=== PATIENT | male | born 1970 | race Caucasian/White ===

== ENCOUNTER 2018-02-24 09:58 | Emergency (ER) | payer OTHER, SELFPAY ==
--- NOTE | 2018-02-24 10:44 | EKG ---
Test Date: 2018-02-24 Test Time: 10:22:34 Outside Medical Sales Representative: ROB MEASUREMENT RESULTS: Intervals: Rate: 72 ME: 156 QRSD: 90 QT: 410 QTc: 448 [place]: P: 16 ME: 156 QRS: 6 T: 26 INTERPRETIVE STATEMENTS: Normal sinus rhythm Minimal voltage criteria for LVH, may be normal variant Borderline ECG Compared to ECG 11/03/2016 20:03:18 Left ventricular hypertrophy now present Electronically Signed On 02-24-18 10:43:30 CDT by Erwin Saucedo
[2018-02-24 10:50] LABS: Absolute Lymphocytes (CBC) 1.9 K/uL (0.7-4.9); Absolute Monocytes 0.5 K/uL (0.1-1.3); Absolute Neutrophil 5.4 K/uL (1.8-8.0); Basophils % 0.8 % (0-1.3); Eosinophils % 1.7 % (0-4.4); Hematocrit 43.9 % (39.6-49.0); Lymphocytes % 23.2 % (15.3-44.8); MCH 30.4 pg (27.0-35.0); MCV 91.5 fL (80-100); MPV 8.5 fL (7.6-11.3); Monocytes % 6.8 % (3.3-12.3)
[2018-02-24 10:58] LABS: Protime INR 1.01
[2018-02-24 11:11] LABS: ALT/SGPT 52 U/L (12-78); AST/SGOT 34 U/L (15-37); Albumin 3.6 g/dL (3.4-5.0); Alkaline Phosphatase 120 U/L (45-117); BUN Blood Urea Nitrogen 16 mg/dL (7-18); Bicarbonate 31 mmol/L (21-32); Bilirubin Direct 0.1 mg/dL (0-0.2); Bilirubin Total 0.3 mg/dL (0.2-1.0); CKMB Creatine Kinase MB < 1.0 ng/mL (0.3-3.6); Creatine Phosphokinase 94 U/L (39-308); Glucose Level 115 mg/dL (74-106); Magnesium 2.1 mg/dL (1.8-2.4); NT PRO-BNP 100 pg/mL (<125); Potassium 4.1 mmol/L (3.5-5.1); Protein, Total 7.8 g/dL (6.4-8.2); Sodium Level 141 mmol/L (136-145)
--- NOTE | 2018-02-24 11:31 | RAD REPORT ---
EXAM DESCRIPTION: RAD - Chest Single View - 02/24/2018 11:26 am CLINICAL HISTORY: SOB Chest pain. COMPARISON: Chest Single View dated 11/03/2016 FINDINGS: Portable technique limits examination quality. Mild interstitial pulmonary edema seen. The heart is moderately enlarged. No displaced fractures. IMPRESSION: Mild CHF/ volume overload pattern.
[2018-02-24] MEDS ORDERED: FUROSEMIDE 40 MG/4 ML VIAL ONE (12:30)
--- NOTE | 2018-02-24 12:47 | ER ---
Nurse's Notes [facility] Name: Ihsan Montoya Age: 47 yrs Sex: Male : 1970 Arrival Date: 02/24/2018 Time: 10:01 Bed 2 Private MD: None, None Diagnosis: Anxiety disorder, unspecified;Shortness of breath;Congestive Heart Failure - chronic Presentation: 02/24 10:06 Presenting complaint: Patient states: Shortness of breath for a couple of weeks, sg reports worsens with activity, dizziness with standing. reports swelling in legs. Transition of care: patient was not received from another setting of care. Onset of symptoms was February 24, 2018. Risk Assessment: Do you want to hurt yourself or someone else? Patient reports no desire to harm self or others. Initial Sepsis Screen: Does the patient meet any 2 criteria? No. Patient's initial sepsis screen is negative. Does the patient have a suspected source of infection? No. Patient's initial sepsis screen is negative. Care prior to arrival: None. 10:06 Method Of Arrival: Ambulatory sg 10:06 Acuity: STEFAN 3 sg Historical: - Allergies: 10:08 Narcan; sg - Home Meds: 10:08 Methadone Oral [Active]; sg - PMHx: 10:08 drug abuse; EDEMA; Obesity; sg - PSHx: 10:08 None; sg - Immunization history:: Adult Immunizations not up to date. - Social history:: Smoking status: Patient uses tobacco products, smokes one-half pack cigarettes per day. - Ebola Screening: : Patient negative for fever greater than or equal to 101.5 degrees Fahrenheit, and additional compatible Ebola Virus Disease symptoms Patient denies exposure to infectious person Patient denies travel to an Ebola-affected area in the 21 days before illness onset No symptoms or risks identified at this time. Screenin:15 Abuse screen: Denies threats or abuse. Denies injuries from another. Nutritional sv screening: No deficits noted. Tuberculosis screening: No symptoms or risk factors identified. Fall Risk None identified. Assessment: 10:15 General: Appears in no apparent distress. uncomfortable, obese, Behavior is calm, sv cooperative, appropriate for age. Pain: Denies pain. Neuro: Level of Consciousness is awake, alert, obeys commands, Oriented to person, place, time, situation, Moves all extremities. Full function Gait is steady, Speech is normal. Neuro: Reports dizziness. Cardiovascular: Heart tones S1 S2 present Patient's skin is warm and dry. Rhythm is sinus rhythm. Respiratory: Reports shortness of breath on exertion Airway is patent Respiratory effort is even, unlabored, Respiratory pattern is symmetrical, tachypnea Breath sounds are diminished bilaterally. Derm: Skin is normal. Musculoskeletal: Range of motion: intact in all extremities, Swelling present in right leg and left leg Reports swelling has improved since being on lasix. 11:47 Reassessment: Patient appears in no apparent distress at this time. No changes from sv previously documented assessment. Patient and/or family updated on plan of care and expected duration. Pain level reassessed. Patient is alert, oriented x 3, equal unlabored respirations, skin warm/dry/pink. 12:31 Reassessment: Patient appears in no apparent distress at this time. Patient and/or sv family updated on plan of care and expected duration. Pain level reassessed. Patient is alert, oriented x 3, equal unlabored respirations, skin warm/dry/pink. Vital Signs: 10:09 BP 124 / 87; Pulse 83; Resp 21 S; Temp 97.8(O); Pulse Ox 89% on R/A; Pain 6/10; dh3 10:41 BP 121 / 65; Pulse 78; Resp 22; Pulse Ox 97% on 2 lpm NC; sv 11:47 BP 142 / 86; Pulse 72; Resp 21; Pulse Ox 96% on 2 lpm NC; sv 12:31 BP 128 / 76; Pulse 94; Resp 22; Pulse Ox 96% on 2 lpm NC; sv ED Course: 10:01 Patient arrived in ED. sb2 10:02 None, None is Private Physician. sb2 10:06 Arm band placed on. sg 10:08 Triage completed. sg 10:15 Patient has correct armband on for positive identification. Placed in gown. Bed in low sv position. shipbuilding draftsperson on. Pulse ox on. NIBP on. Door closed. Head of bed elevated. 10:15 Initial lab(s) drawn, by me, sent to lab. Inserted saline lock: 20 gauge in left sv forearm, using aseptic technique. Blood collected. Flushed left forearm with 5 ml normal saline. 10:31 Ida Casillas RN is Primary Nurse. sv 10:37 Prem Ng MD is Attending Physician. kdr 10:41 ED physician to see patient. sv 10:46 EKG done, by time study technician. reviewed by Prem Ng MD. at1 10:47 Basic Metabolic Panel Sent. sv 10:47 CBC with Diff Sent. sv 10:47 Ckmb Sent. sv 11:21 X-ray completed. Portable x-ray completed in exam room. Patient tolerated procedure jb2 well. 11:23 XRAY Chest (1 view) In Process Unspecified. EDMS 12:57 No provider procedures requiring assistance completed. IV discontinued, intact, sv bleeding controlled, No redness/swelling at site. Pressure dressing applied. Administered Medications: 12:30 Drug: Lasix 40 mg Route: IVP; Site: left forearm; sv 12:57 Follow up: Response: No adverse reaction sv Point of Care Testing: Blood Glucose: 10:32 Blood Glucose: 86 mg/dL; sv Ranges: Output: 12:57 Urine: 300ml (Voided); Total: 300ml. sv Outcome: 12:46 Discharge ordered by MD. kdr 12:58 Discharged to home ambulatory. sv 12:58 Condition: stable 12:58 Condition: improved 12:58 Discharge instructions given to patient, Instructed on discharge instructions, follow up and referral plans. medication usage, Demonstrated understanding of instructions, follow-up care, medications, Prescriptions given X 1. 12:58 Patient left the ED. sv Signatures: Dispatcher [employer] EDMS Ida Casillas RN RN sv Gay, Steven, RN RN Prem Ng MD MD kdr Buechter, Jesse jb2 Alia barahona, optical laboratory mechanic EKG Tat1 Laura Andrade dh3 Holly Wright sb2 Corrections: (The following items were deleted from the chart) 10:11 10:09 Pulse 83bpm; Resp 21bpm; Spontaneous; Pulse Ox 89% RA; Pain 6/10; sg sg 10:26 10:09 BP 124 / 87; Pulse 83bpm; Resp 21bpm; Spontaneous; Pulse Ox 89% RA; Pain 6/10; sg dh3
--- NOTE | 2018-02-24 12:47 | EDPHYS ---
Physician Documentation [facility] Name: Ihsan Montoya Age: 47 yrs Sex: Male : 1970 Arrival Date: 02/24/2018 Time: 10:01 Bed 2 Private MD: None, None ED Physician Prem Ng HPI: 02/24 18:26 This 47 yrs old Male presents to ER via Ambulatory with complaints of kdr Shortness Of Breath, Dizziness. 18:26 The patient has shortness of breath at rest, with light activity. Onset: The kdr symptoms/episode began/occurred gradually, 3 day(s) ago. Duration: The symptoms are intermittent, with no pattern. The patient's shortness of breath is aggravated by light activity, Anxiety. Severity of symptoms: At their worst the symptoms were mild in the emergency department the symptoms are unchanged. The patient has experienced similar episodes in the past, several times. The patient has not recently seen a physician. Historical: - Allergies: 10:08 Narcan; sg - Home Meds: 10:08 Methadone Oral [Active]; sg - PMHx: 10:08 drug abuse; EDEMA; Obesity; sg - PSHx: 10:08 None; sg - Immunization history:: Adult Immunizations not up to date. - Social history:: Smoking status: Patient uses tobacco products, smokes one-half pack cigarettes per day. - Ebola Screening: : Patient negative for fever greater than or equal to 101.5 degrees Fahrenheit, and additional compatible Ebola Virus Disease symptoms Patient denies exposure to infectious person Patient denies travel to an Ebola-affected area in the 21 days before illness onset No symptoms or risks identified at this time. ROS: 18:26 Constitutional: Negative for fever, chills, and weight loss, Eyes: Negative for injury, kdr pain, redness, and discharge, ENT: Negative for injury, pain, and discharge, Neck: Negative for injury, pain, and swelling, Respiratory: Negative for shortness of breath, cough, wheezing, and pleuritic chest pain, Abdomen/GI: Negative for abdominal pain, nausea, vomiting, diarrhea, and constipation, Back: Negative for injury and pain, : Negative for injury, bleeding, discharge, and swelling, MS/Extremity: Negative for injury and deformity, Skin: Negative for injury, rash, and discoloration, Neuro: Negative for headache, weakness, numbness, tingling, and seizure activity. Allergy/Immunology: Negative for hives, rash, and allergies, Endocrine: Negative for neck swelling, polydipsia, polyuria, polyphagia, and marked weight changes, Hematologic/Lymphatic: Negative for swollen nodes, abnormal bleeding, and unusual bruising. 18:26 Cardiovascular: Positive for palpitations, Negative for chest pain, edema, orthopnea, paroxysmal nocturnal dyspnea, acute changes. 18:26 Skin: Positive for diaphoresis, When his anxiety kicks in. Exam: 18:26 Constitutional: This is a well developed, well nourished obese patient who is awake, kdr alert, and in no acute distress. Head/Face: Normocephalic, atraumatic. Eyes: Pupils equal round and reactive to light, extra-ocular motions intact. Lids and lashes normal. Conjunctiva and sclera are non-icteric and not injected. Cornea within normal limits. Periorbital areas with no swelling, redness, or edema. Neck: Trachea midline, no thyromegaly or masses palpated, and no cervical lymphadenopathy. Supple, full range of motion without nuchal rigidity, or vertebral point tenderness. No Meningismus. Chest/axilla: Normal chest wall appearance and motion. Nontender with no deformity. No lesions are appreciated. Cardiovascular: Regular rate and rhythm with a normal S1 and S2. No gallops, murmurs, or rubs. Normal PMI, no JVD. No pulse deficits. Respiratory: Lungs have equal breath sounds bilaterally, clear to auscultation and percussion. No rales, rhonchi or wheezes noted. No increased work of breathing, no retractions or nasal flaring. Abdomen/GI: Soft, non-tender, with normal bowel sounds. No distension or tympany. No guarding or rebound. No evidence of tenderness throughout. Back: No spinal tenderness. No costovertebral tenderness. Full range of motion. Skin: Warm, dry with normal turgor. Normal color with no rashes, no lesions, and no evidence of cellulitis. MS/ Extremity: Pulses equal, no cyanosis. Neurovascular intact. Full, normal range of motion. Neuro: Awake and alert, GCS 15, oriented to person, place, time, and situation. Cranial nerves II-XII grossly intact. Motor strength 5/5 in all extremities. Sensory grossly intact. Cerebellar exam normal. Normal gait. Psych: Awake, alert, with orientation to person, place and time. Behavior, mood, and affect are within normal limits. 18:26 ECG was reviewed by the Attending Physician. kdr Vital Signs: 10:09 BP 124 / 87; Pulse 83; Resp 21 S; Temp 97.8(O); Pulse Ox 89% on R/A; Pain 6/10; dh3 10:41 BP 121 / 65; Pulse 78; Resp 22; Pulse Ox 97% on 2 lpm NC; sv 11:47 BP 142 / 86; Pulse 72; Resp 21; Pulse Ox 96% on 2 lpm NC; sv 12:31 BP 128 / 76; Pulse 94; Resp 22; Pulse Ox 96% on 2 lpm NC; sv MDM: 12:46 Patient medically screened. kdr 18:26 Data reviewed: vital signs, nurses notes. kdr 18:26 Special discussion: I discussed with the patient/guardian in detail that at this point kdr there is no indication for admission to the hospital. It is understood, however, that if the symptoms persist or worsen the patient needs to return immediately for re-evaluation. 02/24 10:33 Order name: Basic Metabolic Panel 02/24 10:33 Order name: CBC with Diff 02/24 10:33 Order name: Ckmb 02/24 10:33 Order name: CPK; Complete Time: 12:07 sv 02/24 10:33 Order name: LFT's; Complete Time: 12:07 sv 02/24 10:33 Order name: Magnesium; Complete Time: 12:07 02/24 10:33 Order name: NT PRO-BNP; Complete Time: 12:07 02/24 10:33 Order name: PT-INR; Complete Time: 12:07 sv 02/24 10:33 Order name: Ptt, Activated; Complete Time: 12:07 sv 02/24 10:33 Order name: Troponin (emerg Dept Use Only); Complete Time: 12:07 sv 02/24 10:33 Order name: Lactate; Complete Time: 12:07 sv 02/24 10:33 Order name: Blood Culture Adult (2) 02/24 10:33 Order name: Basic Metabolic Panel; Complete Time: 12:07 EDMS 02/24 10:33 Order name: CBC with Automated Diff; Complete Time: 12:07 EDMS 02/24 10:33 Order name: XRAY Chest (1 view); Complete Time: 12: sv 02/24 10:33 Order name: EKG; Complete Time: : sv 02/24 10:33 Order name: Cardiac monitoring; Complete Time: 10:33 sv 02/24 10:33 Order name: EKG - Nurse/Tech; Complete Time: 10:33 sv 02/24 10:33 Order name: IV Saline Lock; Complete Time: : sv 02/24 10:33 Order name: Labs collected and sent; Complete Time: : sv 02/24 10:33 Order name: O2 Per Protocol; Complete Time: : sv 02/24 10:33 Order name: O2 Sat Monitoring; Complete Time: : sv 02/24 10:33 Order name: CKMB Creatine Kinase MB; Complete Time: 12: EDMS EC:26 Rhythm is regular. QRS [place] is Normal. DE interval is normal. QRS interval is normal. kdr QT interval is normal. No Q waves. T waves are Normal. Clinical impression: NSR w/ Non-specific ST/T Changes. Administered Medications: 12:30 Drug: Lasix 40 mg Route: IVP; Site: left forearm; sv 12:57 Follow up: Response: No adverse reaction sv Point of Care Testing: Blood Glucose: 10:32 Blood Glucose: 86 mg/dL; sv Ranges: Critical Glucose Levels:Adult <50 mg/dl or >400 mg/dl <40 mg/dl or >180 mg/dl Disposition: 02/24/18 12:46 Discharged to Home. Impression: Anxiety disorder, unspecified, Shortness of breath, Congestive Heart Failure - chronic. - Condition is Stable. - Discharge Instructions: Shortness of Breath, [id number], Panic Attacks, [id number], Generalized Anxiety Disorder. - Prescriptions for Lasix 20 mg Oral Tablet - take 1 tablet by ORAL route every 12 hours; 60 tablet. - Medication Reconciliation Form, Thank You Letter form. - Follow up: Private Physician; When: 2 - 3 days; Reason: If symptoms return, Further diagnostic work-up, Recheck today's complaints, Continuance of care, Re-evaluation by your physician. - Problem is an acute exacerbation. - Symptoms have improved. Signatures: Dispatcher [employer] Ida Becerra RN RN Denis Diggs RN RN Prem Ng MD MD kdr Corrections: (The following items were deleted from the chart) 12:58 12:46 02/24/2018 12:46 Discharged to Home. Impression: Anxiety disorder, unspecified; sv Shortness of breath; Congestive Heart Failure - chronic. Condition is Stable. Forms are Medication Reconciliation Form, Thank You Letter, Antibiotic Education, Prescription Opioid Use. Follow up: Private Physician; When: 2 - 3 days; Reason: If symptoms return, Further diagnostic work-up, Recheck today's complaints, Continuance of care, Re-evaluation by your physician. Problem is an acute exacerbation. Symptoms have improved. kdr
[2018-02-24 13:03] VITALS: TEMP 97.8
[2018-02-24 13:05] VITALS: BP 142/86; O2SAT 96
== END 2018-02-24 12:58 | disposition home or self-care (01) ==
LOC: ER 09:58
DX: I50.9 Heart failure, unspecified (principal); F41.9 Anxiety disorder, unspecified; F17.210 Nicotine dependence, cigarettes, uncomplicated; Z88.5 Allergy status to narcotic agent
CPT/HCPCS: 36415; 71045; 80048; 80076; 82550; 82553; 82962; 83605; 83735; 83880; 84484; 85025; 85610; 85730; 87040; 93005; 96374; 99285

== ENCOUNTER 2018-05-26 06:47 | Inpatient (IN) | payer OTHER ==
[2018-05-26] MEDS ORDERED: ALBUTEROL 2.5 MG/3 ML NEB SOL ONE ×3 (07:07→19:53)
[2018-05-26] MEDS ORDERED: IPRATROPIUM BROM 0.5MG/2.5ML ONE ×3 (07:08→19:53)
[2018-05-26] MEDS ORDERED: predniSONE 20 MG TAB ONE (07:08)
[2018-05-26 07:20] LABS: Blood Gas Oxyhemoglobin 77.1 % (94-97); Blood O2 Saturation 80.1 % (92-98.5)
[2018-05-26 07:54] LABS: Absolute Lymphocytes (CBC) 1.7 K/uL (0.7-4.9); Absolute Monocytes 0.5 K/uL (0.1-1.3); Absolute Neutrophil 5.9 K/uL (1.8-8.0); Basophils % 0.9 % (0-1.3); Eosinophils % 1.5 % (0-4.4); Hematocrit 44.1 % (39.6-49.0); Lymphocytes % 20.1 % (15.3-44.8); MCH 30.7 pg (27.0-35.0); MCV 94.1 fL (80-100); MPV 8.6 fL (7.6-11.3); Monocytes % 6.3 % (3.3-12.3); RBC Red Blood Cell Count 4.68 M/uL (4.33-5.43)
[2018-05-26 07:55] LABS: Protime INR 1.02
--- NOTE | 2018-05-26 08:11 | RAD REPORT ---
EXAM DESCRIPTION: RAD - Chest Single View - 05/26/2018 7:53 am CLINICAL HISTORY: COPD Chest pain. COMPARISON: Chest Single View dated 02/24/2018; Chest Single View dated 11/03/2016 FINDINGS: Portable technique limits examination quality. Mild interstitial pulmonary edema is seen. The heart is mildly moderately enlarged in size. No displa john fractures. IMPRESSION: Mild CHF versus volume overload pattern.
[2018-05-26 08:15] LABS: ALT/SGPT 43 U/L (12-78); AST/SGOT 22 U/L (15-37); Albumin 3.7 g/dL (3.4-5.0); Alkaline Phosphatase 126 U/L (45-117); BUN Blood Urea Nitrogen 24 mg/dL (7-18); Bicarbonate 29 mmol/L (21-32); Bilirubin Direct < 0.1 mg/dL (0-0.2); Bilirubin Total 0.3 mg/dL (0.2-1.0); Glucose Level 161 mg/dL (74-106); Magnesium 2.4 mg/dL (1.8-2.4); NT PRO-BNP 29 pg/mL (<125); Potassium 4.6 mmol/L (3.5-5.1); Protein, Total 8.1 g/dL (6.4-8.2); Sodium Level 139 mmol/L (136-145); Troponin (Emerg Dept Use Only) < 0.02 ng/mL (0.0-0.045)
--- NOTE | 2018-05-26 10:07 | ER ---
Nurse's Notes [facility] Name: Ihsan Montoya Age: 48 yrs Sex: Male : 1970 Arrival Date: 05/26/2018 Time: 06:49 Bed 16 Private MD: Diagnosis: Shortness of breath;Respiratory Acidosis, sleep apnea, dependent edema Presentation: 05/26 07:00 Presenting complaint: EMS states: pt c/o SOB and family reported he was having aa1 difficulty speaking. Pt given A\\T\\A tx PUPPET MAKER by EMS. Upon arrival to ED pt 88% on RA which improved to 95% on 2L NC. Pt drowsy and falling asleep during triage questions. Reports his only home med is methadone and that he cannot receive Narcan because [facility] gave it to him the last time he was there and he "flat lined" twice. States, "I just have bad anxiety and trust issues because they snuck that Narcan into me without me knowing." Pt asked multiple times, "Are you sure you didn't give me anything in my IV.". Transition of care: patient was not received from another setting of care. Onset of symptoms was May 26, 2018. Risk Assessment: Do you want to hurt yourself or someone else? Patient reports no desire to harm self or others. Initial Sepsis Screen: Does the patient meet any 2 criteria? HR > 90 bpm. Does the patient have a suspected source of infection? No. Patient's initial sepsis screen is negative. Care prior to arrival: Medication(s) given: Albuterol Neb x 1, Atrovent Neb x 1, IV initiated. 20 GA, in the left antecubital area, Med neb given. Oxygen administered. via nasal cannula. 07:00 Method Of Arrival: EMS: [facility] aa1 07:00 Acuity: STEFAN 2 aa1 Historical: - Allergies: 07:15 Narcan; aa1 - Home Meds: 07:15 Methadone Oral [Active]; aa1 07:14 Methadone Oral [Active]; aa1 - PMHx: 06:51 Obesity; EDEMA; drug abuse; gs 07:13 Anxiety; Panic Attacks; aa1 - PSHx: 07:13 None; aa1 - Immunization history:: Flu vaccine is not up to date. - Social history:: The patient lives at home, Smoking status: Patient uses tobacco products, smokes one-half pack cigarettes per day. - Ebola Screening: : Patient denies exposure to infectious person Patient denies travel to an Ebola-affected area in the 21 days before illness onset. Screenin:55 Abuse screen: Denies threats or abuse. Denies injuries from another. Nutritional aa1 screening: No deficits noted. Tuberculosis screening: No symptoms or risk factors identified. Fall Risk IV access (20 points). Assessment: 07:05 General: Appears in no apparent distress. comfortable, Behavior is drowsy, listless. ch Pain: Denies pain. Neuro: Level of Consciousness is lethargic, Oriented to person, place, time, Medical Office Clerk are equal bilaterally Moves all extremities. Full function Gait is steady, Speech is slurred, Facial symmetry appears normal, Facial symmetry: tongue is midline, Pupils are PERRLA. 07:05 Cardiovascular: Heart tones muffled pt has a high bmi. Capillary refill < 3 seconds in ch bilateral fingers toes Clubbing of nail beds is present Patient's skin is warm and dry. Pulses are all present. Edema is 4+ to right wrist, right hand, left midcalf, left ankle, left foot, left wrist, left hand, right midcalf, right ankle and right foot pitting to left midcalf, left ankle, right midcalf and right ankle Rhythm is regular. Respiratory: Airway is patent Trachea midline Respiratory effort is even, labored, gasping, Respiratory pattern is pt has regular respirations with intermittent episodes of sleep apnea Breath sounds with crackles bilaterally. GI: Abdomen is round non-distended, obese, Bowel sounds present X 4 quads. Abd is soft and non tender X 4 quads. : No signs and/or symptoms were reported regarding the genitourinary system. Derm: Skin is pale. Musculoskeletal: No signs and/or symptoms reported regarding the musculoskeletal system. 07:59 Reassessment: Patient appears in no apparent distress at this time. pt tolerating bi ch pap well. pt states he feels anxious, pt given verbal reassurance. pt respiratory pattern still has some apnea in it, pt responds to verbal stimuli, positive gag reflex. 08:36 Reassessment: Patient appears in no apparent distress at this time. No changes from previously documented assessment. pt appears to be sleeping, no s/s of distress. 12:59 Reassessment: Patient appears in no apparent distress at this time. No changes from previously documented assessment. I call report to the floor, Nafisa states pt is going to ICU. 14:00 Reassessment: Patient appears in no apparent distress at this time. Patient and/or ch family updated on plan of care and expected duration. Pain level reassessed. pt assisted oob, stands to use urinal. pt tolerated well. pt educated on admission and wait for ICU bed. 15:41 Reassessment: Patient appears in no apparent distress at this time. see [facility] for charting. Vital Signs: 06:50 BP 116 / 83; Pulse 103; Resp 16; Temp 98.6; Pulse Ox 95% on 2 lpm NC; Weight 192.78 kg; aa1 Height 5 ft. 11 in. (180.34 cm); Pain 0/10; 07:59 BP 170 / 95; Pulse 90; Resp 16; Temp 98.3; Pulse Ox 96% on 50% BiPAP; Pain 0/10; ch 08:36 BP 117 / 50; Pulse 80; Resp 12; Pulse Ox 97% on BiPAP; ch 10:00 BP 134 / 86; Pulse 78; Resp 16; Pulse Ox 99% on BiPAP; ch 11:00 BP 147 / 89; Pulse 84; Resp 12; Pulse Ox 97% on BiPAP; ch 12:00 BP 126 / 68; Pulse 75; Resp 10; Temp 98.2; Pulse Ox 99% on BiPAP; Pain 0/10; ch 12:59 BP 161 / 97; Pulse 98; Resp 22; Temp 98.8; Pulse Ox 96% on BiPAP; Pain 0/10; ch 19:09 BP 113 / 61; Pulse 103; Resp 20; Pulse Ox 95% on BiPAP; mt 05/27 00:14 BP 112 / 64; Pulse 79; Resp 20; Pulse Ox 100% on BiPAP; mt 05/26 06:50 Body Mass Index 59.27 (192.78 kg, 180.34 cm) aa1 ED Course: 05/26 06:49 Patient arrived in ED. am2 06:49 Oral Ordonez MD is Attending Physician. 06:50 Arm band placed on left wrist. Patient placed in an exam room, on a stretcher. aa1 06:55 Velia Aguirre, GENNA is Primary Nurse. 06:55 Patient has correct armband on for positive identification. Bed in low position. Call aa1 light in reach. monitor worker on. Pulse ox on. NIBP on. 06:55 Maintain EMS IV. Dressing intact. Site clean \\T\\ dry. Gauge \\T\\ site: 20g LAC. Oxygen aa 1 administration via nasal cannula \\T\\ 2L/min. 07:10 Triage completed. aa1 07:15 No apparent distress. Resting quietly. ch 07:15 No provider procedures requiring assistance completed. Inserted saline lock: 20 gauge ch in left forearm, using aseptic technique. Blood collected. 07:29 Attending Physician role handed off by Oral Ordonez MD kdr 07:29 Prem Ng MD is Attending Physician. kdr 07:51 X-ray completed. Portable x-ray completed in exam room. Patient tolerated procedure ag1 well. 07:52 XRAY Chest (1 view) In Process Unspecified. EDMS 07:59 Door closed. Noise minimized. Warm blanket given. Pillow given. ch 10:05 Lacie Medel MD is Hospitalizing Provider. kdr 19:28 Report given to Tim. ch 20:16 Curt Cook, GENNA is Primary Nurse. jb4 05/27 03:30 Patient admitted, IV remains in place. aa1 Administered Medications: 05/26 07:00 Drug: Albuterol 2.5 mg Route: Inhalation; ch 08:35 Follow up: Response: No adverse reaction; Marked relief of symptoms ch 07:00 Drug: AtroVENT Aerosol 0.5 mg Route: Inhalation; ch 08:35 Follow up: Response: No adverse reaction; Marked relief of symptoms ch 07:00 Drug: predniSONE 40 mg Route: PO; ch 08:35 Follow up: Response: No adverse reaction; Marked relief of symptoms ch Outcome: 10:06 Decision to Hospitalize by Provider. kdr 19:00 Admitted to ER Hold. Please see [facility] for further documentation. jb4 05/27 03:30 Admitted to ICU accompanied by nurse, accompanied by tech, via stretcher, room 5, with aa1 oxygen, on monitor, with chart, Other Report given to Lisa in ICU by Rodri Condition: stable 03:50 Patient left the ED. aa1 Signatures: Dispatcher [employer] EDMS Velia Aguirre RN RN Kenisha Turcios RN RN aa1 Prem Ng MD MD [facility] Daria Davis ag1 Curt Cook, RN RN jb4 Alia Berkowitz am2 Shante Paige mt, Gregory, MD MD gs Corrections: (The following items were deleted from the chart) 05/26 07:15 06:51 Allergies: Narcan [Inactive]; aa1 07:15 06:51 Home Meds: Methadone Oral [Inactive]; aa1
--- NOTE | 2018-05-26 10:08 | EKG ---
Test Date: 2018-05-26 Test Time: 07:07:36 [employer]ying [employer]: CHRISTOPHER MEASUREMENT RESULTS: Intervals: Rate: 104 MT: 166 QRSD: 90 QT: 326 QTc: 428 [place]: P: 43 MT: 166 QRS: 18 T: 59 INTERPRETIVE STATEMENTS: Sinus tachycardia Otherwise normal ECG Compared to ECG 02/24/2018 10:22:34 Sinus rhythm no longer present Left ventricular hypertrophy no longer present Electronically Signed On 05-26-18 10:08:05 CAGE UNLOADER by Erwin Saucedo
--- NOTE | 2018-05-26 10:08 | EDPHYS ---
Physician Documentation [facility] Name: Ihsan Montoya Age: 48 yrs Sex: Male : 1970 Arrival Date: 05/26/2018 Time: 06:49 Bed 16 Private MD: ED Physician Prem Ng HPI: 05/26 06:50 This 48 yrs old Male presents to ER via Unassigned with complaints of gs Breathing Difficulty. 06:50 The patient has shortness of breath at rest. Onset: The symptoms/episode began/occurred gs acutely, this morning. Duration: The symptoms are continuous. The patient's shortness of breath is aggravated by exertion, is alleviated by nebulizer treatment, by ems. Associated signs and symptoms: Pertinent positives: productive cough, Pertinent negatives: chest pain, fever. Severity of symptoms: At their worst the symptoms were severe in the emergency department the symptoms have improved markedly. The patient has experienced similar episodes in the past, a few times. Historical: - Allergies: 07:15 Narcan; aa1 - Home Meds: 07:15 Methadone Oral [Active]; aa1 07:14 Methadone Oral [Active]; aa1 - PMHx: 06:51 Obesity; EDEMA; drug abuse; gs 07:13 Anxiety; Panic Attacks; aa1 - PSHx: 07:13 None; aa1 - Immunization history:: Flu vaccine is not up to date. - Social history:: The patient lives at home, Smoking status: Patient uses tobacco products, smokes one-half pack cigarettes per day. - Ebola Screening: : Patient denies exposure to infectious person Patient denies travel to an Ebola-affected area in the 21 days before illness onset. ROS: 06:51 All other systems are negative. gs 05/27 13:48 Constitutional: Negative for fever, chills, and weight loss, Cardiovascular: Negative kdr for chest pain, palpitations, and edema, Abdomen/GI: Negative for abdominal pain, nausea, vomiting, diarrhea, and constipation, Back: Negative for injury and pain, : Negative for injury, bleeding, discharge, and swelling, MS/Extremity: Negative for injury and deformity. Respiratory: Positive for shortness of breath. Exam: 05/26 06:51 Head/Face: Normocephalic, atraumatic. Eyes: Pupils equal round and reactive to light, gs extra-ocular motions intact. Lids and lashes normal. Conjunctiva and sclera are non-icteric and not injected. Cornea within normal limits. Periorbital areas with no swelling, redness, or edema. ENT: Nares patent. No nasal discharge, no septal abnormalities noted. Tympanic membranes are normal and external auditory canals are clear. Oropharynx with no redness, swelling, or masses, exudates, or evidence of obstruction, uvula midline. Mucous membranes moist. Neck: Trachea midline, no thyromegaly or masses palpated, and no cervical lymphadenopathy. Supple, full range of motion without nuchal rigidity, or vertebral point tenderness. No Meningismus. Chest/axilla: Normal chest wall appearance and motion. Nontender with no deformity. No lesions are appreciated. Abdomen/GI: Soft, non-tender, with normal bowel sounds. No distension or tympany. No guarding or rebound. No evidence of tenderness throughout. Back: No spinal tenderness. No costovertebral tenderness. Full range of motion. Skin: Warm, dry with normal turgor. Normal color with no rashes, no lesions, and no evidence of cellulitis. Neuro: Awake and alert, GCS 15, oriented to person, place, time, and situation. Cranial nerves II-XII grossly intact. Motor strength 5/5 in all extremities. Sensory grossly intact. Cerebellar exam normal. Normal gait. Constitutional: The patient appears alert, awake. Cardiovascular: Rate: tachycardic, Rhythm: regular, Pulses: no pulse deficits are appreciated, Edema: 3+ edema to level of left midcalf, left ankle, right midcalf and right ankle, venous stasis changes. Respiratory: severe repiratory distress is noted, Respirations: tachypnea, Breath sounds: decreased breath sounds, that are moderate, are located in both bases. Musculoskeletal/extremity: Perfusion: the patient is normally perfused throughout, warm, Edema. Vital Signs: 06:50 BP 116 / 83; Pulse 103; Resp 16; Temp 98.6; Pulse Ox 95% on 2 lpm NC; Weight 192.78 kg; aa1 Height 5 ft. 11 in. (180.34 cm); Pain 0/10; 07:59 BP 170 / 95; Pulse 90; Resp 16; Temp 98.3; Pulse Ox 96% on 50% BiPAP; Pain 0/10; ch 08:36 BP 117 / 50; Pulse 80; Resp 12; Pulse Ox 97% on BiPAP; ch 10:00 BP 134 / 86; Pulse 78; Resp 16; Pulse Ox 99% on BiPAP; ch 11:00 BP 147 / 89; Pulse 84; Resp 12; Pulse Ox 97% on BiPAP; ch 12:00 BP 126 / 68; Pulse 75; Resp 10; Temp 98.2; Pulse Ox 99% on BiPAP; Pain 0/10; ch 12:59 BP 161 / 97; Pulse 98; Resp 22; Temp 98.8; Pulse Ox 96% on BiPAP; Pain 0/10; ch 19:09 BP 113 / 61; Pulse 103; Resp 20; Pulse Ox 95% on BiPAP; mt 05/27 00:14 BP 112 / 64; Pulse 79; Resp 20; Pulse Ox 100% on BiPAP; hi 05/26 06:50 Body Mass Index 59.27 (192.78 kg, 180.34 cm) aa1 MDM: 05/26 06:49 Patient medically screened. 06:51 Differential diagnosis: Bronchitis CHF exacerbation, Chronic Obstructive Pulmonary gs Disease. Data reviewed: vital signs, nurses notes, EMS record. 05/26 06:55 Order name: Basic Metabolic Panel; Complete Time: 09:54 05/26 06:55 Order name: CBC with Diff; Complete Time: 09:54 05/26 06:55 Order name: LFT's; Complete Time: 09:54 05/26 06:55 Order name: Magnesium; Complete Time: 09:54 05/26 06:55 Order name: NT PRO-BNP; Complete Time: 09:54 05/26 06:55 Order name: PT-INR; Complete Time: 09:54 05/26 06:55 Order name: Troponin (emerg Dept Use Only); Complete Time: 09:54 05/26 06:55 Order name: Blood Culture* 05/26 06:55 Order name: Flu; Complete Time: 09:54 05/26 06:55 Order name: ABG; Complete Time: 07:31 05/26 15:23 Order name: Urine Dipstick--Ancillary (enter results) bd 05/26 15:50 Order name: Urine Dipstick-Ancillary; Complete Time: 21:11 EDMS 05/26 16:29 Order name: Thyroid Stimulating Hormone; Complete Time: 21:11 [facility] 05/26 16:43 Order name: ABG 05/26 06:55 Order name: XRAY Chest (1 view); Complete Time: 09:54 05/26 06:55 Order name: EKG; Complete Time: 07:18 05/26 06:55 Order name: Cardiac monitoring; Complete Time: 08:05 05/26 06:55 Order name: EKG - Nurse/Tech; Complete Time: 08:05 05/26 06:55 Order name: IV Saline Lock; Complete Time: 08:05 05/26 06:55 Order name: Labs collected and sent; Complete Time: 08:05 05/26 06:55 Order name: O2 Per Protocol; Complete Time: 08:05 05/26 06:55 Order name: O2 Sat Monitoring; Complete Time: 08:05 05/26 17:08 Order name: ABG Arterial Blood Gas; Complete Time: 21:11 [facility] 05/26 23:39 Order name: ABG Arterial Blood Gas; Complete Time: 00:40 [facility] 05/27 01:32 Order name: Gram Stain--Anaerobic Bottle [facility] 05/27 02:38 Order name: ABG Arterial Blood Gas EDMS Administered Medications: 07:00 Drug: Albuterol 2.5 mg Route: Inhalation; ch 08:35 Follow up: Response: No adverse reaction; Marked relief of symptoms ch 07:00 Drug: AtroVENT Aerosol 0.5 mg Route: Inhalation; ch 08:35 Follow up: Response: No adverse reaction; Marked relief of symptoms ch 07:00 Drug: predniSONE 40 mg Route: PO; ch 08:35 Follow up: Response: No adverse reaction; Marked relief of symptoms Disposition: 05/26/18 10:06 Hospitalization ordered by Lacie Medel for Inpatient Admission. Preliminary diagnosis are Shortness of breath, Respiratory Acidosis, sleep apnea, dependent edema. - Bed requested for Intensive Care Unit. - Status is Inpatient Admission. aa1 - Condition is Fair. - Problem is an acute exacerbation. - Symptoms have improved. UTI on Admission? No Signatures: Dispatcher [employer] EDMS Latha Mejia Christina, RN RN Denis Welch RN RN Kenisha Turcios RN RN aa1 Prem Ng MD MD kdr Martinez, Eric em1 Josefina Arroyo RN RN cg Christina Alva RN RN df Oral Ordonez MD MD gs Corrections: (The following items were deleted from the chart) 07:15 06:51 Allergies: Narcan [Inactive]; aa1 07:15 06:51 Home Meds: Methadone Oral [Inactive]; aa1 12:30 10:06 Hospitalization Ordered by Lacie Medel MD for Observation. Preliminary bd diagnosis is Shortness of breath; Respiratory Acidosis, sleep apnea, dependent edema. Bed requested for Telemetry/MedSurg (observation). Status is Observation. Condition is Fair. Problem is an acute exacerbation. Symptoms have improved. UTI on Admission? No. kdr 13:41 12:30 05/26/2018 10:06 Hospitalization Ordered by Lacie Medel MD for Observation. bd Preliminary diagnosis is Shortness of breath; Respiratory Acidosis, sleep apnea, dependent edema. Bed requested for Telemetry/MedSurg (observation). Status is Observation. Condition is Fair. Problem is an acute exacerbation. Symptoms have improved. UTI on Admission? No. bd 15:06 13:41 05/26/2018 10:06 Hospitalization Ordered by Lacie Medel MD for Inpatient sg Admission. Preliminary diagnosis is Shortness of breath; Respiratory Acidosis, sleep apnea, dependent edema. Bed requested for Intensive Care Unit. Status is Inpatient Admission. Condition is Fair. Problem is an acute exacerbation. Symptoms have improved. UTI on Admission? No. bd 15:07 15:06 05/26/2018 10:06 Hospitalization Ordered by Lacie Medel MD for Inpatient sg Admission. Preliminary diagnosis is Shortness of breath; Respiratory Acidosis, sleep apnea, dependent edema. Bed requested for [facility] ER HOLD. Status is Inpatient Admission. Condition is Fair. Problem is an acute exacerbation. Symptoms have improved. UTI on Admission? No. sg 18:31 15:07 05/26/2018 10:06 Hospitalization Ordered by Lacie Medel MD for Inpatient df Admission. Preliminary diagnosis is Shortness of breath; Respiratory Acidosis, sleep apnea, dependent edema. Bed requested for [facility] ER HOLD. Status is Inpatient Admission. Condition is Fair. Problem is an acute exacerbation. Symptoms have improved. UTI on Admission? No. sg 20:28 18:31 05/26/2018 10:06 Hospitalization Ordered by Lacie Medel MD for Inpatient cg Admission. Preliminary diagnosis is Shortness of breath; Respiratory Acidosis, sleep apnea, dependent edema. Bed requested for Intensive Care Unit. Status is Inpatient Admission. Condition is Fair. Problem is an acute exacerbation. Symptoms have improved. UTI on Admission? No. df 05/27 02:49 05/26 20:28 05/26/2018 10:06 Hospitalization Ordered by Lacie Medel MD for Inpatient em1 Admission. Preliminary diagnosis is Shortness of breath; Respiratory Acidosis, sleep apnea, dependent edema. Bed requested for Intensive Care Unit. Status is Inpatient Admission. Condition is Fair. Problem is an acute exacerbation. Symptoms have improved. UTI on Admission? No. cg 05/27 03:50 02:49 05/26/2018 10:06 Hospitalization Ordered by Lacie Medel MD for Inpatient aa1 Admission. Preliminary diagnosis is Shortness of breath; Respiratory Acidosis, sleep apnea, dependent edema. Bed requested for Intensive Care Unit. Status is Inpatient Admission. Condition is Fair. Problem is an acute exacerbation. Symptoms have improved. UTI on Admission? No. em1
[2018-05-26] MEDS ORDERED: ONDANSETRON 4 MG/2 ML VIAL ONE (14:47)
[2018-05-26] MEDS ORDERED: ACETAMINOPHEN 500 MG TAB ONE ×2 (14:47→18:05)
[2018-05-26] MEDS ORDERED: LEVALBUTEROL 1.25 MG/3 ML NEB ONE (15:16)
[2018-05-26] MEDS ORDERED: ONDANSETRON 4 MG/2 ML VIAL IV PRN (15:35)
[2018-05-26] MEDS: ACETAMINOPHEN 500 MG TAB PO PRN ×2 (15:39→18:02)
[2018-05-26 15:49] LABS: Urine Blood NEGATIVE (NEG); Urine Glucose NEGATIVE (NEG); Urine Protein 1+ (NEG); Urine Specific Gravity >1.030 (1.005-1.030); Urine pH 5.5 (5.0-7.0)
[2018-05-26] MEDS: ALBUTEROL 2.5 MG/3 ML NEB SOL NEB SCH ×2 (16:14→19:30)
[2018-05-26] MEDS: IPRATROPIUM BROM 0.5MG/2.5ML NEB SCH ×2 (16:14→19:30)
[2018-05-26] MEDS: ENOXAPARIN 40 MG/0.4 ML SQ SCH (17:00)
[2018-05-26 17:06] LABS: Arterial Blood Carboxyhemoglob 1.8 % (0-1.5); Blood Gas Oxyhemoglobin 92.4 % (94-97); Blood O2 Saturation 95.2 % (92-98.5)
--- NOTE | 2018-05-26 17:36 | P.HP ---
Certification for Inpatient Patient admitted to: Inpatient With expected LOS: >2 Midnights Patient will require the following post-hospital care: None Practitioner: I am a practitioner with admitting privileges, knowledge of patient current condition, hospital course, and medical plan of care. Services: Services provided to patient in accordance with Admission requirements found in Title 42 Section 412.3 of the Code of Federal Regulations Patient History Date of Service: 05/26/18 Reason for admission: SOB History of Present Illness: 48 y/o With H.o Obesity and KEITH presented to the ED with C/o SOB and tiredness that started for past couple of days. pt noted this AM his Oxygen was < 88% and thus decided to come to the ER. Pt states he has not been using his CPAP due to Not being able to afford it. Denied having cough or congestion. Has not been seen by PCP recently. Pt denied recent sick exposure, fever or chills. No other associated Symptoms. In the ER pt was found to be in Acute Respiratory failure with Elevated CO2 and thus was referred for admission. Allergies naloxone [From Narcan] Allergy (Unverified 11/04/16 00:12) Unknown No Known Drug Allergies Allergy (Unverified 10/17/14 19:33) Unknown No Known Allergy (Uncoded 03/15/17 16:01) Unknown - Past Medical/Surgical History Diabetic: No - Social History Smoking Status: Current every day smoker Alcohol use: No CD- Drugs: Yes Caffeine use: No Place of Residence: Home Review of Systems 10-point ROS is otherwise unremarkable Physical Examination - Vital Signs Temperature: 98.6 F Blood Pressure: 127/71 Pulse: 92 Respirations: 12 Pulse Ox (%): 99 - Physical Exam General: Alert, Acute distress, Obese, Other (Intermittent Lethargy) HEENT: Atraumatic, PERRLA, Mucous membr. moist/pink, EOMI, Sclerae nonicteric Neck: Supple, 2+ carotid pulse no bruit, No LAD, Without JVD or thyroid abnormality Respiratory: Normal air movement, Crackles/rales, Expiratory wheezes, Inspiratory wheezes Cardiovascular: Regular rate/rhythm, Normal S1 S2 Gastrointestinal: Normal bowel sounds, No tenderness Musculoskeletal: No tenderness Integumentary: No rashes Neurological: Normal gait, Normal speech, Normal strength at 5/5 x4 extr, Normal tone, Normal affect Lymphatics: No axilla or inguinal lymphadenopathy - Studies Laboratory Data (last 24 hrs) 05/26/18 07:30: PT 12.0, INR 1.02 05/26/18 07:30: WBC 8.3, Hgb 14.4, Hct 44.1, Plt Count 219 05/26/18 07:30: Sodium 139, Potassium 4.6, BUN 24 H, Creatinine 1.00, Glucose 161 H, Magnesium 2.4, Total Bilirubin 0.3, AST 22, ALT 43, Alkaline Phosphatase 126 H Microbiology Data (last 24 hrs): 05/26/18 07:34 Nasopharnyx Influenza Type A Antigen Screen - Final 05/26/18 07:34 Nasopharnyx Influenza Type B Antigen Screen - Final Assessment and Plan - Problems (Diagnosis) (1) Acute respiratory failure Current Visit: Yes Status: Acute Plan: Acute Hypoxic hypercapnic RF due to noncompliance with CPAP. -Pt with h.o KEITH but cannot affort CPAP machine thus has not been using it. -On BIPAP now. ABG with Hypercapnic RF. -Will admit to ICU in an event patient has worsening and needs to be intubated -Pulmonology consulted. Qualifiers: Respiratory failure complication: hypoxia and hypercapnia Qualified Code(s) : J96.01 - Acute respiratory failure with hypoxia; J96.02 - Acute respiratory failure with hypercapnia (2) KEITH (obstructive sleep apnea) Current Visit: Yes Status: Chronic Plan: H/o KEITH but does not use CPAP at home (3) Obesity Current Visit: Yes Status: Chronic Qualifiers: Obesity type: due to excess calories Obesity classification: adult class 3 (BMI >= 40) Serious obesity comorbidity presence: with serious comorbidity Body mass index: BMI 45.0-49.9 Qualified Code(s): E66.01 - Morbid (severe) obesity due to excess calories; Z68.42 - Body mass index (BMI) 45.0-49.9, adult (4) Anxiety Current Visit: Yes Status: Chronic Discharge Plan: Home Plan to discharge in: Greater than 2 days - Advance Directives Does patient have a Living Will: No Does patient have a Durable POA for Healthcare: No - Code Status/Comfort Care Code Status Assessed: Yes Critical Care: Yes
[2018-05-26] MEDS ORDERED: INFLUENZA VACCINE (for 3y+) 0.5 ML DOSE IMVAC ONE (18:00)
[2018-05-26] MEDS ORDERED: ENOXAPARIN 40 MG/0.4 ML SQ ONE (18:12)
[2018-05-26 23:37] LABS: Arterial Blood Carboxyhemoglob 1.4 % (0-1.5); Blood Gas Oxyhemoglobin 91.7 % (94-97); Blood O2 Saturation 94.1 % (92-98.5)
[2018-05-27 02:34] LABS: Arterial Blood Carboxyhemoglob 1.6 % (0-1.5); Blood Gas Oxyhemoglobin 97.2 % (94-97); Blood O2 Saturation 99.5 % (92-98.5)
[2018-05-27] MEDS: IPRATROPIUM BROM 0.5MG/2.5ML NEB SCH ×4 (03:10→19:33)
[2018-05-27] MEDS: ALBUTEROL 2.5 MG/3 ML NEB SOL NEB SCH ×4 (03:10→19:33)
[2018-05-27 04:17] VITALS: BMI 59.3
[2018-05-27 06:21] LABS: Absolute Monocytes 0.5 K/uL (0.1-1.3); Absolute Neutrophil 7.5 K/uL (1.8-8.0); Basophils % 0.2 % (0-1.3); Hematocrit 41.7 % (39.6-49.0); Lymphocytes % 10.7 % (15.3-44.8); MCH 30.8 pg (27.0-35.0); MCV 94.8 fL (80-100); MPV 8.6 fL (7.6-11.3); Monocytes % 5.3 % (3.3-12.3)
[2018-05-27 06:48] LABS: ALT/SGPT 36 U/L (12-78); AST/SGOT 17 U/L (15-37); Alkaline Phosphatase 108 U/L (45-117); BUN Blood Urea Nitrogen 21 mg/dL (7-18); Bicarbonate 34 mmol/L (21-32); Glucose Level 153 mg/dL (74-106); Sodium Level 140 mmol/L (136-145)
[2018-05-27 06:49] LABS: Albumin 3.4 g/dL (3.4-5.0); Bilirubin Total 0.3 mg/dL (0.2-1.0); HDL Cholesterol 35 mg/dL (40-60); LDL Cholesterol, Calculated 90 (<130); Magnesium 2.5 mg/dL (1.8-2.4); Phosphorus 3.5 mg/dL (2.5-4.9); Protein, Total 7.5 g/dL (6.4-8.2)
[2018-05-27 07:55] LABS: Arterial Blood Carboxyhemoglob 1.4 % (0-1.5); Blood Gas Oxyhemoglobin 82.7 % (94-97); Blood O2 Saturation 84.4 % (92-98.5)
[2018-05-27] MEDS: ENOXAPARIN 40 MG/0.4 ML SQ SCH (08:35)
[2018-05-27 11:58] LABS: Barbiturates NEGATIVE (NEGATIVE); Benzodiazepines NEGATIVE (NEGATIVE); Cocaine NEGATIVE (NEGATIVE); METHAMPHETAM NEGATIVE (NEGATIVE); Methadone POSITIVE (NEGATIVE); Opiates NEGATIVE (NEGATIVE); Phencyclidine NEGATIVE (NEGATIVE); THC Cannibis NEGATIVE (NEGATIVE)
--- NOTE | 2018-05-27 12:44 | P.CNS ---
Date of Consult: 05/27/18 Reason for Consult: Respiratory failure Chief Complaint: SOB History of Present Illness: Patient is 48 years of age admitted with hypoxic hypercapnic respiratory failure shortness of breath patient has a history off of presumed sleep apnea refuse CPAP refuse intubation currently he is alert responsive cooperative on a BiPAP is CO2 narcosis is worse when he does not have any other medical history Allergies naloxone [From Narcan] Allergy (Severe, Verified 05/27/18 08:55) Anaphylaxis - Past Medical/Surgical History Diabetic: No - Social History Smoking Status: Current every day smoker Alcohol use: No CD- Drugs: Yes Caffeine use: No Place of Residence: Home Review of Systems is unable to be obtained Physical Examination Temp Pulse Resp BP Pulse Ox 97.9 F 79 25 H 112/47 L 99 05/27/18 03:30 05/27/18 12:00 05/27/18 12:00 05/27/18 12:00 05/27/18 12:00 General: Alert, Cooperative Neck: Supple Respiratory: Clear to auscultation bilaterally, Diminished Cardiovascular: No edema, Normal S1 S2 Gastrointestinal: Normal bowel sounds, Soft and benign - Problems (1) Acute respiratory failure Current Visit: Yes Status: Acute Plan: Patient is 48 years of age admitted with hypoxic hypercapnic respiratory failure he has refused intubation does not use the CPAP at home labs reviewed unremarkable thyroid function tests is normal probably has obesity hyperventilation syndrome or severe sleep apnea patient also smokes may have underlying obstructive airways disease this is hypercapnia as worse I have adjusted the settings titrate sat to 90% repeat ABGs in call chest x-ray is underpenetrated 2D echo with Doppler Qualifiers: Respiratory failure complication: hypoxia and hypercapnia Qualified Code(s) : J96.01 - Acute respiratory failure with hypoxia; J96.02 - Acute respiratory failure with hypercapnia
--- NOTE | 2018-05-27 13:09 | P.PN ---
Subjective Date of Service: 05/27/18 Chief Complaint: SOB Patient seen and examined at bedside with RN. Chart reviewed. Case discussed with pulmonology. Currently patient has worsening of his hypercapnia. Unable to stay up. However refuses intubation. Is alert and oriented x3. No complaints to offer overnight. This morning complained of having some headaches. Review of Systems 10-point ROS is otherwise unremarkable Physical Examination - Vital Signs Temperature: 97.9 F Blood Pressure: 112/47 Pulse: 79 Respirations: 25 Pulse Ox (%): 99 - Physical Exam General: Alert, Oriented x2, Mild distress, Obese HEENT: Atraumatic, PERRLA, EOMI Neck: Supple, JVD not distended Respiratory: Diminished, Expiratory wheezes, Inspiratory wheezes Cardiovascular: Regular rate/rhythm, Normal S1 S2 Gastrointestinal: Normal bowel sounds, No tenderness Musculoskeletal: No tenderness Integumentary: No rashes Neurological: Normal speech, Normal tone, Normal affect Lymphatics: No axilla or inguinal lymphadenopathy - Studies Microbiology Data (last 24 hrs): 05/26/18 07:34 Nasopharnyx Influenza Type A Antigen Screen - Final 05/26/18 07:34 Nasopharnyx Influenza Type B Antigen Screen - Final Medications List Reviewed: Yes Assessment And Plan - Current Problems (Diagnosis) (1) Acute respiratory failure Current Visit: Yes Status: Acute Plan: Acute Hypoxic hypercapnic RF due to noncompliance with CPAP. -Pt with h.o KEITH but cannot afford CPAP machine thus has not been using it. -On BIPAP now. ABG with Hypercapnic RF. -continue on BiPAP at this time. Patient refuses intubate -Pulmonology consulted. Qualifiers: Respiratory failure complication: hypoxia and hypercapnia Qualified Code(s) : J96.01 - Acute respiratory failure with hypoxia; J96.02 - Acute respiratory failure with hypercapnia (2) KEITH (obstructive sleep apnea) Current Visit: Yes Status: Chronic Plan: H/o KEITH but does not use CPAP at home (3) Obesity Current Visit: Yes Status: Chronic Qualifiers: Obesity type: due to excess calories Obesity classification: adult class 3 (BMI >= 40) Serious obesity comorbidity presence: with serious comorbidity Body mass index: BMI 45.0-49.9 Qualified Code(s): E66.01 - Morbid (severe) obesity due to excess calories; Z68.42 - Body mass index (BMI) 45.0-49.9, adult (4) Anxiety Current Visit: Yes Status: Chronic Discharge Plan: Home Plan to discharge in: Greater than 2 days - Code Status/Comfort Care Code Status Assessed: Yes Critical Care: Yes
--- NOTE | 2018-05-27 13:42 | RAD REPORT ---
EXAM DESCRIPTION: RAD - Chest Single View - 05/27/2018 1:36 pm CLINICAL HISTORY: sob Chest pain. COMPARISON: Chest Single View dated 05/26/2018; Chest Single View dated 02/24/2018; Chest Single View dated 11/03/2016 FINDINGS: Portable technique limits examination quality. Lungs appear mildly underinflated with subsegmental atelectasis in both lung bases suspected. No foca l infiltrate detected. Heart is mildly enlarged in size. No displaced fractures.
[2018-05-27 14:03] LABS: Arterial Blood Carboxyhemoglob 1.5 % (0-1.5); Blood Gas Oxyhemoglobin 86.2 % (94-97); Blood O2 Saturation 88.1 % (92-98.5)
[2018-05-27] MEDS: ACETAMINOPHEN 500 MG TAB PO PRN (17:15)
--- NOTE | 2018-05-27 17:30 | ECHO ---
HEIGHT: 5 ft 11 in WEIGHT: 425 lb 0 oz DATE OF STUDY: 05/27/[address]: Emile Faust MD 2-DIMENSIONAL: YES M.MODE: YES DOPPLER: YES COLOR FLOW: YES TDS: PORTABLE: DEFINITY: BUBBLE STUDY: DIAGNOSIS: RESPIRATORY FAILURE CARDIAC HISTORY: CATHERIZATION: NO SURGERY: NO PROSTHETIC VALVE: NO PACEMAKER: NO MEASUREMENTS (cm) DIASTOLIC (NORMALS) SYSTOLIC (NORMALS) IVSd 1.4 (0.6-1.2) LA Diam 4.6 (1.9-4.0) LVEF 65% LVIDd 5.4 (3.5-5.7) LVIDs 3.4 (2.0-3.5) %FS 36% LVPWd 1.2 (0.6-1.2) Ao Diam 3.0 (2.0-3.7) 2 DIMENSIONAL ASSESSMENT: RIGHT ATRIUM: NORMAL LEFT ATRIUM: DILATED RIGHT VENTRICLE: NORMAL LEFT VENTRICLE: LEFT VENTRICULAR HYPERTROPHY TRICUSPID VALVE: NORMAL MITRAL VALVE: NORMAL PULMONIC VALVE: NORMAL AORTIC VALVE: NORMAL PERICARDIAL EFFUSION: NONE AORTIC ROOT: NORMAL LEFT VENTRICULAR WALL MOTION: NORMAL DOPPLER/COLOR FLOW: MILD TRICUSPID REGURGITATION. MILD PULMONARY HYPERTENSION. ESTIMATED RIGHT VENTRICULAR SYSTOLIC PRESSURE 39 mmHg. COMMENTS: NORMAL LEFT VENTRICULAR EJECTION FRACTION. LEFT VENTRICULAR HYPERTROPHY. DILATED LEFT ATRIUM. MILD TRICUSPID REGURGITATION. MILD PULMONARY HYPERTENSION. TECHNOLOGIST: MELLO KOO
[2018-05-28] MEDS: ACETAMINOPHEN 500 MG TAB PO PRN ×2 (01:56→15:32)
[2018-05-28] MEDS: ALBUTEROL 2.5 MG/3 ML NEB SOL NEB SCH ×2 (02:11→08:30)
[2018-05-28] MEDS: IPRATROPIUM BROM 0.5MG/2.5ML NEB SCH ×2 (02:11→08:30)
[2018-05-28 06:13] LABS: Absolute Lymphocytes (CBC) 1.9 K/uL (0.7-4.9); Absolute Monocytes 0.8 K/uL (0.1-1.3); Basophils % 0.7 % (0-1.3); Eosinophils % 0.4 % (0-4.4); Lymphocytes % 18.9 % (15.3-44.8); MCV 93.5 fL (80-100); MPV 8.7 fL (7.6-11.3); RBC Red Blood Cell Count 4.17 M/uL (4.33-5.43)
[2018-05-28 06:33] LABS: ALT/SGPT 31 U/L (12-78); AST/SGOT 17 U/L (15-37); Albumin 3.3 g/dL (3.4-5.0); Alkaline Phosphatase 92 U/L (45-117); BUN Blood Urea Nitrogen 19 mg/dL (7-18); Bicarbonate 36 mmol/L (21-32); Bilirubin Total 0.4 mg/dL (0.2-1.0); Glucose Level 92 mg/dL (74-106); Magnesium 2.1 mg/dL (1.8-2.4); Phosphorus 1.6 mg/dL (2.5-4.9); Potassium 4.4 mmol/L (3.5-5.1); Protein, Total 7.1 g/dL (6.4-8.2); Sodium Level 140 mmol/L (136-145)
[2018-05-28] MEDS ORDERED: SODIUM PHOSPHATE 20 MM in NA CHLORIDE 0.9% 250 ML IV ONE (07:30)
[2018-05-28] MEDS: ENOXAPARIN 40 MG/0.4 ML SQ SCH (08:40)
--- NOTE | 2018-05-28 11:21 | P.PN ---
Subjective Date of Service: 05/28/18 Chief Complaint: Hypercapnic respiratory failure Subjective: Improving (Patient is doing well condition stable he probably has underlying severe obstructive sleep apnea or obesity hyperventilation syndrome patient is agreeable to have a sleep study done. Tolerating BiPAP) Review of Systems is unable to be obtained Physical Examination - Vital Signs Temperature: 97.8 F Blood Pressure: 145/71 Pulse: 66 Respirations: 20 Pulse Ox (%): 98 - Physical Exam General: Alert, Cooperative Respiratory: Clear to auscultation bilaterally, Diminished Cardiovascular: Edema (Mild edema) - Studies Medications List Reviewed: Yes Assessment & Plan - Problems (Diagnosis) (1) Acute respiratory failure Onset Date: 05/27/18 Current Visit: Yes Status: Acute Plan: Patient is 48 years of age with the I suspect chronic hypoxic hypercapnic respiratory failure probably underlying due to obstructive sleep apnea or obesity hyperventilation syndrome patient will need an urgent outpatient sleep study and I have requested from the hospital for the patient to be scheduled he will benefit from a BiPAP right now plan is to titrate sat to 90% with nasal cannula oxygen to see if he qualifies for home oxygen the have to sleep in an upright position until he has a BiPAP machine Qualifiers: Respiratory failure complication: hypoxia and hypercapnia Qualified Code(s) : J96.01 - Acute respiratory failure with hypoxia; J96.02 - Acute respiratory failure with hypercapnia
[2018-05-28] MEDS ORDERED: ALBUTEROL 2.5 MG/3 ML NEB SOL NEB PRN (11:22)
[2018-05-28 13:54] LABS: Arterial Blood Carboxyhemoglob 1.9 % (0-1.5); Blood Gas Oxyhemoglobin 88.4 % (94-97); Blood O2 Saturation 90.7 % (92-98.5)
--- NOTE | 2018-05-28 14:47 | P.PN ---
Subjective Date of Service: 05/28/18 Chief Complaint: Hypercapnic respiratory failure Patient seen and examined at bedside with RN. Chart reviewed. Case discussed with pulmonology. Doing well overall. ABG with Improvement this AM. Pt educated on the use of Methadone. Transfer to the floor today Review of Systems 10-point ROS is otherwise unremarkable Physical Examination - Vital Signs Temperature: 97.8 F Blood Pressure: 148/78 Pulse: 76 Respirations: 14 Pulse Ox (%): 96 - Physical Exam General: Alert, In no apparent distress, Oriented x3, Obese HEENT: Atraumatic, PERRLA, EOMI Neck: Supple, JVD not distended Respiratory: Normal air movement, Expiratory wheezes, Inspiratory wheezes Cardiovascular: Regular rate/rhythm, Normal S1 S2 Gastrointestinal: Normal bowel sounds, No tenderness Musculoskeletal: No tenderness Integumentary: No rashes Neurological: Normal speech, Normal tone, Normal affect Lymphatics: No axilla or inguinal lymphadenopathy - Studies Medications List Reviewed: Yes Assessment And Plan - Current Problems (Diagnosis) (1) Acute respiratory failure Onset Date: 05/27/18 Current Visit: Yes Status: Acute Plan: Acute Hypoxic hypercapnic RF due to noncompliance with CPAP vs narcotic use -Pt with h.o KEITH but cannot afford CPAP machine thus has not been using it. -take Methadone at home. may need to readjust the dose at discharge -On NC now. ABG with Improvement today -Pulmonology consulted. Appreciate Reccs Qualifiers: Respiratory failure complication: hypoxia and hypercapnia Qualified Code(s) : J96.01 - Acute respiratory failure with hypoxia; J96.02 - Acute respiratory failure with hypercapnia (2) KEITH (obstructive sleep apnea) Onset Date: 05/27/18 Current Visit: Yes Status: Chronic Plan: H/o KEITH but does not use CPAP at home -Will setup for outpt sleep study at discharge (3) Obesity Onset Date: 05/27/18 Current Visit: Yes Status: Chronic Qualifiers: Obesity type: due to excess calories Obesity classification: adult class 3 (BMI >= 40) Serious obesity comorbidity presence: with serious comorbidity Body mass index: BMI 45.0-49.9 Qualified Code(s): E66.01 - Morbid (severe) obesity due to excess calories; Z68.42 - Body mass index (BMI) 45.0-49.9, adult (4) Anxiety Onset Date: 05/27/18 Current Visit: Yes Status: Chronic (5) Narcotic drug use Current Visit: Yes Status: Acute Plan: OPn methadone. On hold now due to risk for Respiratory depression - Plan Transfer to the floor observe for another 24 hrs for improvement. Setup Outpt sleep study. DC home once clinical improvement seen Discharge Plan: Home Plan to discharge in: 24 Hours - Code Status/Comfort Care Code Status Assessed: Yes Critical Care: No
[2018-05-29] MEDS: ACETAMINOPHEN 500 MG TAB PO PRN ×2 (04:31→12:20)
[2018-05-29 04:51] LABS: Absolute Lymphocytes (CBC) 2.1 K/uL (0.7-4.9); Absolute Monocytes 0.7 K/uL (0.1-1.3); Absolute Neutrophil 6.8 K/uL (1.8-8.0); Basophils % 0.6 % (0-1.3); Eosinophils % 0.5 % (0-4.4); Hematocrit 41.2 % (39.6-49.0); Lymphocytes % 21.6 % (15.3-44.8); MCH 30.9 pg (27.0-35.0); MCV 92.5 fL (80-100); MPV 8.5 fL (7.6-11.3); Monocytes % 7.5 % (3.3-12.3); RBC Red Blood Cell Count 4.46 M/uL (4.33-5.43)
[2018-05-29 05:20] LABS: ALT/SGPT 31 U/L (12-78); AST/SGOT 23 U/L (15-37); Albumin 3.1 g/dL (3.4-5.0); Alkaline Phosphatase 91 U/L (45-117); BUN Blood Urea Nitrogen 17 mg/dL (7-18); Bicarbonate 33 mmol/L (21-32); Bilirubin Total 0.5 mg/dL (0.2-1.0); Glucose Level 98 mg/dL (74-106); Phosphorus 1.6 mg/dL (2.5-4.9); Potassium 3.9 mmol/L (3.5-5.1); Protein, Total 6.9 g/dL (6.4-8.2); Sodium Level 141 mmol/L (136-145)
[2018-05-29] MEDS ORDERED: POTASSIUM PHOS IN 0.9 % NACL 15 MMOL/250 ML BAG IV ONE (05:51)
[2018-05-29] MEDS: ENOXAPARIN 40 MG/0.4 ML SQ SCH (09:19)
[2018-05-29 10:25] VITALS: O2SAT 98
[2018-05-29 10:44] VITALS: TEMP 98
--- NOTE | 2018-05-29 11:15 | P.DS ---
Admission Date: 05/26/18 Discharge Date: 05/29/18 Disposition: ROUTINE DISCHARGE Discharge Condition: GOOD Reason for Admission: Hypercapnic respiratory failure Consultations: Pulmonology - Problems (1) Acute respiratory failure Onset Date: 05/27/18 Current Visit: Yes Status: Acute Qualifiers: Respiratory failure complication: hypoxia and hypercapnia Qualified Code(s) : J96.01 - Acute respiratory failure with hypoxia; J96.02 - Acute respiratory failure with hypercapnia (2) KEITH (obstructive sleep apnea) Onset Date: 05/27/18 Current Visit: Yes Status: Chronic (3) Obesity Onset Date: 05/27/18 Current Visit: Yes Status: Chronic Qualifiers: Obesity type: due to excess calories Obesity classification: adult class 3 (BMI >= 40) Serious obesity comorbidity presence: with serious comorbidity Body mass index: BMI 45.0-49.9 Qualified Code(s): E66.01 - Morbid (severe) obesity due to excess calories; Z68.42 - Body mass index (BMI) 45.0-49.9, adult (4) Anxiety Onset Date: 05/27/18 Current Visit: Yes Status: Chronic (5) Narcotic drug use Current Visit: Yes Status: Acute Brief History of Present Illness: 48 y/o With H.o Obesity and KEITH presented to the ED with C/o SOB and tiredness that started for past couple of days. pt noted this AM his Oxygen was < 88% and thus decided to come to the ER. Pt states he has not been using his CPAP due to Not being able to afford it. Denied having cough or congestion. Has not been seen by PCP recently. Pt denied recent sick exposure, fever or chills. No other associated Symptoms. In the ER pt was found to be in Acute Respiratory failure with Elevated CO2 and thus was referred for admission. Hospital Course: Overall during the hospital stay patient remained stable Patient was initially admitted to the hospital for acute respiratory failure most likely secondary to hypercapnia secondary to noncompliance with CPAP versus narcotic abuse. Patient does take methadone 100 mg at all. When he presented to the ED he was minimally arousable and was immediately placed on BiPAP as he refused intubation initially. BiPAP was continued for next 24-48 hr. Initial there was no improvement in his status however once patient became alert and awake as he did improve on his BiPAP overnight. Patient then was weaned off to nasal cannula and eventually to room air. Patient was advised to get a sleep study done as outpatient to get a CPAP machine however he stated that he cannot afford a CPAP machine and would try to go to sleep study as soon as he can. Patient was also advised to stop taking the methadone and 120 mg dose. Patient was asked to follow up with his primary care provider who will be readjusting his methadone on David patient was asked to decrease the dose down to 100 mg as it might be causing him to have respiratory failure. Patient stated that he understands the risks and benefit and would like to continue on 120 and will talk to his primary care doctor regarding it. After having a conversation about diet exercise weight loss as well patient then was discharged home under stable condition was asked to follow up with pulmonology in about station will be addressing his CPAP evaluation and methadone reduction dosage with his primary care doctor and his director industrial. No further complications noted while here in the hospital. Patient then was discharged home under stable condition Vital Signs/Physical Exam: Temp Pulse Resp BP Pulse Ox 98 F 53 20 192/80 H 94 05/29/18 08:00 05/29/18 08:00 05/29/18 08:00 05/29/18 08:00 05/29/18 08:00 General: Alert, In no apparent distress, Obese HEENT: Atraumatic, PERRLA, EOMI Neck: Supple, JVD not distended Respiratory: Clear to auscultation bilaterally, Normal air movement Cardiovascular: Regular rate/rhythm, Normal S1 S2 Gastrointestinal: Normal bowel sounds, No tenderness Musculoskeletal: No tenderness Integumentary: No rashes Neurological: Normal speech, Normal tone, Normal affect Lymphatics: No axilla or inguinal lymphadenopathy Laboratory Data at Discharge: WBC 9.7 K/uL (4.3-10.9) 05/29/18 04:16 Hgb 13.8 g/dL (13.6-17.9) 05/29/18 04:16 Hct 41.2 % (39.6-49.0) 05/29/18 04:16 Plt Count 209 K/uL (152-406) 05/29/18 04:16 PT 12.0 SECONDS (9.5-12.5) 05/26/18 07:30 INR 1.02 05/26/18 07:30 Sodium 141 mmol/L (136-145) 05/29/18 04:16 Potassium 3.9 mmol/L (3.5-5.1) 05/29/18 04:16 BUN 17 mg/dL (7-18) 05/29/18 04:16 Creatinine 0.70 mg/dL (0.55-1.3) 05/29/18 04:16 Glucose 98 mg/dL (74-106) 05/29/18 04:16 Phosphorus 1.6 mg/dL (2.5-4.9) L 05/29/18 04:16 Magnesium 2.0 mg/dL (1.8-2.4) 05/29/18 04:16 Total Bilirubin 0.5 mg/dL (0.2-1.0) 05/29/18 04:16 AST 23 U/L (15-37) 05/29/18 04:16 ALT 31 U/L (12-78) 05/29/18 04:16 Alkaline Phosphatase 91 U/L (45-117) 05/29/18 04:16 Triglycerides 181 mg/dL (<150) H 05/27/18 05:50 Cholesterol 161 mg/dL (<200) 05/27/18 05:50 HDL Cholesterol 35 mg/dL (40-60) L 05/27/18 05:50 Cholesterol/HDL Ratio 4.60 05/27/18 05:50 Patient Discharge Instructions: Please f.u with PCP and Dr Lemon. You will need to have your methadone dose readjusted to lower dose as it is causing your respiratory failure. Diet: ADA Activity: Ad wlifredo Followup: Emile Faust MD [ACTIVE - CAN ADMIT] - 1 Week
[2018-05-29 11:16] VITALS: BP 166/86
== END 2018-05-29 12:32 | disposition home or self-care (01) | DRG 189 ==
LOC: ER 06:47 → OBSVTOIN 10:08 → ERHOLD 10:08 → 3RD-ICU 05-27 03:44 → 2ND 05-28 14:40
PROVIDERS: ADMIT Family Medicine; ATTEND Family Medicine
PROC: 5A09457 Assistance with Respiratory Ventilation, 24-96 Consecutive Hours, Continuous Positive Airway Pressure (ICD-10-PCS; principal; 2018-05-26)
DX: J96.01 Acute respiratory failure with hypoxia (principal); Z68.42 Body mass index [BMI] 45.0-49.9, adult; J96.02 Acute respiratory failure with hypercapnia; G47.33 Obstructive sleep apnea (adult) (pediatric); E66.01 Morbid (severe) obesity due to excess calories; F41.9 Anxiety disorder, unspecified; Z91.19 Patient's noncompliance with other medical treatment and regimen; F17.210 Nicotine dependence, cigarettes, uncomplicated; F11.90 Opioid use, unspecified, uncomplicated
CPT/HCPCS: 36415; 71045; 80048; 80053; 80061; 80076; 80307; 81003; 82805; 83735; 83880; 84100; 84443; 84484; 85025; 85610; 87040; 87205; 87804; 93005; 93306; 94640; 94660; 94760; 99285; J1650; J2405; J7512

== ENCOUNTER 2018-06-12 08:37 | Emergency (ER) | payer OTHER ==
[2018-06-12 09:30] LABS: Absolute Lymphocytes (CBC) 1.9 K/uL (0.7-4.9); Absolute Monocytes 0.4 K/uL (0.1-1.3); Absolute Neutrophil 6.1 K/uL (1.8-8.0); Basophils % 0.6 % (0-1.3); Hematocrit 40.8 % (39.6-49.0); Lymphocytes % 21.7 % (15.3-44.8); MCH 30.8 pg (27.0-35.0); MCV 91.8 fL (80-100); MPV 8.4 fL (7.6-11.3); Protime INR 1.05; RBC Red Blood Cell Count 4.45 M/uL (4.33-5.43)
[2018-06-12 09:48] LABS: ALT/SGPT 39 U/L (12-78); AST/SGOT 16 U/L (15-37); Albumin 3.4 g/dL (3.4-5.0); Alkaline Phosphatase 97 U/L (45-117); BUN Blood Urea Nitrogen 17 mg/dL (7-18); Bicarbonate 31 mmol/L (21-32); Bilirubin Direct < 0.1 mg/dL (0-0.2); Bilirubin Total 0.3 mg/dL (0.2-1.0); Glucose Level 128 mg/dL (74-106); Magnesium 2.2 mg/dL (1.8-2.4); NT PRO-BNP 77 pg/mL (<125); Potassium 4.1 mmol/L (3.5-5.1); Protein, Total 7.4 g/dL (6.4-8.2); Sodium Level 140 mmol/L (136-145); Troponin (Emerg Dept Use Only) < 0.02 ng/mL (0.0-0.045)
--- NOTE | 2018-06-12 10:45 | EDPHYS ---
Physician Documentation [facility] Name: Ihsan Montoya Age: 48 yrs Sex: Male : 1970 Arrival Date: 06/12/2018 Time: 08:41 Bed 14 Private MD: None, None ED Physician Hernando Echeverria HPI: 06/12 09:10 This 48 yrs old Male presents to ER via Ambulatory with complaints of Anxiety.cp 09:10 The patient has shortness of breath occurred after patient awoke from sleep. cp 09:10 Associated signs and symptoms: Pertinent negatives: chest pain, productive cough, cp diaphoresis, dizziness, fever, vomiting. Patient reports he felt anxious after awakening from sleep in car. Reports history of sleep apnea but awaiting sleep study and CPAP machine. Historical: - Allergies: 08:56 Narcan; "body fits"; hb - Home Meds: 08:56 Methadone 80 mg Oral once daily [Active]; hb - PMHx: 08:56 Anxiety; drug abuse; EDEMA; Obesity; Panic Attacks; hb - PSHx: 08:56 None; hb - Immunization history:: Adult Immunizations up to date. - Social history:: Smoking status: Patient uses tobacco products, smokes one-half pack cigarettes per day. - Ebola Screening: : No symptoms or risks identified at this time. ROS: 09:15 Constitutional: Negative for body aches, chills, fever, poor PO intake. cp 09:15 Eyes: Negative for injury, pain, redness, and discharge. cp 09:15 ENT: Negative for drainage from ear(s), ear pain, sore throat, difficulty swallowing, difficulty handling secretions. 09:15 Cardiovascular: Positive for edema, Negative for chest pain, palpitations. 09:15 Respiratory: Positive for shortness of breath, Negative for cough, wheezing. 09:15 Abdomen/GI: Negative for abdominal pain, nausea, vomiting, and diarrhea. 09:15 Back: Negative for pain at rest, pain with movement, radiated pain. 09:15 Neuro: Negative for altered mental status, headache, weakness. 09:15 Psych: Positive for anxiety. 09:15 All other systems are negative. Exam: 09:22 Constitutional: The patient appears in no acute distress, alert, awake, cp non-diaphoretic, non-toxic, well developed, well nourished, obese. 09:22 Head/Face: Normocephalic, atraumatic. Eyes: Pupils equal round and reactive to light, cp extra-ocular motions intact. Lids and lashes normal. Conjunctiva and sclera are non-icteric and not injected. Cornea within normal limits. Periorbital areas with no swelling, redness, or edema. ENT: Nares patent. No nasal discharge, no septal abnormalities noted. Tympanic membranes are normal and external auditory canals are clear. Oropharynx with no redness, swelling, or masses, exudates, or evidence of obstruction, uvula midline. Mucous membranes moist. Chest/axilla: Normal chest wall appearance and motion. Nontender with no deformity. No lesions are appreciated. 09:22 Cardiovascular: Rate: normal, Rhythm: regular, Edema: ankle edema, that is moderate, JVD: is not appreciated. 09:22 Respiratory: the patient does not display signs of respiratory distress, Respirations: normal, no use of accessory muscles, no retractions, no splinting, no tachypnea, labored breathing, is not present, Breath sounds: are clear throughout, no decreased breath sounds, no stridor, no wheezing. 09:22 Abdomen/GI: Inspection: obese Bowel sounds: active, all quadrants, Palpation: abdomen is soft and non-tender, in all quadrants, rebound tenderness, is not appreciated, voluntary guarding, is not appreciated, involuntary guarding, is not appreciated. 09:22 Back: pain, is absent, ROM is normal. 09:22 Skin: cellulitis, is not appreciated, no rash present. 09:22 Neuro: Orientation: to person, place \\T\\ time. Mentation: is normal, Cerebellar function: is grossly normal, Motor: is normal, Sensation: is normal. Vital Signs: 08:54 BP 155 / 93; Pulse 78; Resp 16; Temp 98; Pulse Ox 94% on R/A; Pain 0/10; hb 09:53 BP 157 / 98; Pulse 76; Resp 20; Pulse Ox 97% on R/A; rb1 10:50 BP 166 / 65; Pulse 81; Resp 19; Pulse Ox 96% on R/A; rb1 MDM: 08:50 Patient medically screened. cp 09:30 Differential diagnosis: Anxiety Reaction CHF exacerbation, Chronic Obstructive cp Pulmonary Disease Myocardial Infarction pneumonia, pulmonary edema, Pulmonary Embolism Unstable Angina. 10:30 Data reviewed: vital signs, nurses notes, lab test result(s), EKG, radiologic studies, cp plain films. 10:30 Test interpretation: by ED physician or midlevel provider: plain radiologic studies. cp 10:40 Response to treatment: the patient's symptoms have markedly improved after treatment, cp and as a result, I will discharge patient. 06/12 09:05 Order name: Basic Metabolic Panel cp 06/12 09:05 Order name: CBC with Diff cp 06/12 09:05 Order name: LFT's cp 06/12 09:05 Order name: Magnesium cp 06/12 09:05 Order name: NT PRO-BNP cp 06/12 09:05 Order name: PT-INR cp 06/12 09:05 Order name: Troponin (emerg Dept Use Only) cp 06/12 09:30 Order name: CBC with Automated Diff; Complete Time: 09:56 EDMS 06/12 09:31 Order name: Protime (+INR); Complete Time: 09:56 EDMS 06/12 09:48 Order name: Basic Metabolic Panel; Complete Time: 09:56 EDMS 06/12 09:57 Interpretation: Normal except: GLUC 128; GFR 80. cp 06/12 09:48 Order name: Liver (Hepatic) Function; Complete Time: 09:56 EDMS 06/12 10:29 Interpretation: Normal except: GLOB 4.0; A/G 0.9. cp 06/12 09:48 Order name: Troponin (Emerg Dept Use Only); Complete Time: 09:56 EDMS 06/12 09:48 Order name: NT PRO-BNP; Complete Time: 09:56 EDMS 06/12 10:29 Interpretation: Within normal limits: NT PRO-BNP 77. cp 06/12 09:48 Order name: Magnesium; Complete Time: 09:56 EDMS 06/12 09:05 Order name: XRAY Chest (1 view) cp 06/12 09:05 Order name: EKG; Complete Time: 09:06 06/12 09:05 Order name: Cardiac monitoring; Complete Time: 09:28 06/12 09:05 Order name: EKG - Nurse/Tech; Complete Time: 09:28 cp 06/12 09:05 Order name: IV Saline Lock; Complete Time: 09:28 06/12 09:05 Order name: Labs collected and sent; Complete Time: 09:29 cp 06/12 09:05 Order name: O2 Per Protocol; Complete Time: :29 cp 06/12 09:05 Order name: O2 Sat Monitoring; Complete Time: :29 cp 06/12 10:59 Order name: RAD ANDREEA Administered Medications: No medications were administered Disposition: 06/12/18 10:43 Discharged to Home. Impression: Edema, unspecified, Elevated blood-pressure reading, without diagnosis of hypertension. - Condition is Stable. - Discharge Instructions: Edema, How to Take Your Blood Pressure, [id number], DASH Eating Plan, Form - Blood Pressure Record Sheet, Peripheral Edema. - Medication Reconciliation Form, Thank You Letter, Antibiotic Education, Prescription Opioid Use form. - Follow up: Private Physician; When: 2 - 3 days; Reason: Recheck today's complaints. - Problem is new. - Symptoms are resolved. Addendum: 06/14/2018 06:58 Co-signature as Attending Physician, Hernando Echeverria MD I agree with the assessment and c pablo plan of care. Signatures: Dispatcher [facility] Hernando Echeverria MD MD cha Page, Corey PA PA cp Jayk Glover, RN RN [facility] Suzanne Ellsworth RN RN Corrections: (The following items were deleted from the chart) 06/12 11:17 10:43 06/12/2018 10:43 Discharged to Home. Impression: Edema, unspecified; Elevated rb1 blood-pressure reading, without diagnosis of hypertension. Condition is Stable. Forms are Medication Reconciliation Form, Thank You Letter, Antibiotic Education, Prescription Opioid Use. Follow up: Private Physician; When: 2 - 3 days; Reason: Recheck today's complaints. Problem is new. Symptoms are resolved. cp
--- NOTE | 2018-06-12 10:45 | ER ---
Nurse's Notes [facility] Name: Ihsan Montoya Age: 48 yrs Sex: Male : 1970 Arrival Date: 06/12/2018 Time: 08:41 Bed 14 Private MD: None, None Diagnosis: Edema, unspecified;Elevated blood-pressure reading, without diagnosis of hypertension Presentation: 06/12 08:54 Presenting complaint: Patient states: "I don't feel right, I think it might be anxiety, hb I can't really put my finger on what is wrong but something is not right." Denies pain/SOB/fever. Transition of care: patient was not received from another setting of care. Onset of symptoms was June 12, 2018. Risk Assessment: Do you want to hurt yourself or someone else? Patient reports no desire to harm self or others. Initial Sepsis Screen: Does the patient meet any 2 criteria? No. Patient's initial sepsis screen is negative. Does the patient have a suspected source of infection? No. Patient's initial sepsis screen is negative. Care prior to arrival: None. 08:54 Method Of Arrival: Ambulatory hb 08:54 Acuity: STEFAN 3 hb Historical: - Allergies: 08:56 Narcan; "body fits"; hb - Home Meds: 08:56 Methadone 80 mg Oral once daily [Active]; hb - PMHx: 08:56 Anxiety; drug abuse; EDEMA; Obesity; Panic Attacks; hb - PSHx: 08:56 None; hb - Immunization history:: Adult Immunizations up to date. - Social history:: Smoking status: Patient uses tobacco products, smokes one-half pack cigarettes per day. - Ebola Screening: : No symptoms or risks identified at this time. Screenin:56 Abuse screen: Denies threats or abuse. Denies injuries from another. Nutritional hb screening: No deficits noted. Tuberculosis screening: No symptoms or risk factors identified. Fall Risk None identified. Assessment: 08:53 General: Appears in no apparent distress. comfortable, obese, Behavior is calm, rb1 cooperative, pt. reports falling asleep in his truck and feeling anxious when he woke up today. Pt. stated, "I don't have any pain, I just don't feel right. I can't put my finger on it.". Pain: Denies pain. Neuro: Level of Consciousness is awake, alert, obeys commands, Oriented to person, place, time, situation, Canine Enforcement Officer are equal bilaterally Moves all extremities. Gait is steady, Speech is normal, Facial symmetry appears normal, Pupils are PERRLA. Cardiovascular: Capillary refill < 3 seconds is brisk in bilateral fingers. Respiratory: Airway is patent Respiratory effort is even, unlabored, Respiratory pattern is regular, symmetrical, Denies shortness of breath. GI: No signs and/or symptoms were reported involving the gastrointestinal system. : No signs and/or symptoms were reported regarding the genitourinary system. Derm: Skin is pink, warm \\T\\ dry. Musculoskeletal: Range of motion: intact in all extremities. 09:50 Reassessment: Patient appears in no apparent distress at this time. Patient and/or rb1 family updated on plan of care and expected duration. Pain level reassessed. Patient is alert, oriented x 3, equal unlabored respirations, skin warm/dry/pink. Patient denies pain at this time. 10:49 Reassessment: Patient appears in no apparent distress at this time. No changes from rb1 previously documented assessment. Pt. is playing games on his phone. Vital Signs: 08:54 BP 155 / 93; Pulse 78; Resp 16; Temp 98; Pulse Ox 94% on R/A; Pain 0/10; hb 09:53 BP 157 / 98; Pulse 76; Resp 20; Pulse Ox 97% on R/A; rb1 10:50 BP 166 / 65; Pulse 81; Resp 19; Pulse Ox 96% on R/A; rb1 ED Course: 08:41 Patient arrived in ED. sb2 08:42 None, None is Private Physician. sb2 08:49 Hernando Olvera PA is PHCP. cp 08:49 Hernando Echeverria MD is Attending Physician. cp 08:55 Triage completed. hb 08:56 Arm band placed on right wrist. hb 08:56 Patient has correct armband on for positive identification. Bed in low position. Call hb light in reach. Side rails up X 1. 09:07 Jaky Glover, GENNA is Primary Nurse. rb1 09:20 Inserted saline lock: 22 gauge in right antecubital area, using aseptic technique. rb1 Blood collected. 09:28 EKG done, by ED staff, reviewed by Hernando VARGAS. dh3 11:17 No provider procedures requiring assistance completed. IV discontinued, intact, rb1 bleeding controlled, No redness/swelling at site. Pressure dressing applied. Administered Medications: No medications were administered Outcome: 10:43 Discharge ordered by . cp 11:17 Patient left the ED. rb1 11:17 Discharged to home ambulatory. rb1 11:17 Condition: stable 11:17 Discharge instructions given to patient, Instructed on discharge instructions, follow up and referral plans. Demonstrated understanding of instructions, follow-up care, Prescriptions given X none Signatures: Hernando Olvera PA PA cp Barber, Rebecca, RN RN rb1 Suzanne Ellsworth RN RN Laura Andrade 3 Holly Wright 2
--- NOTE | 2018-06-12 10:58 | RAD REPORT ---
EXAM DESCRIPTION: RAD - Chest Single View - 06/12/2018 10:40 am CLINICAL HISTORY: lower extremity swelling Chest pain. COMPARISON: Chest Single View dated 05/27/2018; Chest Single View dated 05/26/2018; Chest Single Vie w dated 02/24/2018; Chest Single View dated 11/03/2016 FINDINGS: Portable technique limits examination quality. The lungs are grossly clear. The heart is moderately prominent size. No displaced fractures. IMPRESSION: No acute intrathoracic process suspected.
[2018-06-12 15:09] VITALS: TEMP 98
[2018-06-12 15:14] VITALS: BP 157/98; O2SAT 97
--- NOTE | 2018-06-13 06:19 | EKG ---
Test Date: 2018-06-12 Test Time: 09:24:39 Warehouse Shipping Supervisor: ELEAZAR MEASUREMENT RESULTS: Intervals: Rate: 77 WA: 170 QRSD: 98 QT: 392 QTc: 443 [place]: P: 33 WA: 170 QRS: 27 T: 35 INTERPRETIVE STATEMENTS: Normal sinus rhythm Normal ECG Compared to ECG 05/26/2018 07:07:36 Sinus tachycardia no longer present Electronically Signed On 06-13-18 06:17:12 DEMURRAGE CLERK by Erwin Saucedo
== END 2018-06-12 11:17 | disposition home or self-care (01) ==
LOC: ER 08:37
DX: R60.9 Edema, unspecified (principal); R03.0 Elevated blood-pressure reading, without diagnosis of hypertension; F17.210 Nicotine dependence, cigarettes, uncomplicated; Z79.891 Long term (current) use of opiate analgesic
CPT/HCPCS: 36415; 71045; 80048; 80076; 83735; 83880; 84484; 85025; 85610; 93005; 99284

== ENCOUNTER 2019-04-15 09:05 | Emergency (ER) | payer OTHER ==
--- NOTE | 2019-04-15 09:45 | ER ---
Nurse's Notes [facility] Name: Ihsan Montoya Age: 48 yrs Sex: Male : 1970 Arrival Date: 04/15/2019 Time: 09:06 Bed External Waiting Private MD: Diagnosis: Presentation: 04/15 09:14 Presenting complaint: Patient states: difficulty breathing and pain in chest that began aa5 30 minutes ago. Patient states, "I can't tell if this is an anxiety attack or not.". Transition of care: patient was not received from another setting of care. Onset of symptoms was April 15, 2019. Risk Assessment: Do you want to hurt yourself or someone else? Patient reports no desire to harm self or others. Initial Sepsis Screen: Does the patient meet any 2 criteria? No. Patient's initial sepsis screen is negative. Does the patient have a suspected source of infection? No. Patient's initial sepsis screen is negative. Note Patient reports that this has occurred in the past anxiety and difficulty breathing. Care prior to arrival: None. 09:14 Method Of Arrival: Ambulatory aa5 09:14 Acuity: STEFAN 3 aa5 Historical: - Allergies: 09:17 No Known Drug Allergies; aa5 - Home Meds: 09:17 Methadone 120 mg Oral once daily [Active]; aa5 - PMHx: 09:17 Anxiety; drug abuse; EDEMA; Obesity; Panic Attacks; aa5 - PSHx: 09:17 None; aa5 - Immunization history:: Adult Immunizations up to date. - Social history:: Smoking status: Patient uses tobacco products, smokes one-half pack cigarettes per day, chewing tobacco. - Ebola Screening: : Patient denies exposure to infectious person Patient denies travel to an Ebola-affected area in the 21 days before illness onset. Assessment: 09:19 Reassessment: Patient reports feeling better during triage process and states, "I aa5 already feel myself calming down. It was just my anxiety.". 09:21 Reassessment: After speaking with patient repeatedly of importance of staying for ss further evaluation, he insists that he goes home because he feels much better and "knows" it was his anxiety. Pt verbalizes understanding risks involved to leaving prior to evaluation. Vital Signs: 09:17 Pulse 66; Resp 18; Temp 97.4(TE); Pulse Ox 96% on R/A; Weight 204.12 kg; Height 5 ft. aa5 11 in. (180.34 cm); Pain 6/10; 09:20 BP 148 / 92; aa5 09:17 Body Mass Index 62.76 (204.12 kg, 180.34 cm) aa5 ED Course: 09:06 Patient arrived in ED. as 09:15 Triage completed. aa5 09:17 Arm band placed on right wrist. aa5 09:21 No provider procedures requiring assistance completed. Patient did not have IV access ss during this emergency room visit. Administered Medications: No medications were administered Outcome: :21 Eloped from waiting room, before seeing physician ss 09:44 Patient left the ED. ss Signatures: Franci Raman Audri, RN RN aa5 Eusebia Dennis RN RN ss
[2019-04-15 10:26] VITALS: TEMP 97.4; O2SAT 96
[2019-04-15 10:27] VITALS: BP 148/92
== END 2019-04-15 09:44 | disposition left against medical advice (07) ==
LOC: ER 09:05
DX: Z53.21 Procedure and treatment not carried out due to patient leaving prior to being seen by health care provider (principal)
CPT/HCPCS: 99281

== ENCOUNTER 2019-06-24 16:56 | Emergency (ER) | payer OTHER ==
--- OUTSIDE RECORDS SUMMARY | 2019-06-24 16:59 | XMS REPORT ---
:1970 [facility] Address [address] [place] [address] Dr. Vizcarra [address] [place] [id number] Care Team Providers Name Role Phone Unavailable Unavailable Unavailable Problems This patient has no known problems. Allergies, Adverse Reactions, Alerts This patient has no known allergies or adverse reactions. Medications This patient has no known medications.
--- NOTE | 2019-06-24 17:56 | RAD REPORT ---
EXAM DESCRIPTION: RAD - Chest Single View - 06/24/2019 5:36 pm CLINICAL HISTORY: Progressive shortness of breath COMPARISON: June 2018 TECHNIQUE: AP portable chest image was obtained 1733 hour . FINDINGS: Exam is limited by portable technique, shallow inspiration and very large body habitus. No peripheral consolidations seen. Central vasculature and lung markings are mildly prominent. Pattern is not substantially different from comparison. Heart size is upper normal, similar to comparison. No measurable pleural effusion and no pneumothorax. No acute bony abnormality seen. No acute aortic fin dings suspected. IMPRESSION: Limited portable study without a peripheral mass or consolidation. Minimal failure or volume overload could be masked in this setting.
[2019-06-24 18:07] LABS: Absolute Lymphocytes (CBC) 1.8 K/uL (0.7-4.9); Basophils % 0.9 % (0-1.3); Hematocrit 43.8 % (39.6-49.0); Lymphocytes % 18.8 % (15.3-44.8); MPV 8.3 fL (7.6-11.3); RBC Red Blood Cell Count 4.84 M/uL (4.33-5.43)
[2019-06-24 18:08] LABS: Protime INR 1.06
[2019-06-24 18:27] LABS: ALT/SGPT 35 U/L (12-78); AST/SGOT 24 U/L (15-37); Albumin 3.5 g/dL (3.4-5.0); Alkaline Phosphatase 107 U/L (45-117); BUN Blood Urea Nitrogen 15 mg/dL (7-18); Bicarbonate 27 mmol/L (21-32); Bilirubin Direct < 0.1 mg/dL (0-0.2); Bilirubin Total 0.3 mg/dL (0.2-1.0); Glucose Level 110 mg/dL (74-106); Magnesium 2.3 mg/dL (1.8-2.4); NT PRO-BNP 1715 pg/mL (<125); Protein, Total 8.3 g/dL (6.4-8.2); Sodium Level 140 mmol/L (136-145); Troponin (Emerg Dept Use Only) 0.19 ng/mL (0.0-0.045)
--- NOTE | 2019-06-24 19:46 | RAD REPORT ---
EXAM DESCRIPTION: CT - Chest For Pe Angio - 06/24/2019 7:25 pm CLINICAL HISTORY: SOB COMPARISON: Chest Single View dated 06/24/2019 TECHNIQUE: Dynamically enhanced 3 mm thick images of the chest were obtained during administration o f approximately 150mL Isovue 370 IV contrast. Coronal and oblique MIP reconstruction images were gene rated and reviewed. Exam utilizes a protocol to evaluate the pulmonary arterial tree. All CT scans are performed using dose optimization technique as appropriate and may include automated exposure control or mA/KV adjustment according to patient size. FINDINGS: A large saddle embolus is present extending across the main pulmonary arteries. Large embo carly fills the right upper lobe branch extending into segmental branches. The segmental branch pulmona ry embolism is present in the left upper lobe. Multiple segmental branch pulmonary emboli extend in t he posterior left lung base. Pulmonary embolic disease fills the right lower lobe and right middle lo be branches. These each extend into multiple segmental branches. Medial left base opacification is pr esent with patchy of opacification in the anterior mid left lung field. These are both areas of pulmo nary hemorrhage from embolic disease. The aorta as imaged shows no acute or suspicious finding. No pericardial thickening or effusion. No pleural effusion or pleural thickening. No mediastinal or hilar suspicious masses. No chest wall masses or abnormal axillary lymphadenopathy. IMPRESSION: Large saddle embolus is present. Large pulmonary emboli filled the right upper, right middle and right lower lobe main pulmonary arter ies with extension into the segmental branches. Left upper and left lower lobe pulmonary emboli are also present with areas of pulmonary hemorrhage i n the anterior mid left lung field in the medial left lung base.
[2019-06-24] MEDS ORDERED: HEPARIN/D5W 25,000 UNIT/500 ML BAG IV ONE (20:38)
[2019-06-24] MEDS ORDERED: HEPARIN 5000 UNIT/ML 1 ML VIAL ONE (20:38)
--- NOTE | 2019-06-24 20:44 | ER ---
Nurse's Notes [facility] Name: hIsan Montoya Age: 49 yrs Sex: Male : 1970 Arrival Date: 06/24/2019 Time: 17:02 Bed 7 Private MD: Diagnosis: Pulmonary embolism;Dyspnea Presentation: 06/24 17:03 Presenting complaint: EMS states: Pt c/ SOB, worsening throughout the day, hx of ph anxiety and sleep apnea, Spo2 89% RA on scene, improved to 99% 2L NC. Transition of care: patient was not received from another setting of care. Onset of symptoms was June 24, 2019. Risk Assessment: Do you want to hurt yourself or someone else? Patient reports no desire to harm self or others. Initial Sepsis Screen: Does the patient meet any 2 criteria? No. Patient's initial sepsis screen is negative. Does the patient have a suspected source of infection? No. Patient's initial sepsis screen is negative. Care prior to arrival: IV initiated. 20 GA, in the left antecubital area, Oxygen administered. via nasal cannula. 17:03 Method Of Arrival: EMS: [facility] ph 17:03 Acuity: STEFAN 3 ph Historical: - Allergies: 17:05 Narcan; "body fits"; ph - Home Meds: 17:05 Methadone 120 mg Oral once daily [Active]; ph - PMHx: 17:05 Anxiety; drug abuse; EDEMA; Obesity; Panic Attacks; ph - PSHx: 17:05 None; ph - Immunization history:: Adult Immunizations unknown. - Social history:: Smoking status: Patient uses tobacco products, smokes one-half pack cigarettes per day. - Ebola Screening: : No symptoms or risks identified at this time. Screenin:07 Abuse screen: Denies threats or abuse. Denies injuries from another. Nutritional ph screening: No deficits noted. Tuberculosis screening: No symptoms or risk factors identified. Fall Risk None identified. Assessment: 17:06 General: Appears in no apparent distress. uncomfortable, obese, Behavior is ph cooperative, appropriate for age, anxious, Denies fever, feeling ill. Pain: Denies pain. Neuro: Level of Consciousness is awake, alert, obeys commands, Oriented to person, place, time, situation. Cardiovascular: Reports lightheadedness, shortness of breath, Denies chest pain. Respiratory: Airway is patent Respiratory effort is even, labored, Respiratory pattern is tachypnea. GI: Abdomen is non-distended, obese, Patient currently denies abdominal pain, diarrhea, nausea, vomiting. Derm: Skin is intact, Skin is pink, warm \\T\\ dry. Musculoskeletal: Circulation, motion, and sensation intact. Range of motion: intact in all extremities. 18:00 Reassessment: Patient appears in no apparent distress at this time. Patient and/or ph family updated on plan of care and expected duration. Pain level reassessed. Patient is alert, oriented x 3, equal unlabored respirations, skin warm/dry/pink. 18:41 Reassessment: Patient appears in no apparent distress at this time. Patient and/or ph family updated on plan of care and expected duration. Pain level reassessed. Patient is alert, oriented x 3, equal unlabored respirations, skin warm/dry/pink. 19:30 General: Appears in no apparent distress. Behavior is anxious. Neuro: Level of lp1 Consciousness is awake, alert, obeys commands, Oriented to person, place, time, situation. Cardiovascular: Patient's skin is warm and dry. Rhythm is sinus rhythm. Respiratory: Reports shortness of breath at rest on exertion Respiratory effort is even, Breath sounds are diminished bilaterally. Onset: The symptoms/episode began/occurred gradually, the patient has moderate shortness of breath. GI: Abdomen is obese. : No signs and/or symptoms were reported regarding the genitourinary system. EENT: No signs and/or symptoms were reported regarding the EENT system. Derm: Skin is intact, Skin is dry, Skin is normal. Musculoskeletal: No deficits noted. 19:45 Reassessment: Patient aware of plan for transfer, Provider at bedside discussing plan 1 of care. 21:06 Reassessment: Report given to GENNA Moran at [facility] for patient transfer to [address] [address] Bed 7. 21:30 Reassessment: Patient's family at bedside. lp1 22:00 Reassessment: Patient aware of waiting for EMS for transfer, states feeling some lp1 anxiety. 22:20 Reassessment: [facility] at bedside for transfer. 1 Vital Signs: 17:04 BP 122 / 83; Pulse 92; Resp 24; Temp 97.8; Pulse Ox 90% on R/A; Weight 190.51 kg; ph Height 5 ft. 11 in. (180.34 cm); 18:00 BP 138 / 78; Pulse 91; Resp 22; Pulse Ox 96% on 2 lpm NC; ph 18:41 BP 144 / 66; Pulse 88; Resp 20; Pulse Ox 95% on 2 lpm NC; ph 20:06 BP 167 / 84; Pulse 95; Resp 22 S; Pulse Ox 95% on 2 lpm NC; jd3 20:45 Pulse 100; Resp 22; Pulse Ox 94% on 3 lpm NC; lp1 17:04 Body Mass Index 58.58 (190.51 kg, 180.34 cm) ph ED Course: 17:02 Patient arrived in ED. ph 17:04 Triage completed. ph 17:07 Arm band placed on Patient placed in an exam room, on a stretcher. ph 17:07 Patient has correct armband on for positive identification. Bed in low position. Call ph light in reach. Side rails up X 1. Pulse ox on. NIBP on. Door closed. Noise minimized. Warm blanket given. 17:12 Marvin Sotelo FNP-C is PHCP. la1 17:12 Hernando Echeverria MD is Attending Physician. la1 17:37 XRAY Chest (1 view) In Process Unspecified. EDMS 17:42 Carleen Prasad, RN is Primary Nurse. ph 18:11 Notified Nurse Practitioner and/or Physician Staffing Mgr of a critical lab result(s), D sg DImer [id number]. 19:27 CT Chest For PE Angio In Process Unspecified. EDMS 19:39 Warm blanket given. Verbal reassurance given. jd3 20:07 Verbal reassurance given. jd3 20:58 No provider procedures requiring assistance completed. lp1 22:36 Patient transferred, IV remains in place. lp1 Administered Medications: 20:45 Drug: Heparin (DVT/PE- Bolus per protocol) - HEParin 80 units/kg {Co-Signature: kaiden gao (Jose Martinez RN).} Route: IVP; Site: left antecubital; 22:38 Follow up: Response: No adverse reaction lp1 20:45 Drug: Heparin (DVT/PE Drip) 18 units/kg/hr - (HEParin 81978 units, D5W 500 ml) sima {Co-Signature: kaiden (Jose Martinez RN).} Route: IV; Rate: calculated rate; Site: left antecubital; 22:38 Follow up: IV Status: Infusion continued upon transfer lp1 Outcome: 20:43 ER care complete, transfer ordered by la1 20:58 critical lp1 20:58 Instructed on the need for transfer. 22:36 Transferred by ground EMS to [facility], Transfer form completed. lp1 X-rays sent w/ patient. 22:38 Patient left the ED. lp1 Signatures: Dispatcher [employer] EDMS Denis Welch, RN RN Brenda Schwartz RN RN lp1 Marvin Sotelo, SENIOR COURTROOM CLERK-C SENIOR COURTROOM CLERK-Cla1 Carleen Prasad RN Jose Domínguez ph D, RN RN jd3 Jose richey Corrections: (The following items were deleted from the chart) 20:58 19:30 Cardiovascular: Patient's skin is warm and dry. lp1 lp1 20:58 19:30 Respiratory: Reports shortness of breath at rest on exertion Respiratory effort lp1 is even, Breath sounds are diminished bilaterally. lp1
--- NOTE | 2019-06-24 20:44 | EDPHYS ---
Physician Documentation [facility] Name: Ihsan Montoya Age: 49 yrs Sex: Male : 1970 Arrival Date: 06/24/2019 Time: 17:02 Bed 7 Private MD: ED Physician Hernando Echeverria HPI: 06/24 17:14 This 49 yrs old Male presents to ER via EMS with complaints of Shortness Of la1 Breath. 17:14 The patient has shortness of breath with light activity, during emotionally upset, la1 while exercising, while talking, and the patient has a history of sleep apnea, obesity. Onset: The symptoms/episode began/occurred 2 month(s) ago. Duration: The symptoms are continuous, and are steadily getting worse. The patient's shortness of breath is aggravated by exertion, light activity, supine position. Associated signs and symptoms: Pertinent positives: near syncope, Pertinent negatives: chest pain, non-productive cough, diaphoresis, dizziness. Severity of symptoms: At their worst the symptoms were moderate in the emergency department the symptoms have improved. The patient has experienced similar episodes in the past. 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 Historical: - Allergies: 17:05 Narcan; "body fits"; ph - Home Meds: 17:05 Methadone 120 mg Oral once daily [Active]; ph - PMHx: 17:05 Anxiety; drug abuse; EDEMA; Obesity; Panic Attacks; ph - PSHx: 17:05 None; ph - Immunization history:: Adult Immunizations unknown. - Social history:: Smoking status: Patient uses tobacco products, smokes one-half pack cigarettes per day. - Ebola Screening: : No symptoms or risks identified at this time. ROS: 17:16 Constitutional: Negative for fever, chills, and weight loss, Eyes: Negative for injury, la1 pain, redness, and discharge, ENT: Negative for injury, pain, and discharge, Neck: Negative for injury, pain, and swelling, Cardiovascular: Negative for chest pain, palpitations + for chronic LE swelling Respiratory: + SOB Abdomen/GI: Negative for abdominal pain, nausea, vomiting, diarrhea, and constipation, : Negative for injury, bleeding, discharge, and swelling, MS/Extremity: Negative for injury and deformity, Neuro: Negative for headache, weakness, numbness, tingling, and seizure. Exam: 17:18 Constitutional: This is a well developed, well nourished patient who is awake, alert, la1 and in no acute distress. Head/Face: Normocephalic, atraumatic. Eyes: Pupils equal round and reactive to light, extra-ocular motions intact. Periorbital areas with no swelling, redness, or edema. ENT: . Mucous membranes moist. Neck: No Meningismus. Chest/axilla: Normal chest wall appearance and motion. Nontender with no deformity. No lesions are appreciated. Cardiovascular: Regular rate and rhythm with a normal S1 and S2. No gallops, murmurs, or rubs. Normal PMI, no JVD. No pulse deficits. + LE edema Respiratory: Lungs have equal breath sounds bilaterally, clear to auscultation and percussion. No rales, rhonchi or wheezes noted. mild increase in work of breathing and respiratory rate Abdomen/GI: Soft, non-tender, with normal bowel sounds. Obese Neuro: Awake and alert, GCS 15, oriented to person, place, time, and situation. Normal gait. Vital Signs: 17:04 BP 122 / 83; Pulse 92; Resp 24; Temp 97.8; Pulse Ox 90% on R/A; Weight 190.51 kg; ph Height 5 ft. 11 in. (180.34 cm); 18:00 BP 138 / 78; Pulse 91; Resp 22; Pulse Ox 96% on 2 lpm NC; ph 18:41 BP 144 / 66; Pulse 88; Resp 20; Pulse Ox 95% on 2 lpm NC; ph 20:06 BP 167 / 84; Pulse 95; Resp 22 S; Pulse Ox 95% on 2 lpm NC; jd3 20:45 Pulse 100; Resp 22; Pulse Ox 94% on 3 lpm NC; lp1 17:04 Body Mass Index 58.58 (190.51 kg, 180.34 cm) ph MDM: 17:12 Patient medically screened. la1 20:36 Differential diagnosis: CHF exacerbation, Chronic Obstructive Pulmonary Disease la1 Myocardial Infarction pneumonia, Pneumothorax pulmonary edema, Pulmonary Embolism. Data reviewed: vital signs, nurses notes, EMS record, EKG, radiologic studies, I have discussed the patient's presentation/case with the attending Emergency Department Physician; and as a result, I will admit patient. Data interpreted: Pulse oximetry: on 2L(s) per nasal canula, is 95 %. Interpretation: acceptable. Test interpretation: by ED physician or midlevel provider: ECG, plain radiologic studies. Counseling: I had a detailed discussion with the patient and/or guardian regarding: the historical points, exam findings, and any diagnostic results supporting the discharge/admit diagnosis, the presence of at least one elevated blood pressure reading (>120/80) during this emergency department visit, lab results, radiology results, the need to transfer to another facility, [facility] does not immediately have the required specialist. Physician consultation: Dr. Schaffer at [facility] ICU at 2037. 20:40 ED course: Discussed with accepting guard range the risk and benefit of giving heparin la1 to the pt since he has pulmonary hemorrhage, If they pt begins to have hemoptysis the heparin with be D/Cd. . 21:05 ED course: pt resting in stretcher, mildly tachypneic, satting 92-95% on 2L per NC. BP la1 stable, pt safe for transfer. 06/24 17:13 Order name: Basic Metabolic Panel; Complete Time: 18:31 la1 06/24 17:13 Order name: CBC with Diff; Complete Time: 18:10 la1 06/24 17:13 Order name: LFT's; Complete Time: 18:31 la1 06/24 17:13 Order name: Magnesium; Complete Time: 18:31 la1 06/24 17:13 Order name: NT PRO-BNP; Complete Time: 18:31 la1 06/24 17:13 Order name: PT-INR; Complete Time: 18:31 la1 06/24 17:13 Order name: Troponin (emerg Dept Use Only); Complete Time: 18:31 la1 06/24 17:13 Order name: XRAY Chest (1 view); Complete Time: 17:58 la1 06/24 17:13 Order name: EKG; Complete Time: 17:14 la06/24 17:13 Order name: Cardiac monitoring; Complete Time: 17:44 la1 06/24 17:13 Order name: DD; Complete Time: 18:31 1 06/24 18:31 Order name: CT Chest For PE Angio; Complete Time: 19:50 sg 06/24 17:13 Order name: EKG - Nurse/Tech; Complete Time: 18:05 1 06/24 17:13 Order name: IV Saline Lock; Complete Time: 17:44 la1 06/24 17:13 Order name: Labs collected and sent; Complete Time: 18:05 1 06/24 17:13 Order name: O2 Per Protocol; Complete Time: 17:44 la1 06/24 17:13 Order name: O2 Sat Monitoring; Complete Time: 17:44 la1 Administered Medications: 20:45 Drug: Heparin (DVT/PE- Bolus per protocol) - HEParin 80 units/kg {Co-Signature: kaiden gao (Jose Martinez RN).} Route: IVP; Site: left antecubital; 22:38 Follow up: Response: No adverse reaction 1 20:45 Drug: Heparin (DVT/PE Drip) 18 units/kg/hr - (HEParin 94503 units, D5W 500 ml) lp1 {Co-Signature: kaiden (Jose Martinez RN).} Route: IV; Rate: calculated rate; Site: left antecubital; 22:38 Follow up: IV Status: Infusion continued upon transfer lp1 Disposition: 06/24/19 20:43 Transfer ordered to [facility]. Diagnosis are Pulmonary embolism, Dyspnea. - Reason for transfer: Higher level of care. - Accepting physician is Dr. Schaffer. - Condition is Stable. - Problem is new. - Symptoms are unchanged. Addendum: 06/27/2019 10:14 Co-signature as Attending Physician, Hernando Echeverria MD I agree with the assessment and c pablo plan of care. Signatures: Dispatcher [employer] Hernando Hauser MD MD cha Pena, Laura, RN RN lp1 Marvin Sotelo, WEDDING FLORIST-C WEDDING FLORIST-Cla1 Carleen Prasad RN RN Jose Martinez RN jd3 Corrections: (The following items were deleted from the chart) 06/24 22:38 20:43 06/24/2019 20:43 Transfer ordered to [facility]. Diagnosis is lp1 Pulmonary embolism; Dyspnea. Reason for transfer: Higher level of care. Accepting physician is Dr. Schaffer. Condition is Stable. Problem is new. Symptoms are unchanged. la1
[2019-06-25 01:07] VITALS: BP 167/84
[2019-06-25 01:12] VITALS: O2SAT 94
[2019-06-25 17:51] VITALS: TEMP 97.8
--- NOTE | 2019-06-25 18:49 | EKG ---
Test Date: 2019-06-24 Test Time: 17:59:07 Mds Coordinator: SWG MEASUREMENT RESULTS: Intervals: Rate: 82 WV: 170 QRSD: 94 QT: 390 QTc: 455 [place]: P: 55 WV: 170 QRS: 39 T: 57 INTERPRETIVE STATEMENTS: Normal sinus rhythm Nonspecific T wave abnormality Abnormal ECG Compared to ECG 06/12/2018 09:24:39 T-wave abnormality now present Electronically Signed On 06-25-19 18:47:15 BREAKER OILER by [place]
== END 2019-06-24 22:38 | disposition short-term general hospital (02) ==
LOC: ER 16:56
DX: R06.00 Dyspnea, unspecified (principal); I26.99 Other pulmonary embolism without acute cor pulmonale; Z88.8 Allergy status to other drugs, medicaments and biological substances
CPT/HCPCS: 96365; 93005; 85025; 80048; 36415; 83735; 85610; 85379; 80076; 84484; 83880; 71275; 71045; 99285; 96366; Q9967; J1644

== ENCOUNTER 2021-01-02 14:37 | Emergency (ER) | payer OTHER ==
--- OUTSIDE RECORDS SUMMARY | 2021-01-02 14:40 | XMS REPORT | Continuity of Care Document ---
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 00:00: Medical 00 [place] KEITH KEITH Disease Active 2018-[address] [facility] (obstructi (obstructi 2-14 Hanna kes - ve sleep ve sleep 00:00: Medica l apnea) apnea) 00 [place] Chronic Chronic Disease Active 2018-[address] [facility] narcotic narcotic 2-14 [facility] - dependence dependence 00:00: Me dical 00 [place] Allergies, Adverse Reactions, Alerts Allergy Allergy Status Severity Reaction(s) Onset Inactive Treating Comm ents Source Name Type Date Date Clinician Naloxone Drug Active Other (See 2018-[address] [facility] Allergy Comments) 2-14 [facility] - 00:00: Medical 00 [place] Family History Family Member Diagnosis Comments Start Date Stop Date Source Natural mother Stroke [facility] - [facility] Social History Social Habit Start Date Stop Date Quantity Comments Source History SDOH [facility] - Alcohol Binge Medical [place] [facility] Sex Assigned At [facility] History SDOH [facility] - Alcohol Std Drinks Medica l [place] Tobacco use and 2019-06-27 2019-06-27 Never used [facility] Hanna kes - exposure 00:00:00 00:00:00 Medical Center Alcohol intake 2019-06-27 2019-06-27 Current [facility] Ant es - 00:00:00 00:00:00 non-drinker of Medical Ce nter alcohol (finding) History SDOH 2019-06-25 2019-06-[address] [facility] - Alcohol Frequency 00:00:00 00:00:00 [facility] Center Smoking Status Start Date Stop Date Source Heavy tobacco smoker 2019-06-27 00:00:00 [facility] Medications Ordered Filled Start Stop Current Ordering Indication Dosage Frequency Signature Comments Components Source Medication Medication Date Date Medication? Clinician (SIG) Name Name methadone 2018-07 Yes 80mg QD Take [address] [facility] (METHADOSE) 2-18 tablets [facility] - 40 mg 00:00: (80 mg Medical disintegrat 00 total) by Davina ter ing tablet mouth daily. Max Daily Amount: 80 mg sertraline 2018-07 50mg QD Take [address] [facility] [address] (ZOLOFT) 50 2-18 12-17 tablet (50 L ukes - MG tablet 00:00: 23:59 mg total) Me dical 00 :00 by mouth Center nightly. Procedures This patient has no known procedures. Plan of Care Planned Activity Planned Date Details Comments Source Future Scheduled 2022-06-27 Lipid panel [facility] - Test 00:00:00 (procedure) [code = [facility] [id number]] Future Scheduled 2020-03-13 INFLUENZA VACCINE (#1) [facility] Test 00:00:00 [code = INFLUENZA Medical Ce nter VACCINE (#1)] Future Scheduled [address] [facility] - Test 00:00:00 0-64 YRS (1 of 1 - Medical C enter PPSV23) [code = PNEUMOCOCCAL VACCINE 0-64 YRS (1 of 1 - PPSV23)] Results Test Description Test Time Test Comments Results Result Comments Source BASIC METABOLIC PANEL 2019-06-29 07:15:00 Test Item Value Reference Range Interpretation Comme nts SODIUM (BEAKER) (test code 138 meq/L 136-145 = 381) POTASSIUM (BEAKER) (test 4.4 meq/L 3.5-5.1 code = 379) CHLORIDE (BEAKER) (test 105 meq/L 98-107 code = 382) CO2 (BEAKER) (test code = 27 meq/L 22-29 355) BLOOD UREA NITROGEN 14 mg/dL 7-21 (BEAKER) (test code = 354) CREATININE (BEAKER) (test 0.84 mg/dL 0.57-1.25 code = 358) GLUCOSE RANDOM (BEAKER) 95 mg/dL 70-105 (test code = 652) CALCIUM (BEAKER) (test code 8.4 mg/dL 8.4-10.2 = 697) EGFR (BEAKER) (test code = 98 mL/min/1.73 sq m ESTIMATED GFR IS NOT 1092) ACCURATE CRE ATININE CLEARANCE IN PA EDICTING GLOMERULAR FILT RATION RATE. ESTIMATED GFR IS NOT APPLICABLE FOR DIALYSIS PATIENTS. CBC (HEMOGRAM ONLY)2019-06-29 06:32:00 Test Item Value Reference Range Interpretation Comments WHITE BLOOD CELL COUNT (BEAKER) 7.4 K/ L 3.5-10.5 (test code = 775) RED BLOOD CELL COUNT (BEAKER) 4.33 M/ L 4.63-6.08 L (test code = 761) HEMOGLOBIN (BEAKER) (test code = 12.8 GM/DL 13.7-17.5 L 410) HEMATOCRIT (BEAKER) (test code = 40.9 % 40.1-51.0 411) MEAN CORPUSCULAR VOLUME (BEAKER) 94.5 fL 79.0-92.2 H (test code = 753) MEAN CORPUSCULAR HEMOGLOBIN 29.6 pg 25.7-32.2 (BEAKER) (test code = 751) MEAN CORPUSCULAR HEMOGLOBIN CONC 31.3 GM/DL 32.3-36.5 L (BEAKER) (test code = 752) RED CELL DISTRIBUTION WIDTH 14.2 % 11.6-14.4 (BEAKER) (test code = 412) PLATELET COUNT (BEAKER) (test 180 K/CU MM 150-450 code = 756) MEAN PLATELET VOLUME (BEAKER) 9.9 fL 9.4-12.4 (test code = 754) NUCLEATED RED BLOOD CELLS 0 /100 WBC 0-0 (BEAKER) (test code = 413) CBC (HEMOGRAM ONLY)2019-06-28 06:26:00 Test Item Value Reference Range Interpretation Comments WHITE BLOOD CELL COUNT (BEAKER) 7.9 K/ L 3.5-10.5 (test code = 775) RED BLOOD CELL COUNT (BEAKER) 4.30 M/ L 4.63-6.08 L (test code = 761) HEMOGLOBIN (BEAKER) (test code = 12.6 GM/DL 13.7-17.5 L 410) HEMATOCRIT (BEAKER) (test code = 40.6 % 40.1-51.0 411) MEAN CORPUSCULAR VOLUME (BEAKER) 94.4 fL 79.0-92.2 H (test code = 753) MEAN CORPUSCULAR HEMOGLOBIN 29.3 pg 25.7-32.2 (BEAKER) (test code = 751) MEAN CORPUSCULAR HEMOGLOBIN CONC 31.0 GM/DL 32.3-36.5 L (BEAKER) (test code = 752) RED CELL DISTRIBUTION WIDTH 14.4 % 11.6-14.4 (BEAKER) (test code = 412) PLATELET COUNT (BEAKER) (test 169 K/CU MM 150-450 code = 756) MEAN PLATELET VOLUME (BEAKER) 9.6 fL 9.4-12.4 (test code = 754) NUCLEATED RED BLOOD CELLS 0 /100 WBC 0-0 (BEAKER) (test code = 413) [id number] 22:41:00 Test Item Value Reference Range Interpretation Comments PARTIAL THROMBOPLASTIN TIME 41.6 seconds 22.5-36.0 H (BEAKER) (test code = 760) [id number] 13:52:00 Test Item Value Reference Range Interpretation Comments PARTIAL THROMBOPLASTIN TIME 35.3 seconds 22.5-36.0 (BEAKER) (test code = 760) HEMOGLOBIN [id number] 08:28:00 Test Item Value Reference Range Interpretation Comments HEMOGLOBIN A1C (BEAKER) (test code = 6.4 % 4.3-6.1 H 368) [id number] 07:29:00 Test Item Value Reference Range Interpretation Comments PHOSPHORUS (BEAKER) (test code = 4.4 mg/dL 2.3-4.7 604) [id number] 07:29:00 Test Item Value Reference Range Interpretation Comments MAGNESIUM (BEAKER) (test code = 2.1 mg/dL 1.6-2.6 627) BASIC METABOLIC [id number] 07:29:00 Test Item Value Reference Range Interpretation Comments SODIUM (BEAKER) 138 meq/L 136-145 (test code = 381) POTASSIUM (BEAKER) 4.5 meq/L 3.5-5.1 (test code = 379) CHLORIDE (BEAKER) 104 meq/L 98-107 (test code = 382) CO2 (BEAKER) (test 28 meq/L 22-29 code = 355) BLOOD UREA NITROGEN 16 mg/dL 7-21 (BEAKER) (test code = 354) CREATININE (BEAKER) 0.94 mg/dL 0.57-1.25 (test code = 358) GLUCOSE RANDOM 92 mg/dL 70-105 (BEAKER) (test code = 652) CALCIUM (BEAKER) 8.7 mg/dL 8.4-10.2 (test code = 697) EGFR (BEAKER) (test 86 mL/min/1.73 ESTIMA DE GFR IS code = 1092) sq m NOT ACCURATE CREATININE CLEARANCE IN PREDICTING GLOMERULAR FILTRATION RATE . ESTIMATED GFR I S NOT APPLICABLE FOR DIALYSIS PATIEN TS. LIPID [id number] 07:29:00 Test Item Value Reference Range Interpretation Comments TRIGLYCERIDES (BEAKER) (test code = 186 mg/dL 540) CHOLESTEROL (BEAKER) (test code = 165 mg/dL 631) HDL CHOLESTEROL (BEAKER) (test code 26 mg/dL = 976) LDL CHOLESTEROL CALCULATED (BEAKER) 102 mg/dL (test code = 633) Triglyceride Reference Range: Low Risk <150 Borderline 150-199 High Risk 200-499 Very High Risk >=500Cholesterol Reference Range: Low Risk <200 Borderline 200-239 High Risk >240HDL Cholesterol Reference Range: Low Risk >=60 High Risk <40LDL Cholesterol Reference Range: Optimal <100 Near Optimal 100-129 Borderline 130-159 High 160-189 Very High >=190HEPATIC FUNCTION [id number] 07:29:00 Test Item Value Reference Range Interpretation Comments TOTAL PROTEIN (BEAKER) (test code = 7.2 gm/dL 6.0-8.3 770) ALBUMIN (BEAKER) (test code = 1145) 3.7 g/dL 3.5-5.0 BILIRUBIN TOTAL (BEAKER) (test code 0.3 mg/dL 0.2-1.2 = 377) BILIRUBIN DIRECT (BEAKER) (test 0.2 mg/dL 0.1-0.5 code = 706) ALKALINE PHOSPHATASE (BEAKER) (test 83 U/L 40-150 code = 346) AST (SGOT) (BEAKER) (test code = 17 U/L 5-34 353) ALT (SGPT) (BEAKER) (test code = 19 U/L 6-55 347) [id number] 06:48:00 Test Item Value Reference Range Interpretation Comments PARTIAL THROMBOPLASTIN TIME 40.1 seconds 22.5-36.0 H (BEAKER) (test code = 760) 6 hours after starting heparin infusion and as indicated per sliding scaleCB (HEMOGRAM ONLY)2019-06-27 06:46:00 Test Item Value Reference Range Interpretation Comments WHITE BLOOD CELL COUNT (BEAKER) 8.2 K/ L 3.5-10.5 (test code = 775) RED BLOOD CELL COUNT (BEAKER) 4.47 M/ L 4.63-6.08 L (test code = 761) HEMOGLOBIN (BEAKER) (test code = 13.0 GM/DL 13.7-17.5 L 410) HEMATOCRIT (BEAKER) (test code = 42.6 % 40.1-51.0 411) MEAN CORPUSCULAR VOLUME (BEAKER) 95.3 fL 79.0-92.2 H (test code = 753) MEAN CORPUSCULAR HEMOGLOBIN 29.1 pg 25.7-32.2 (BEAKER) (test code = 751) MEAN CORPUSCULAR HEMOGLOBIN CONC 30.5 GM/DL 32.3-36.5 L (BEAKER) (test code = 752) RED CELL DISTRIBUTION WIDTH 14.6 % 11.6-14.4 H (BEAKER) (test code = 412) PLATELET COUNT (BEAKER) (test 166 K/CU MM 150-450 code = 756) MEAN PLATELET VOLUME (BEAKER) 9.7 fL 9.4-12.4 (test code = 754) NUCLEATED RED BLOOD CELLS 0 /100 WBC 0-0 (BEAKER) (test code = 413) [id number] 00:10:00 Test Item Value Reference Range Interpretation Comments PARTIAL THROMBOPLASTIN TIME 35.6 seconds 22.5-36.0 (BEAKER) (test code = 760) [id number] 17:10:00 Test Item Value Reference Range Interpretation Comments PARTIAL THROMBOPLASTIN TIME 32.4 seconds 22.5-36.0 (BEAKER) (test code = 760) Prior to initiating heparinPLATELET [id number] 17:02:00 Test Item Value Reference Range Interpretation Comments PLATELET COUNT (BEAKER) (test 170 K/CU MM 150-450 code = 756) HEMOGLOBIN [id number] 08:48:00 Test Item Value Reference Range Interpretation Comments HEMOGLOBIN A1C (BEAKER) (test code = 6.5 % 4.3-6.1 H 368) [id number] 06:10:00 Test Item Value Reference Range Interpretation Comments PHOSPHORUS (BEAKER) (test code = 4.1 mg/dL 2.3-4.7 604) [id number] 06:10:00 Test Item Value Reference Range Interpretation Comments MAGNESIUM (BEAKER) (test code = 2.2 mg/dL 1.6-2.6 627) BASIC METABOLIC [id number] 06:10:00 Test Item Value Reference Range Interpretation Comments SODIUM (BEAKER) 138 meq/L 136-145 (test code = 381) POTASSIUM (BEAKER) 4.6 meq/L 3.5-5.1 (test code = 379) CHLORIDE (BEAKER) 106 meq/L 98-107 (test code = 382) CO2 (BEAKER) (test 25 meq/L 22-29 code = 355) BLOOD UREA NITROGEN 14 mg/dL 7-21 (BEAKER) (test code = 354) CREATININE (BEAKER) 0.95 mg/dL 0.57-1.25 (test code = 358) GLUCOSE RANDOM 99 mg/dL 70-105 (BEAKER) (test code = 652) CALCIUM (BEAKER) 8.9 mg/dL 8.4-10.2 (test code = 697) EGFR (BEAKER) (test 85 mL/min/1.73 ESTIMA DE GFR IS code = 1092) sq m NOT ACCURATE CREATININE CLEARANCE IN PREDICTING GLOMERULAR FILTRATION RATE . ESTIMATED GFR I S NOT APPLICABLE FOR DIALYSIS PATIEN TS. LIPID [id number] 06:10:00 Test Item Value Reference Range Interpretation Comments TRIGLYCERIDES (BEAKER) (test code = 188 mg/dL 540) CHOLESTEROL (BEAKER) (test code = 172 mg/dL 631) HDL CHOLESTEROL (BEAKER) (test code 28 mg/dL = 976) LDL CHOLESTEROL CALCULATED (BEAKER) 106 mg/dL (test code = 633) Triglyceride Reference Range: Low Risk <150 Borderline 150-199 High Risk 200-499 Very High Risk >=500Cholesterol Reference Range: Low Risk <200 Borderline 200-239 High Risk >240HDL Cholesterol Reference Range: Low Risk >=60 High Risk <40LDL Cholesterol Reference Range: Optimal <100 Near Optimal 100-129 Borderline 130-159 High 160-189 Very High >=190HEPATIC FUNCTION [id number] 06:10:00 Test Item Value Reference Range Interpretation Comments TOTAL PROTEIN (BEAKER) (test code = 7.4 gm/dL 6.0-8.3 770) ALBUMIN (BEAKER) (test code = 1145) 3.8 g/dL 3.5-5.0 BILIRUBIN TOTAL (BEAKER) (test code 0.4 mg/dL 0.2-1.2 = 377) BILIRUBIN DIRECT (BEAKER) (test 0.2 mg/dL 0.1-0.5 code = 706) ALKALINE PHOSPHATASE (BEAKER) (test 88 U/L 40-150 code = 346) AST (SGOT) (BEAKER) (test code = 16 U/L 5-34 353) ALT (SGPT) (BEAKER) (test code = 19 U/L 6-55 347) [id number] 05:35:00 Test Item Value Reference Range Interpretation Comments PROTIME (BEAKER) (test code = 14.8 seconds 11.9-14.2 H 759) INR (BEAKER) (test code = 370) 1.2 <=5.9 PARTIAL THROMBOPLASTIN TIME 33.4 seconds 22.5-36.0 (BEAKER) (test code = 760) Effective 12/08/2018: PT Reference Range ChangeNew: 11.9-14.2 Previous: 11.7- 14.7RECOMMENDED COUMADIN/WARFARIN INR THERAPY RANGESSTANDARD DOSE: 2.0-3.0 Includes: PROPHYLAXIS for venous thrombosis, systemic embolization; TREATMENT for venous thrombosis and/or pulmonary embolus.HIGH RISK: Target INR is2.5-3.5 for patients wiht mechanical heart valves.CBC W/PLT COUNT & AUTO [id number] 05:26:00 Test Item Value Reference Range Interpretation Comments WHITE BLOOD CELL COUNT (BEAKER) 9.2 K/ L 3.5-10.5 (test code = 775) RED BLOOD CELL COUNT (BEAKER) 4.60 M/ L 4.63-6.08 L (test code = 761) HEMOGLOBIN (BEAKER) (test code = 13.5 GM/DL 13.7-17.5 L 410) HEMATOCRIT (BEAKER) (test code = 43.5 % 40.1-51.0 411) MEAN CORPUSCULAR VOLUME (BEAKER) 94.6 fL 79.0-92.2 H (test code = 753) MEAN CORPUSCULAR HEMOGLOBIN 29.3 pg 25.7-32.2 (BEAKER) (test code = 751) MEAN CORPUSCULAR HEMOGLOBIN CONC 31.0 GM/DL 32.3-36.5 L (BEAKER) (test code = 752) RED CELL DISTRIBUTION WIDTH 14.8 % 11.6-14.4 H (BEAKER) (test code = 412) PLATELET COUNT (BEAKER) (test 164 K/CU MM 150-450 code = 756) MEAN PLATELET VOLUME (BEAKER) 9.9 fL 9.4-12.4 (test code = 754) NUCLEATED RED BLOOD CELLS 0 /100 WBC 0-0 (BEAKER) (test code = 413) NEUTROPHILS RELATIVE PERCENT 65 % (BEAKER) (test code = 429) LYMPHOCYTES RELATIVE PERCENT 26 % (BEAKER) (test code = 430) MONOCYTES RELATIVE PERCENT 6 % (BEAKER) (test code = 431) EOSINOPHILS RELATIVE PERCENT 1 % (BEAKER) (test code = 432) BASOPHILS RELATIVE PERCENT 1 % (BEAKER) (test code = 437) NEUTROPHILS ABSOLUTE COUNT 6.00 K/ L 1.78-5.38 H (BEAKER) (test code = 670) LYMPHOCYTES ABSOLUTE COUNT 2.41 K/ L 1.32-3.57 (BEAKER) (test code = 414) MONOCYTES ABSOLUTE COUNT (BEAKER) 0.59 K/ L 0.30-0.82 (test code = 415) EOSINOPHILS ABSOLUTE COUNT 0.10 K/ L 0.04-0.54 (BEAKER) (test code = 416) BASOPHILS ABSOLUTE COUNT (BEAKER) 0.05 K/ L 0.01-0.08 (test code = 417) IMMATURE GRANULOCYTES-RELATIVE 1 % 0-1 PERCENT (BEAKER) (test code = 2801) [id number] 09:48:00 Test Item Value Reference Range Interpretation Comments PARTIAL THROMBOPLASTIN TIME 71.3 seconds 22.5-36.0 H (BEAKER) (test code = 760) HEMOGLOBIN [id number] 09:40:00 Test Item Value Reference Range Interpretation Comments HEMOGLOBIN A1C (BEAKER) (test code = 6.5 % 4.3-6.1 H 368) POCT-GLUCOSE [id number] 07:32:00 Test Item Value Reference Range Interpretation Comments POC-GLUCOSE METER 120 mg/dL 70-110 H : TESTED A T [facility] [address] (BEJASON) (test code = [place], 1538) [address]: Binder Stripper Machine/Techni jossue ID = [id number] for RITA CHARLES TROPONIN [id number] 02:29:00 Test Item Value Reference Range Interpretation Comments TROPONIN I (BEAKER) (test code = 0.68 ng/mL 0.00-0.03 397) Troponin I (TnI) levels must be interpreted in the context of the presenting symptoms and the clinical findings. Elevated TnI levels indicate myocardial damage, but are not specific for ischemic heart disease. Elevated TnI levels are seen in patients with other cardiac conditions (including myocarditis and congestive heart failure), and slight TnI elevations occur in patients with other conditions, including sepsis, renal failure, acidosis, acute neurological disease, and persistent tachyarrhythmia.[id number] 02:19:00 Test Item Value Reference Range Interpretation Comments MAGNESIUM (BEAKER) 2.1 mg/dL 1.6-2.6 Specimen slightly (test code = 627) hemolyzed [id number] 02:19:00 Test Item Value Reference Range Interpretation Comments PHOSPHORUS (BEAKER) 3.3 mg/dL 2.3-4.7 Specimen slightly (test code = 604) hemolyzed BASIC METABOLIC [id number] 02:19:00 Test Item Value Reference Range Interpretation Comments SODIUM (BEAKER) 139 meq/L 136-145 (test code = 381) POTASSIUM (BEAKER) 4.9 meq/L 3.5-5.1 Specimen slightly (test code = 379) hemolyzed CHLORIDE (BEAKER) 106 meq/L 98-107 (test code = 382) CO2 (BEAKER) (test 25 meq/L 22-29 code = 355) BLOOD UREA NITROGEN 12 mg/dL 7-21 (BEAKER) (test code = 354) CREATININE (BEAKER) 0.93 mg/dL 0.57-1.25 Specimen slightly (test code = 358) hemolyzed GLUCOSE RANDOM 121 mg/dL 70-105 H (BEAKER) (test code = 652) CALCIUM (BEAKER) 8.9 mg/dL 8.4-10.2 (test code = 697) EGFR (BEAKER) (test 87 mL/min/1.73 ESTIMA DE GFR IS code = 1092) sq m NOT ACCURATE CREATININE CLEARANCE IN PREDICTING GLOMERULAR FILTRATION RATE . ESTIMATED GFR I S NOT APPLICABLE FOR DIALYSIS PATIEN TS. LIPID [id number] 02:19:00 Test Item Value Reference Range Interpretation Comments TRIGLYCERIDES (BEAKER) 133 mg/dL Speci men slightly (test code = 540) hemolyzed CHOLESTEROL (BEAKER) 162 mg/dL Specime n slightly (test code = 631) hemolyzed HDL CHOLESTEROL (BEAKER) 26 mg/dL (test code = 976) LDL CHOLESTEROL 109 mg/dL CALCULATED (BEAKER) (test code = 633) Triglyceride Reference Range: Low Risk <150 Borderline 150-199 High Risk 200-499 Very High Risk >=500Cholesterol Reference Range: Low Risk <200 Borderline 200-239 High Risk >240HDL Cholesterol Reference Range: Low Risk >=60 High Risk <40LDL Cholesterol Reference Range: Optimal <100 Near Optimal 100-129 Borderline 130-159 High 160-189 Very High >=190HEPATIC FUNCTION [id number] 02:19:00 Test Item Value Reference Range Interpretation Comments TOTAL PROTEIN (BEAKER) 7.4 gm/dL 6.0-8.3 Speci men slightly (test code = 770) hemolyzed ALBUMIN (BEAKER) (test 3.7 g/dL 3.5-5.0 Speci men slightly code = 1145) hemolyzed BILIRUBIN TOTAL 0.4 mg/dL 0.2-1.2 Specimen sli ghtly (BEAKER) (test code = hemoly zed 377) BILIRUBIN DIRECT 0.1 mg/dL 0.1-0.5 Specimen sl ightly (BEAKER) (test code = hemoly zed 706) ALKALINE PHOSPHATASE 92 U/L 40-150 (BEAKER) (test code = 346) AST (SGOT) (BEAKER) 20 U/L 5-34 Specimen slightly (test code = 353) hemolyzed ALT (SGPT) (BEAKER) 23 U/L 6-55 Specimen slightly (test code = 347) hemolyzed [id number] 02:01:00 Test Item Value Reference Range Interpretation Comments PARTIAL THROMBOPLASTIN TIME 46.5 seconds 22.5-36.0 H (BEAKER) (test code = 760) Prior to initiating heparinPOCT-GLUCOSE [id number] 01:59:00 Test Item Value Reference Range Interpretation Comments POC-GLUCOSE METER 126 mg/dL 70-110 H : TESTED A T [facility] 6720 (BEAKER) (test code [facility], = 1538) [address]: Binder Stripper Machine/Techni jossue ID = [id number] for ELEANOR ORANTES CBC W/PLT COUNT & AUTO [id number] 01:57:00 Test Item Value Reference Range Interpretation Comments WHITE BLOOD CELL COUNT (BEAKER) 11.9 K/ L 3.5-10.5 H (test code = 775) RED BLOOD CELL COUNT (BEAKER) 4.58 M/ L 4.63-6.08 L (test code = 761) HEMOGLOBIN (BEAKER) (test code = 13.6 GM/DL 13.7-17.5 L 410) HEMATOCRIT (BEAKER) (test code = 42.0 % 40.1-51.0 411) MEAN CORPUSCULAR VOLUME (BEAKER) 91.7 fL 79.0-92.2 (test code = 753) MEAN CORPUSCULAR HEMOGLOBIN 29.7 pg 25.7-32.2 (BEAKER) (test code = 751) MEAN CORPUSCULAR HEMOGLOBIN CONC 32.4 GM/DL 32.3-36.5 (BEAKER) (test code = 752) RED CELL DISTRIBUTION WIDTH 14.6 % 11.6-14.4 H (BEAKER) (test code = 412) PLATELET COUNT (BEAKER) (test 183 K/CU MM 150-450 code = 756) MEAN PLATELET VOLUME (BEAKER) 10.1 fL 9.4-12.4 (test code = 754) NUCLEATED RED BLOOD CELLS 0 /100 WBC 0-0 (BEAKER) (test code = 413) NEUTROPHILS RELATIVE PERCENT 71 % (BEAKER) (test code = 429) LYMPHOCYTES RELATIVE PERCENT 23 % (BEAKER) (test code = 430) MONOCYTES RELATIVE PERCENT 5 % (BEAKER) (test code = 431) EOSINOPHILS RELATIVE PERCENT 0 % (BEAKER) (test code = 432) BASOPHILS RELATIVE PERCENT 0 % (BEAKER) (test code = 437) NEUTROPHILS ABSOLUTE COUNT 8.46 K/ L 1.78-5.38 H (BEAKER) (test code = 670) LYMPHOCYTES ABSOLUTE COUNT 2.71 K/ L 1.32-3.57 (BEAKER) (test code = 414) MONOCYTES ABSOLUTE COUNT (BEAKER) 0.56 K/ L 0.30-0.82 (test code = 415) EOSINOPHILS ABSOLUTE COUNT 0.03 K/ L 0.04-0.54 L (BEAKER) (test code = 416) BASOPHILS ABSOLUTE COUNT (BEAKER) 0.05 K/ L 0.01-0.08 (test code = 417) IMMATURE GRANULOCYTES-RELATIVE 0 % 0-1 PERCENT (BEAKER) (test code = 7157)
[2021-01-02] MEDS ORDERED: METHYLPREDNISOLONE 125 MG INJ ONE (17:01)
[2021-01-02 17:19] LABS: Absolute Lymphocytes (CBC) 2.1 K/uL (0.7-4.9); Basophils % 0.8 % (0-1.3); Hematocrit 36.3 % (39.6-49.0); Lymphocytes % 24.5 % (15.3-44.8); MPV 7.9 fL (7.6-11.3); RBC Red Blood Cell Count 3.97 M/uL (4.33-5.43)
[2021-01-02 17:36] LABS: Potassium 4.7 mmol/L (3.5-5.1)
--- NOTE | 2021-01-02 18:37 | EDPHYS ---
Physician Documentation [facility] Name: Ihsan Montoya Age: 50 yrs Sex: Male : 1970 Arrival Date: 01/02/2021 Time: 14:41 Bed 13 Private MD: Maynor Suh E ED Physician Angel Thomas HPI: 01/02 17:34 This 50 yrs old Male presents to ER via Wheelchair with complaints of Leg jr8 Swelling. 17:34 Onset: The symptoms/episode began/occurred gradually. Modifying factors: The symptoms jr8 are alleviated by nothing. the symptoms are aggravated by nothing. Associated signs and symptoms: Pertinent positives: rash. Severity of symptoms: At their worst the symptoms were mild, in the emergency department the symptoms are unchanged. The patient has not experienced similar symptoms in the past. The patient has not recently seen a physician. Patient stated that he suffers from chronic discoloration from swelling and varicosity. Stated that over the past few days has increased redness and itching to left leg . Historical: - Allergies: 15:24 Narcan; "body fits"; tw2 - Home Meds: 15:24 methadone 40 mg Oral TbSO 2 tab once daily [Active]; Vitamin D2 50,000 unit oral cap 1 tw2 cap once daily [Active]; Eliquis 5 mg oral tab 1 tab 2 times per day [Active]; metformin 500 mg Oral tab 1 tab 2 times per day [Active]; carvedilol 6.25 mg oral tab 1 tab 2 times per day [Active]; omeprazole 40 mg Oral cpDR 1 cap once daily [Active]; spironolactone 25 mg Oral tab 1 tab once daily [Active]; losartan 50 mg oral tab 1 tab once daily [Active]; - PMHx: 15:24 Anxiety; drug abuse; EDEMA; Obesity; Panic Attacks; PE; Diabetes - NIDDM; Hypertension; tw2 - PSHx: 15:24 None; tw2 - Immunization history:: Adult Immunizations. - Social history:: Smoking status: Patient reports use of chewing tobacco. ROS: 17:34 Eyes: Negative for injury, pain, redness, and discharge, ENT: Negative for injury, jr8 pain, and discharge, Neck: Negative for injury, pain, and swelling, Cardiovascular: Negative for chest pain, palpitations, and edema, Respiratory: Negative for shortness of breath, cough, wheezing, and pleuritic chest pain, Abdomen/GI: Negative for abdominal pain, nausea, vomiting, diarrhea, and constipation, Back: Negative for injury and pain, MS/Extremity: Negative for injury and deformity, Neuro: Negative for headache, weakness, numbness, tingling, and seizure. 17:34 Skin: Positive for erythema, rash, of the left leg. Exam: 17:34 Constitutional: This is a well developed, well nourished patient who is awake, alert, jr8 and in no acute distress. Cardiovascular: Regular rate and rhythm with a normal S1 and S2. No gallops, murmurs, or rubs. Normal PMI, no JVD. No pulse deficits. Respiratory: Lungs have equal breath sounds bilaterally, clear to auscultation and percussion. No rales, rhonchi or wheezes noted. No increased work of breathing, no retractions or nasal flaring. MS/ Extremity: Pulses equal, no cyanosis. Neurovascular intact. Full, normal range of motion. Neuro: Awake and alert, GCS 15, oriented to person, place, time, and situation. Motor strength 5/5 in all extremities. Sensory grossly intact. 17:34 Skin: Patient has bronzing of both legs with varicose veins. Left lower leg with scabbing and breakdown of skin noted. Mild oozing of serous fluid seen. Proximal to this is erythema with papular rash with increased warmth. Vital Signs: 15:16 BP 134 / 102; Pulse 74; Resp 17; Temp 97.9(TE); Pulse Ox 99% on 3 lpm NC; Weight 185.97 tw2 kg; Height 5 ft. 11 in. (180.34 cm) (R); Pain 7/10; 15:16 Body Mass Index 57.18 (185.97 kg, 180.34 cm) tw2 15:16 3 L nc used at home tw2 MDM: 16:06 Patient medically screened. jr8 18:32 Data reviewed: vital signs, nurses notes, lab test result(s), and as a result, I will jr8 discharge patient. Data interpreted: Pulse oximetry: on room air is 99 %. Interpretation: normal. Counseling: I had a detailed discussion with the patient and/or guardian regarding: the historical points, exam findings, and any diagnostic results supporting the discharge/admit diagnosis, lab results, the need for outpatient follow up, a family practitioner, to return to the emergency department if symptoms worsen or persist or if there are any questions or concerns that arise at home. Response to treatment: the patient's symptoms have markedly improved after treatment. 01/02 16:34 Order name: CBC with Diff [facility] 01/02 16:34 Order name: Basic Metabolic Panel [facility] 01/02 16:34 Order name: Blood Culture Adult (2) [facility] 01/02 17:20 Order name: CBC with Automated Diff; Complete Time: 17:40 [facility] 01/02 17:36 Order name: Basic Metabolic Panel; Complete Time: 17:40 [facility] 01/02 16:35 Order name: IV; Complete Time: 16:35 [facility] Administered Medications: 17:41 Drug: SOLU-Medrol (methylPrednisoLONE) 125 mg Route: IVP; Site: right forearm; tr6 Disposition: 01/02/21 18:37 Discharged to Home. Impression: Rash and other nonspecific skin eruption, Local infection of the skin and subcutaneous tissue, unspecified. - Condition is Stable. - Discharge Instructions: Cellulitis, Adult, Rash. - Prescriptions for Bactrim DS 800- 160 mg Oral Tablet - take 1 tablet by ORAL route every 12 hours for 7 days; 14 tablet. Prednisone 20 mg Oral Tablet - take 2 tablet by ORAL route once daily for 5 days; 10 tablet. - Medication Reconciliation Form, Thank You Letter, Antibiotic Education, Prescription Opioid Use form. - Follow up: Maynor Suh MD; When: 5 - 6 days; Reason: Recheck today's complaints, Continuance of care, Re-evaluation by your physician. - Problem is new. - Symptoms have improved. Signatures: Dispatcher [employer] EDHI Jackson Salcedo PA PA jr8 Faiza Abbott RN RN tw2 Maricel Burrell RN RN tr6 Corrections: (The following items were deleted from the chart) 19:00 18:37 01/02/2021 18:37 Discharged to Home. Impression: Rash and other nonspecific skin tr6 eruption; Local infection of the skin and subcutaneous tissue, unspecified. Condition is Stable. Forms are Medication Reconciliation Form, Thank You Letter, Antibiotic Education, Prescription Opioid Use. Follow up: Maynor Suh; When: 5 - 6 days; Reason: Recheck today's complaints, Continuance of care, Re-evaluation by your physician. Problem is new. Symptoms have improved. jr8
--- NOTE | 2021-01-02 18:37 | ER ---
Nurse's Notes [facility] Name: Ihsan Montoya Age: 50 yrs Sex: Male : 1970 Arrival Date: 01/02/2021 Time: 14:41 Bed 13 Private MD: Maynor Suh E Diagnosis: Rash and other nonspecific skin eruption;Local infection of the skin and subcutaneous tissue, unspecified Presentation: 01/02 15:16 Chief complaint: Patient states: about 5 years ago it did this. my LEFT leg is swollen tw2 and it got infected. this time about 2 months ago it got swollen and i bumped into something and i got a sore and it was leaking. it looked like it was going away a little bit but then it started to spread all over my hands. and it itches. Coronavirus screen: At this time, the client does not indicate any symptoms associated with coronavirus-19. Ebola Screen: Patient denies travel to an Ebola-affected area in the 21 days before illness onset. Initial Sepsis Screen: Does the patient meet any 2 criteria? No. Patient's initial sepsis screen is negative. Does the patient have a suspected source of infection? No. Patient's initial sepsis screen is negative. Risk Assessment: Do you want to hurt yourself or someone else? Patient reports no desire to harm self or others. Onset of symptoms was January 02, 2021. 15:16 Method Of Arrival: Wheelchair tw2 15:16 Acuity: STEFAN 3 tw2 Triage Assessment: 15:24 General: Appears uncomfortable, obese, Behavior is calm, cooperative, appropriate for tw2 age. Pain: Complains of pain in left foot and left leg. Historical: - Allergies: 15:24 Narcan; "body fits"; tw2 - Home Meds: 15:24 methadone 40 mg Oral TbSO 2 tab once daily [Active]; Vitamin D2 50,000 unit oral cap 1 tw2 cap once daily [Active]; Eliquis 5 mg oral tab 1 tab 2 times per day [Active]; metformin 500 mg Oral tab 1 tab 2 times per day [Active]; carvedilol 6.25 mg oral tab 1 tab 2 times per day [Active]; omeprazole 40 mg Oral cpDR 1 cap once daily [Active]; spironolactone 25 mg Oral tab 1 tab once daily [Active]; losartan 50 mg oral tab 1 tab once daily [Active]; - PMHx: 15:24 Anxiety; drug abuse; EDEMA; Obesity; Panic Attacks; PE; Diabetes - NIDDM; Hypertension; tw2 - PSHx: 15:24 None; tw2 - Immunization history:: Adult Immunizations. - Social history:: Smoking status: Patient reports use of chewing tobacco. Screenin:48 Abuse screen: Denies threats or abuse. Denies injuries from another. Nutritional tr6 screening: No deficits noted. Tuberculosis screening: No symptoms or risk factors identified. Fall Risk None identified. Assessment: 18:45 General: Appears in no apparent distress. comfortable, Behavior is calm, cooperative, tr6 appropriate for age. Pain: Complains of pain in left distal leg. Neuro: No deficits noted. Cardiovascular: No deficits noted. Respiratory: No deficits noted. GI: No deficits noted. : No deficits noted. EENT: No deficits noted. Derm: Skin is fragile, has blisters on left distal leg Decubitus. Derm: pt has flaking fragile skin on distal left leg. pt reports that it is itchy and at painful. Musculoskeletal: No deficits noted. Vital Signs: 15:16 BP 134 / 102; Pulse 74; Resp 17; Temp 97.9(TE); Pulse Ox 99% on 3 lpm NC; Weight 185.97 tw2 kg; Height 5 ft. 11 in. (180.34 cm) (R); Pain 7/10; 15:16 Body Mass Index 57.18 (185.97 kg, 180.34 cm) tw2 15:16 3 L nc used at home tw2 ED Course: 14:41 Patient arrived in ED. mr 14:41 Maynor Suh MD is Private Physician. mr 15:19 Triage completed. tw2 15:24 Arm band placed on. tw2 16:02 Jackson Salcedo PA is PHCP. jr8 16:02 Angel Thomas MD is Attending Physician. jr8 16:35 Maricel Burrell, GENNA is Primary Nurse. tr6 18:36 Maynor Suh MD is Referral Physician. jr8 18:48 Patient has correct armband on for positive identification. Bed in low position. Side tr6 rails up X2. Pulse ox on. NIBP on. Door closed. Noise minimized. Visitors limited. Lights dimmed. 18:50 No provider procedures requiring assistance completed. IV discontinued, intact, tr6 bleeding controlled, No redness/swelling at site. Pressure dressing applied. Administered Medications: 17:41 Drug: SOLU-Medrol (methylPrednisoLONE) 125 mg Route: IVP; Site: right forearm; tr6 Outcome: 18:37 Discharge ordered by . tino 18:50 Discharged to home ambulatory. tr6 18:50 Condition: good 18:50 Discharge instructions given to patient, Instructed on discharge instructions, follow up and referral plans. medication usage, safety practices, Demonstrated understanding of instructions, follow-up care, medications. 19:00 Patient left the ED. tr6 Signatures: Michelle Beckham mr Matias, SAM Paz jr8 Faiza Abbott, RN RN tw2 Maricel Burrell RN RN tr6
[2021-01-02 19:32] VITALS: BP 134/102; TEMP 97.9; O2SAT 99
== END 2021-01-02 19:00 | disposition home or self-care (01) ==
LOC: ER 14:37
DX: L08.9 Local infection of the skin and subcutaneous tissue, unspecified (principal); I10 Essential (primary) hypertension; E11.9 Type 2 diabetes mellitus without complications; F17.220 Nicotine dependence, chewing tobacco, uncomplicated; Z79.01 Long term (current) use of anticoagulants; Z88.5 Allergy status to narcotic agent
CPT/HCPCS: 87040 ×2; 85025; 80048; 36415; J2930

== ENCOUNTER 2021-01-15 12:14 | Emergency (ER) | payer OTHER ==
--- OUTSIDE RECORDS SUMMARY | 2021-01-15 12:34 | XMS REPORT | Continuity of Care Document ---
:1970 Author Organization [facility] t Address [facility] Jeffery Viz[address]ra [address] [place] [address] Care Team Providers Name Role Phone OMRANIAN Attending Clinician Unavailable OMRANIAN Admitting Clinician Unavailable Problems Condition Condition Condition Status Onset Resolution Last Treating Co mments Source Name Details Category Date Date Treatment Clinician Date [place] Disease Active 2018-[address] [facility] pulmonary pulmonary 2-14 [facility] - embolus embolus 00:00: Medical 00 [place] KEITH KEITH Disease Active 2018-[address] [facility] (obstructi (obstructi 2-14 [facility] - ve sleep ve sleep 00:00: Medica l apnea) apnea) 00 [place] Chronic Chronic Disease Active 2018-[address] [facility] narcotic narcotic 2-14 [facility] - dependence dependence 00:00: Me dical 00 [place] Allergies, Adverse Reactions, Alerts Allergy Allergy Status Severity Reaction(s) Onset Inactive Treating Comm ents Source Name Type Date Date Clinician Naloxone Drug Active Other (See 2018-[address] [facility] Allergy Comments) 2-14 [facility] - 00:00: Medical 00 [place] Family History Family Member Diagnosis Comments Start Date Stop Date Source Natural mother Stroke [facility] - [facility] Social History Social Habit Start Date Stop Date Quantity Comments Source History SDOH [facility] - Alcohol Binge Medical [place] [facility] Sex Assigned At [facility] History SDOH [facility] - Alcohol Std Drinks Medica l [place] Tobacco use and 2019-06-27 2019-06-27 Never used [facility] kes - exposure 00:00:00 00:00:00 Medical Center Alcohol intake 2019-06-27 2019-06-27 Current [facility] Ant es - 00:00:00 00:00:00 non-drinker of Medical Ce nter alcohol (finding) History SDOH 2019-06-25 2019-06-[address] [facility] - Alcohol Frequency 00:00:00 00:00:00 [facility] Center Smoking Status Start Date Stop Date Source Heavy tobacco smoker 2019-06-27 00:00:[address] [facility] Medications Ordered Filled Start Stop Current [...] Comments Source Future Scheduled 2022-06-27 Lipid panel [facility] - Test 00:00:00 (procedure) [code = [facility] 25000684] Future Scheduled 2020-03-13 INFLUENZA VACCINE (#1) C [...] NOT 1092) ACCURATE CRE ATININE CLEARANCE IN [place] EDICTING GLOMERULAR FILT RATION RATE. ESTIMATED GFR [...] WBC 0-0 (BEAKER) (test code = 413) [id number] 22:41:00 Test Item Value Reference Range Interpretation Comments PARTIAL THROMBOPLASTIN TIME 41.6 seconds 22.5-36.0 H (BEAKER) (test code = 760) [id number] 13:52:00 Test Item Value Reference Range Interpretation Comments PARTIAL THROMBOPLASTIN TIME 35.3 seconds 22.5-36.0 (BEAKER) (test code = 760) HEMOGLOBIN [id number] 08:28:00 Test Item Value Reference Range Interpretation Comments HEMOGLOBIN A1C (BEAKER) (test code = 6.4 % 4.3-6.1 H 368) [id number] 07:29:00 Test Item Value Reference Range Interpretation Comments PHOSPHORUS (BEAKER) (test code = 4.4 mg/dL 2.3-4.7 604) [id number] 07:29:00 Test Item Value Reference Range Interpretation Comments MAGNESIUM (BEAKER) (test code = 2.1 mg/dL 1.6-2.6 627) BASIC METABOLIC [id number] 07:29:00 Test Item Value Reference Range Interpretation [...] NOT APPLICABLE FOR DIALYSIS PATIEN TS. LIPID [id number] 07:29:00 Test Item Value Reference Range Interpretation [...] 130-159 High 160-189 Very High >=190HEPATIC FUNCTION [id number] 07:29:00 Test Item Value Reference Range Interpretation [...] (test code = 19 U/L 6-55 347) [id number] 06:48:00 Test Item Value Reference Range Interpretation [...] WBC 0-0 (BEAKER) (test code = 413) [id number] 00:10:00 Test Item Value Reference Range Interpretation Comments PARTIAL THROMBOPLASTIN TIME 35.6 seconds 22.5-36.0 (BEAKER) (test code = 760) [id number] 17:10:00 Test Item Value Reference Range Interpretation Comments PARTIAL THROMBOPLASTIN TIME 32.4 seconds 22.5-36.0 (BEAKER) (test code = 760) Prior to initiating heparinPLATELET [id number] 17:02:00 Test Item Value Reference Range Interpretation Comments PLATELET COUNT (BEAKER) (test 170 K/CU MM 150-450 code = 756) HEMOGLOBIN [id number] 08:48:00 Test Item Value Reference Range Interpretation Comments HEMOGLOBIN A1C (BEAKER) (test code = 6.5 % 4.3-6.1 H 368) [id number] 06:10:00 Test Item Value Reference Range Interpretation Comments PHOSPHORUS (BEAKER) (test code = 4.1 mg/dL 2.3-4.7 604) [id number] 06:10:00 Test Item Value Reference Range Interpretation Comments MAGNESIUM (BEAKER) (test code = 2.2 mg/dL 1.6-2.6 627) BASIC METABOLIC [id number] 06:10:00 Test Item Value Reference Range Interpretation [...] NOT APPLICABLE FOR DIALYSIS PATIEN TS. LIPID [id number] 06:10:00 Test Item Value Reference Range Interpretation [...] 130-159 High 160-189 Very High >=190HEPATIC FUNCTION [id number] 06:10:00 Test Item Value Reference Range Interpretation [...] (test code = 19 U/L 6-55 347) [id number] 05:35:00 Test Item Value Reference Range Interpretation [...] mechanical heart valves.CBC W/PLT COUNT & AUTO [id number] 05:26:00 Test Item Value Reference Range Interpretation [...] 0-1 PERCENT (BEAKER) (test code = 2801) [id number] 09:48:00 Test Item Value Reference Range Interpretation Comments PARTIAL THROMBOPLASTIN TIME 71.3 seconds 22.5-36.0 H (BEAKER) (test code = 760) HEMOGLOBIN [id number] 09:40:00 Test Item Value Reference Range Interpretation Comments HEMOGLOBIN A1C (BEAKER) (test code = 6.5 % 4.3-6.1 H 368) POCT-GLUCOSE [id number] 07:32:00 Test Item Value Reference Range Interpretation Comments POC-GLUCOSE METER 120 mg/dL 70-110 H : TESTED A T [facility] 6720 (BEJAOSN) (test code = LOLY [place], 1538) [id number]: Knee Bolter/Techni jossue ID = [id number] for RITA CHARLES TROPONIN [id number] 02:29:00 Test Item Value Reference Range Interpretation [...] failure, acidosis, acute neurological disease, and persistent tachyarrhythmia.[id number] 02:19:00 Test Item Value Reference Range Interpretation Comments MAGNESIUM (BEAKER) 2.1 mg/dL 1.6-2.6 Specimen slightly (test code = 627) hemolyzed [id number] 02:19:00 Test Item Value Reference Range Interpretation Comments PHOSPHORUS (BEAKER) 3.3 mg/dL 2.3-4.7 Specimen slightly (test code = 604) hemolyzed BASIC METABOLIC [id number] 02:19:00 Test Item Value Reference Range Interpretation [...] NOT APPLICABLE FOR DIALYSIS PATIEN TS. LIPID [id number] 02:19:00 Test Item Value Reference Range Interpretation [...] 130-159 High 160-189 Very High >=190HEPATIC FUNCTION [id number] 02:19:00 Test Item Value Reference Range Interpretation [...] Specimen slightly (test code = 347) hemolyzed [id number] 02:01:00 Test Item Value Reference Range Interpretation Comments PARTIAL THROMBOPLASTIN TIME 46.5 seconds 22.5-36.0 H (BEAKER) (test code = 760) Prior to initiating heparinPOCT-GLUCOSE [id number] 01:59:00 Test Item Value Reference Range Interpretation Comments POC-GLUCOSE METER 126 mg/dL 70-110 H : TESTED A T [facility] 6720 (BEAKER) (test code [facility], = 1538) [id number]: Knee Bolter/Techni jossue ID = [id number] for ELEANOR ORANTES CBC W/PLT COUNT & AUTO [id number] 01:57:00 Test Item Value Reference Range Interpretation [...] % 0-1 PERCENT (BEAKER) (test code = 7710)
--- NOTE | 2021-01-15 13:36 | EDPHYS ---
Physician Documentation [facility] Name: Ihsan Montoya Age: 50 yrs Sex: Male : 1970 Arrival Date: 01/15/2021 Time: 12:17 Bed 28 Private MD: JENNA Physician Hernando Echeverria HPI: 01/15 13:36 This 50 yrs old Male presents to ER via Ambulatory with complaints of Rash. pm1 13:36 The patient's rash thought to be caused by an unknown cause, possibly psoriasis or pm1 eczema. The rash is located on the right hand, left hand and anterior aspect of left ankle. The rash can be described as crusted, plaque-like. Onset: The symptoms/episode began/occurred Ongoing for about 3 weeks. Seen here 2 weeks ago when is was at its worse. Was given antibiotics and steroids and it improved and was almost gone but once the medications ran out it came back again. He was not able to follow up with his PCP and wanted to get treatment for the rash before it got worse. Associated signs and symptoms: Pertinent positives: itching, Pertinent negatives: fever. Severity of symptoms: in the emergency department the symptoms are worse. Treatment given at home: Benadryl, steroid lotion/cream. Historical: - Allergies: 12:34 Narcan; "body fits"; iw - Home Meds: 12:34 carvedilol 6.25 mg Oral tab 1 tab 2 times per day [Active]; Eliquis 5 mg Oral tab 1 tab iw 2 times per day [Active]; losartan 50 mg Oral tab 1 tab once daily [Active]; metformin 500 mg Oral tab 1 tab 2 times per day [Active]; methadone 40 mg Oral TbSO 2 tab once daily [Active]; omeprazole 40 mg Oral cpDR 1 cap once daily [Active]; spironolactone 25 mg Oral tab 1 tab once daily [Active]; Vitamin D2 50,000 unit Oral cap 1 cap once daily [Active]; - PMHx: 12:34 Anxiety; Diabetes - NIDDM; drug abuse; EDEMA; Hypertension; Obesity; Panic Attacks; PE; iw - Immunization history:: Adult Immunizations up to date. - Social history:: Smoking status: Patient denies any tobacco usage or history of. ROS: 13:36 Constitutional: Negative for fever, chills, and weight loss, Cardiovascular: Negative pm1 for chest pain, palpitations, and edema, Respiratory: Negative for shortness of breath, cough, wheezing, and pleuritic chest pain, Abdomen/GI: Negative for abdominal pain, nausea, vomiting, diarrhea, and constipation, MS/Extremity: Negative for injury and deformity. 13:36 Neuro: Negative for headache, weakness, numbness, tingling, and seizure. 13:36 Skin: Positive for rash, of the left hand and right hand and anterior aspect of left ankle. 13:36 All other systems are negative. Exam: 13:36 Constitutional: This is a well developed, well nourished patient who is awake, alert, pm1 and in no acute distress. Head/Face: Normocephalic, atraumatic. 13:36 Cardiovascular: Exam negative for acute changes, Rate: normal, Rhythm: regular, Pulses: no pulse deficits are appreciated. 13:36 Respiratory: Exam negative for acute changes, respiratory distress, shortness of breath. 13:36 Abdomen/GI: Exam negative for acute changes, Inspection: abdomen appears normal, Palpation: abdomen is soft and non-tender, in all quadrants. 13:36 Skin: Appearance: normal except for affected area, rash a mild rash is noted, consistent with psoriasis, on the right hand and left hand and anterior aspect of left ankle. 13:36 Neuro: Exam negative for acute changes, Orientation: is normal, Mentation: is normal, Motor: is normal, moves all fours. Vital Signs: 12:32 BP 112 / 99; Pulse 79; Resp 20; Temp 97.5; Pulse Ox 97% on 3 lpm NC; Weight 185.97 kg; iw Height 5 ft. 11 in. (180.34 cm); 12:32 Body Mass Index 57.18 (185.97 kg, 180.34 cm) iw MDM: 13:09 Patient medically screened. [facility] 13:35 Data reviewed: vital signs. Data interpreted: Pulse oximetry: on room air is 97 %. pm1 Interpretation: normal. Counseling: I had a detailed discussion with the patient and/or guardian regarding: the historical points, exam findings, and any diagnostic results supporting the discharge/admit diagnosis, the need for outpatient follow up, a residential leasing agent, to return to the emergency department if symptoms worsen or persist or if there are any questions or concerns that arise at home. Administered Medications: 13:50 Drug: predniSONE 60 mg Route: PO; ld1 Disposition: 18:51 Co-signature as Attending Physician, Hernando Echeverria MD I agree with the assessment and duane plan of care. Disposition Summary: 01/15/21 13:36 Discharge Ordered Location: Home pm1 Problem: new pm1 Symptoms: have improved pm1 Condition: Stable pm1 Diagnosis - Rash and other nonspecific skin eruption pm1 - Local infection of the skin and subcutaneous tissue, unspecified pm1 Followup: pm1 - With: Emergency Department - When: As needed - Reason: Worsening of condition Followup: pm1 - With: Private Physician - When: 2 - 3 days - Reason: Recheck today's complaints, Continuance of care, Re-evaluation by your physician Discharge Instructions: - Discharge Summary Sheet pm1 - Cellulitis, Adult pm1 - Rash, Adult pm1 Forms: - Medication Reconciliation Form pm1 - Thank You Letter pm1 - Antibiotic Education pm1 - Prescription Opioid Use pm1 Prescriptions: - Medrol (Edgard) 4 mg Oral Tablets, Dose Pack - take 1 tablet by ORAL route as directed - follow package instructions; 1 pm1 packet; Refills: 0, Product Selection Permitted - Bactrim DS 800-160 mg Oral Tablet - take 1 tablet by ORAL route every 12 hours for 10 days; 20 tablet; Refills: 0, pm1 Product Selection Permitted Signatures: Hernando Echeverria MD MD cha Williams, Irene, RN Star Huynh NP BARREL RAISER pm1 Adrianna Ward RN RN ld1
--- NOTE | 2021-01-15 13:36 | ER ---
Nurse's Notes [facility] Name: Ihsan Montoya Age: 50 yrs Sex: Male : 1970 Arrival Date: 01/15/2021 Time: 12:17 Bed 28 Private MD: Diagnosis: Rash and other nonspecific skin eruption;Local infection of the skin and subcutaneous tissue, unspecified Presentation: 01/15 12:31 Chief complaint: Chief complaint: Patient states: left leg swelling, itching, has moved iw to hands, started about a week ago, was seen here for similar symptoms a few weeks ago and had a steroid shot and sent home with antibiotics and got better but now it came back. 12:32 Coronavirus screen: At this time, the client does not indicate any symptoms associated iw with coronavirus-19. Ebola Screen: Patient negative for fever greater than or equal to 101.5 degrees Fahrenheit, and additional compatible Ebola Virus Disease symptoms Patient denies exposure to infectious person. Patient denies travel to an Ebola-affected area in the 21 days before illness onset. No symptoms or risks identified at this time. Initial Sepsis Screen: Does the patient meet any 2 criteria? No. Patient's initial sepsis screen is negative. Does the patient have a suspected source of infection? No. Patient's initial sepsis screen is negative. Risk Assessment: Do you want to hurt yourself or someone else? Patient reports no desire to harm self or others. Onset of symptoms was January 09, 2021. 12:32 Method Of Arrival: Ambulatory iw 12:32 Acuity: STEFAN 3 iw Historical: - Allergies: 12:34 Narcan; "body fits"; iw - Home Meds: 12:34 carvedilol 6.25 mg Oral tab 1 tab 2 times per day [Active]; Eliquis 5 mg Oral tab 1 tab iw 2 times per day [Active]; losartan 50 mg Oral tab 1 tab once daily [Active]; metformin 500 mg Oral tab 1 tab 2 times per day [Active]; methadone 40 mg Oral TbSO 2 tab once daily [Active]; omeprazole 40 mg Oral cpDR 1 cap once daily [Active]; spironolactone 25 mg Oral tab 1 tab once daily [Active]; Vitamin D2 50,000 unit Oral cap 1 cap once daily [Active]; - PMHx: 12:34 Anxiety; Diabetes - NIDDM; drug abuse; EDEMA; Hypertension; Obesity; Panic Attacks; PE; iw - Immunization history:: Adult Immunizations up to date. - Social history:: Smoking status: Patient denies any tobacco usage or history of. Screenin:16 Abuse screen: Denies threats or abuse. Denies injuries from another. Nutritional ld1 screening: No deficits noted. Tuberculosis screening: No symptoms or risk factors identified. Fall Risk None identified. Assessment: 13:15 General: Appears in no apparent distress. uncomfortable, Behavior is cooperative, ld1 appropriate for age, anxious. Pain: Denies pain. Neuro: Level of Consciousness is awake, alert, obeys commands, Oriented to person, place, time, situation. Cardiovascular: Capillary refill < 3 seconds Patient's skin is warm and dry. Respiratory: Airway is patent Respiratory effort is even, unlabored, Respiratory pattern is regular, symmetrical. GI: Abdomen is non-distended, obese. : No signs and/or symptoms were reported regarding the genitourinary system. EENT: No signs and/or symptoms were reported regarding the EENT system. Derm: Rash noted that is itchy, on right hand, left hand, right leg and left leg. Musculoskeletal: No signs and/or symptoms reported regarding the musculoskeletal system. Vital Signs: 12:32 BP 112 / 99; Pulse 79; Resp 20; Temp 97.5; Pulse Ox 97% on 3 lpm NC; Weight 185.97 kg; iw Height 5 ft. 11 in. (180.34 cm); 12:32 Body Mass Index 57.18 (185.97 kg, 180.34 cm) iw ED Course: 12:17 Patient arrived in ED. rg4 12:34 Triage completed. iw 12:34 Arm band placed on. iw 13:00 Adrianna Ward, GENNA is Primary Nurse. ld1 13:08 Star Castle NP is PHCP. pm1 13:08 Hernando Echeverria MD is Attending Physician. pm1 13:16 Patient has correct armband on for positive identification. Bed in low position. Call ld1 light in reach. Side rails up X2. monitor and storage bin tender on. Pulse ox on. NIBP on. 13:16 No provider procedures requiring assistance completed. ld1 13:50 Patient did not have IV access during this emergency room visit. intact, bleeding ld1 controlled, No redness/swelling at site. Administered Medications: 13:50 Drug: predniSONE 60 mg Route: PO; ld1 Outcome: 13:36 Discharge ordered by MD. pm1 13:50 Discharged to home ambulatory. ld1 13:50 Condition: stable 13:50 Discharge instructions given to patient, Instructed on discharge instructions, follow up and referral plans. medication usage, Demonstrated understanding of instructions, follow-up care, medications. 13:50 Patient left the ED. ld1 Signatures: Makenzie Dobbs RN RN iw Star Castle NP NURSING INFORMATION SYSTEMS COORDINATOR pm1 Jody Arroyo rg4 Adrianna Ward RN RN ld1 Corrections: (The following items were deleted from the chart) 12:34 12:31 Chief complaint: tegan javed
[2021-01-15 13:58] VITALS: BP 112/99; TEMP 97.5; O2SAT 97
[2021-01-15] MEDS ORDERED: predniSONE 20 MG TAB ONE (14:07)
== END 2021-01-15 13:50 | disposition home or self-care (01) ==
LOC: ER 12:14
DX: L08.9 Local infection of the skin and subcutaneous tissue, unspecified (principal); I10 Essential (primary) hypertension; E11.9 Type 2 diabetes mellitus without complications; Z79.01 Long term (current) use of anticoagulants; Z88.5 Allergy status to narcotic agent
CPT/HCPCS: 99284; J7512

== ENCOUNTER 2021-01-28 11:55 | Emergency (ER) | payer OTHER ==
--- OUTSIDE RECORDS SUMMARY | 2021-01-28 11:57 | XMS REPORT | Continuity of Care Document ---
:1970 Author Organization [facility] t Address [facility] [address] [place] [address] Care Team Providers Name Role Phone OMRANIAN Attending Clinician Unavailable OMRANIAN Admitting Clinician Unavailable Problems Condition Condition Condition Status Onset Resolution Last Treating Co mments Source Name Details Category Date Date Treatment Clinician Date [place] Disease Active 2018-[address] [facility] pulmonary pulmonary 2-14 [facility] - embolus embolus 00:00: Medical 00 [place] KEITH KEITH Disease Active 2018-[address] [facility] (obstructi (obstructi 2-14 [facility] - ve sleep ve sleep 00:00: Medica l apnea) apnea) 00 [place] Chronic Chronic Disease Active 2018-[address] [facility] narcotic narcotic 2-14 [facility] - dependence dependence 00:00: Me dical 00 [place] Allergies, Adverse Reactions, Alerts Allergy Allergy Status Severity Reaction(s) Onset Inactive Treating Comm ents Source Name Type Date Date Clinician Naloxone Drug Active Other (See 2018-[address] [facility] Allergy Comments) 2-14 [facility] - 00:00: Medical 00 [place] Family History Family Member Diagnosis Comments Start Date Stop Date Source Natural mother Stroke [facility] - [facility] Social History Social Habit Start Date Stop Date Quantity Comments Source History SDOH [facility] - Alcohol Binge Medical [place] [facility] Sex Assigned At [facility] St kes [facility] Center History SDOH [facility] - Alcohol Std Drinks Medica l [place] Tobacco use and 2019-06-27 2019-06-27 Never used [facility]anna kes - exposure 00:00:00 00:00:00 Medical Center Alcohol intake 2019-06-27 2019-06-27 Current [facility] St Ant es - 00:00:00 00:00:00 non-drinker of Medical Ce nter alcohol (finding) History SDOH 2019-06-25 2019-06-[address] [facility] - Alcohol Frequency 00:00:00 00:00:00 Medical Center Smoking Status Start Date Stop Date Source Heavy tobacco smoker 2019-06-27 00:00:[address] [facility] Center Medications Ordered Filled Start Stop Current [...] Comments Source Future Scheduled 2022-06-27 Lipid panel [facility] - Test 00:00:00 (procedure) [code = [facility] [id number]] Future Scheduled 2020-03-13 INFLUENZA VACCINE (#1) C [...] NOT 1092) ACCURATE CRE ATININE CLEARANCE IN MS EDICTING GLOMERULAR FILT RATION RATE. ESTIMATED GFR [...] WBC 0-0 (BEAKER) (test code = 413) [id number] 22:41:00 Test Item Value Reference Range Interpretation Comments PARTIAL THROMBOPLASTIN TIME 41.6 seconds 22.5-36.0 H (BEAKER) (test code = 760) [id number] 13:52:00 Test Item Value Reference Range Interpretation Comments PARTIAL THROMBOPLASTIN TIME 35.3 seconds 22.5-36.0 (BEAKER) (test code = 760) HEMOGLOBIN [id number] 08:28:00 Test Item Value Reference Range Interpretation Comments HEMOGLOBIN A1C (BEAKER) (test code = 6.4 % 4.3-6.1 H 368) [id number] 07:29:00 Test Item Value Reference Range Interpretation Comments PHOSPHORUS (BEAKER) (test code = 4.4 mg/dL 2.3-4.7 604) [id number] 07:29:00 Test Item Value Reference Range Interpretation Comments MAGNESIUM (BEAKER) (test code = 2.1 mg/dL 1.6-2.6 627) BASIC METABOLIC [id number] 07:29:00 Test Item Value Reference Range Interpretation [...] NOT APPLICABLE FOR DIALYSIS PATIEN TS. LIPID [id number] 07:29:00 Test Item Value Reference Range Interpretation [...] 130-159 High 160-189 Very High >=190HEPATIC FUNCTION [id number] 07:29:00 Test Item Value Reference Range Interpretation [...] (test code = 19 U/L 6-55 347) [id number] 06:48:00 Test Item Value Reference Range Interpretation [...] WBC 0-0 (BEAKER) (test code = 413) [id number] 00:10:00 Test Item Value Reference Range Interpretation Comments PARTIAL THROMBOPLASTIN TIME 35.6 seconds 22.5-36.0 (BEAKER) (test code = 760) [id number] 17:10:00 Test Item Value Reference Range Interpretation Comments PARTIAL THROMBOPLASTIN TIME 32.4 seconds 22.5-36.0 (BEAKER) (test code = 760) Prior to initiating heparinPLATELET [id number] 17:02:00 Test Item Value Reference Range Interpretation Comments PLATELET COUNT (BEAKER) (test 170 K/CU MM 150-450 code = 756) HEMOGLOBIN [id number] 08:48:00 Test Item Value Reference Range Interpretation Comments HEMOGLOBIN A1C (BEAKER) (test code = 6.5 % 4.3-6.1 H 368) [id number] 06:10:00 Test Item Value Reference Range Interpretation Comments PHOSPHORUS (BEAKER) (test code = 4.1 mg/dL 2.3-4.7 604) [id number] 06:10:00 Test Item Value Reference Range Interpretation Comments MAGNESIUM (BEAKER) (test code = 2.2 mg/dL 1.6-2.6 627) BASIC METABOLIC [id number] 06:10:00 Test Item Value Reference Range Interpretation [...] NOT APPLICABLE FOR DIALYSIS PATIEN TS. LIPID [id number] 06:10:00 Test Item Value Reference Range Interpretation [...] 130-159 High 160-189 Very High >=190HEPATIC FUNCTION [id number] 06:10:00 Test Item Value Reference Range Interpretation [...] (test code = 19 U/L 6-55 347) [id number] 05:35:00 Test Item Value Reference Range Interpretation [...] mechanical heart valves.CBC W/PLT COUNT & AUTO [id number] 05:26:00 Test Item Value Reference Range Interpretation [...] 0-1 PERCENT (BEAKER) (test code = 2801) [id number] 09:48:00 Test Item Value Reference Range Interpretation Comments PARTIAL THROMBOPLASTIN TIME 71.3 seconds 22.5-36.0 H (BEAKER) (test code = 760) HEMOGLOBIN [id number] 09:40:00 Test Item Value Reference Range Interpretation Comments HEMOGLOBIN A1C (BEAKER) (test code = 6.5 % 4.3-6.1 H 368) POCT-GLUCOSE [id number] 07:32:00 Test Item Value Reference Range Interpretation Comments POC-GLUCOSE METER 120 mg/dL 70-110 H : TESTED A T [facility] 6720 (BEJASON) (test code = [place], 1538) [address]: Legal Intern/Techni jossue ID = [id number] for RITA CHARLES TROPONIN [id number] 02:29:00 Test Item Value Reference Range Interpretation [...] failure, acidosis, acute neurological disease, and persistent tachyarrhythmia.[id number] 02:19:00 Test Item Value Reference Range Interpretation Comments MAGNESIUM (BEAKER) 2.1 mg/dL 1.6-2.6 Specimen slightly (test code = 627) hemolyzed [id number] 02:19:00 Test Item Value Reference Range Interpretation Comments PHOSPHORUS (BEAKER) 3.3 mg/dL 2.3-4.7 Specimen slightly (test code = 604) hemolyzed BASIC METABOLIC [id number] 02:19:00 Test Item Value Reference Range Interpretation [...] NOT APPLICABLE FOR DIALYSIS PATIEN TS. LIPID [id number] 02:19:00 Test Item Value Reference Range Interpretation [...] 130-159 High 160-189 Very High >=190HEPATIC FUNCTION [id number] 02:19:00 Test Item Value Reference Range Interpretation [...] Specimen slightly (test code = 347) hemolyzed [id number] 02:01:00 Test Item Value Reference Range Interpretation Comments PARTIAL THROMBOPLASTIN TIME 46.5 seconds 22.5-36.0 H (BEAKER) (test code = 760) Prior to initiating heparinPOCT-GLUCOSE [id number] 01:59:00 Test Item Value Reference Range Interpretation Comments POC-GLUCOSE METER 126 mg/dL 70-110 H : TESTED A T [facility] 6720 (BEAKER) (test code [facility], = 1538) [address]255: Legal Intern/Techni jossue ID = [id number] for ELEANOR ORANTES CBC W/PLT COUNT & AUTO [id number] 01:57:00 Test Item Value Reference Range Interpretation [...] % 0-1 PERCENT (BEAKER) (test code = 5661)
[2021-01-28] MEDS ORDERED: hydrOXYzine HCL 25 MG TAB ONE (15:01)
--- NOTE | 2021-01-28 15:01 | ER ---
Nurse's Notes [facility] Name: Ihsan Montoya Age: 50 yrs Sex: Male : 1970 Arrival Date: 01/28/2021 Time: 11:59 Bed 5 Private MD: Maynor Suh E Diagnosis: Rash and other nonspecific skin eruption Presentation: 01/28 12:22 Chief complaint: Patient states: I have swelling and redness on L legs, came here few ca1 weeks ago and was prescribed abx and steroids. It got better but I think it's coming back. Now, my hands are red and swollen and they hurt. I also feel my muscles burning when I walk short distance. Coronavirus screen: Client denies travel out of the [place] in the last 14 days. At this time, the client does not indicate any symptoms associated with coronavirus-19. Ebola Screen: Patient negative for fever greater than or equal to 101.5 degrees Fahrenheit, and additional compatible Ebola Virus Disease symptoms Patient denies exposure to infectious person. Patient denies travel to an Ebola-affected area in the 21 days before illness onset. No symptoms or risks identified at this time. Initial Sepsis Screen: Does the patient meet any 2 criteria? No. Patient's initial sepsis screen is negative. Does the patient have a suspected source of infection? No. Patient's initial sepsis screen is negative. Risk Assessment: Do you want to hurt yourself or someone else? Patient reports no desire to harm self or others. 12:22 Method Of Arrival: Ambulatory ca1 12:22 Acuity: STEFAN 3 ca1 12:22 Onset of symptoms was January 28, 2021. ca1 Historical: - Allergies: 12:25 Narcan; "body fits"; ca1 - Home Meds: 12:25 carvedilol 6.25 mg Oral tab 1 tab 2 times per day [Active]; Eliquis 5 mg Oral tab 1 tab ca1 2 times per day [Active]; losartan 50 mg Oral tab 1 tab once daily [Active]; methadone 40 mg Oral TbSO 2 tab once daily [Active]; metformin 500 mg Oral tab 1 tab 2 times per day [Active]; spironolactone 25 mg Oral tab 1 tab once daily [Active]; Vitamin D2 50,000 unit Oral cap 1 cap once daily [Active]; omeprazole 40 mg Oral cpDR 1 cap once daily [Active]; - PMHx: 12:25 Anxiety; drug abuse; Diabetes - NIDDM; EDEMA; Hypertension; Obesity; Panic Attacks; PE; ca1 - Immunization history:: Client reports receiving the 2nd dose of the Covid vaccine, Client reports receiving the 1st dose of the Covid vaccine, Flu vaccine is not up to date. - Social history:: Smoking status: Patient reports the use of cigarette tobacco products, denies chronic smoking, but will smoke occasionally. Screenin:30 Abuse screen: Denies threats or abuse. Denies injuries from another. Nutritional jl7 screening: No deficits noted. Tuberculosis screening: No symptoms or risk factors identified. Fall Risk None identified. Assessment: 14:30 General: Appears in no apparent distress. uncomfortable, Behavior is calm, cooperative, jl7 appropriate for age, anxious. Pain: Complains of pain in right hand, left hand, right foot and left foot Pain currently is 7 out of 10 on a pain scale. Neuro: Level of Consciousness is awake, alert, obeys commands, Oriented to person, place, time, situation. Cardiovascular: Patient's skin is warm and dry. Respiratory: Airway is patent Respiratory effort is even, unlabored, Respiratory pattern is regular, symmetrical. Derm: Skin is pink, warm \\T\\ dry. Rash noted that is on right hand, left hand, right foot and left foot. Vital Signs: 12:22 BP 105 / 74; Pulse 64; Resp 18 S; Temp 98(O); Pulse Ox 98% on 4 lpm NC; Weight 181.44 ca1 kg; Height 5 ft. 10 in. (177.80 cm) (R); Pain 7/10; 14:30 BP 125 / 63; Pulse 54; Resp 15; Pulse Ox 100% ; jl7 12:22 Body Mass Index 57.39 (181.44 kg, 177.80 cm) ca1 ED Course: 11:59 Patient arrived in ED. am2 11:59 Maynor Suh MD is Private Physician. am2 12:24 Triage completed. ca1 12:25 Arm band placed on right wrist. ca1 14:06 Briseida Clayton RN is Primary Nurse. jl7 14:06 Star Castle NP is PHCP. pm1 14:06 Prem Ng MD is Attending Physician. pm1 14:09 PHCP role handed off by Star Castle NP jr8 14:09 Jacskon Salcedo PA is PHCP. jr8 14:09 Star Castle [facility]. jr8 14:30 Patient has correct armband on for positive identification. Bed in low position. Call jl7 light in reach. Side rails up X 1. Pulse ox on. NIBP on. 15:30 No provider procedures requiring assistance completed. Patient did not have IV access jl7 during this emergency room visit. Administered Medications: 14:58 Not Given (Patient Refused): Atarax (hydrOXYzine) 50 mg PO once pm1 15:13 Drug: SOLU-Medrol (methylPREDNISolone sodium succinate) 80 mg Route: IM; Site: right jl7 deltoid; 15:15 Follow up: Response: Medication administered at discharge. jl7 Outcome: 15:00 Discharge ordered by MD. pm1 15:30 Discharged to home ambulatory. jl7 15:30 Condition: stable 15:30 Discharge instructions given to patient, Instructed on discharge instructions, follow up and referral plans. medication usage, Demonstrated understanding of instructions, follow-up care, medications, Prescriptions given X 1. 15:30 Patient left the ED. jl7 Signatures: Jackson Salcedo PA PA jr8 Star Castle NP REGIONAL SALES REPRESENTATIVE pm1 Briseida Clayton RN RN jl7 Alia Berkowitz am2 Berenice Shine RN RN ca1
--- NOTE | 2021-01-28 15:01 | EDPHYS ---
Physician Documentation [facility] Name: Ihsan Montoya Age: 50 yrs Sex: Male : 1970 Arrival Date: 01/28/2021 Time: 11:59 Bed 5 Private MD: Maynor Suh E ED Physician Prem Ng HPI: 01/28 14:35 This 50 yrs old Male presents to ER via Ambulatory with complaints of Rash. pm1 14:35 The patient's rash thought to be caused by Dermatitis. The rash is located on the right pm1 hand and left hand. The rash can be described as scaly. 14:35 Onset: The symptoms/episode began/occurred 2 month(s) ago. Associated signs and pm1 symptoms: Pertinent negatives: fever. Severity of symptoms: in the emergency department the symptoms have improved Pain is currently a 0 / 10. The patient has experienced similar episodes in the past, several times. The patient has not recently seen a physician. Patient seen in the ER here for the third time in the past month for the same concern, rash to hands and lower extremity. Patient presenting here today for the rash to bilateral hands. Patient reports improvement to skin in lower extremity since the last ER visit. Patient's rash improves while he is on steroids but return after prescription ends. Historical: - Allergies: 12:25 Narcan; "body fits"; ca1 - Home Meds: 12:25 carvedilol 6.25 mg Oral tab 1 tab 2 times per day [Active]; Eliquis 5 mg Oral tab 1 tab ca1 2 times per day [Active]; losartan 50 mg Oral tab 1 tab once daily [Active]; methadone 40 mg Oral TbSO 2 tab once daily [Active]; metformin 500 mg Oral tab 1 tab 2 times per day [Active]; spironolactone 25 mg Oral tab 1 tab once daily [Active]; Vitamin D2 50,000 unit Oral cap 1 cap once daily [Active]; omeprazole 40 mg Oral cpDR 1 cap once daily [Active]; - PMHx: 12:25 Anxiety; drug abuse; Diabetes - NIDDM; EDEMA; Hypertension; Obesity; Panic Attacks; PE; ca1 - Immunization history:: Client reports receiving the 2nd dose of the Covid vaccine, Client reports receiving the 1st dose of the Covid vaccine, Flu vaccine is not up to date. - Social history:: Smoking status: Patient reports the use of cigarette tobacco products, denies chronic smoking, but will smoke occasionally. ROS: 14:35 Constitutional: Negative for fever, chills, and weight loss, Cardiovascular: Negative pm1 for chest pain, palpitations, and edema, Respiratory: Negative for shortness of breath, cough, wheezing, and pleuritic chest pain, MS/Extremity: Negative for injury and deformity. 14:35 Skin: Positive for rash, of the right hand and left hand. 14:35 All other systems are negative. Exam: 14:35 Constitutional: This is a well developed, well nourished patient who is awake, alert, pm1 and in no acute distress. Head/Face: Normocephalic, atraumatic. 14:35 Eyes: Exam is negative for acute changes, Extraocular movements: intact throughout, Conjunctiva: no acute changes, no injection, Sclera: no acute changes, icterus, is not appreciated. 14:35 ENT: Mouth: Lips: normal, Oral mucosa: normal, pink and intact, moist. 14:35 Cardiovascular: Exam negative for acute changes, Rate: normal, Rhythm: regular, Pulses: no pulse deficits are appreciated. 14:35 Respiratory: Exam negative for acute changes, respiratory distress, shortness of breath. 14:35 Abdomen/GI: Inspection: obese Palpation: abdomen is soft and non-tender, in all quadrants. 14:35 Skin: Appearance: normal except for affected area, consistent with contact dermatitis or atopic dermatitis. 14:35 Neuro: Exam negative for acute changes, Orientation: is normal, Mentation: is normal, Motor: is normal, moves all fours. Vital Signs: 12:22 BP 105 / 74; Pulse 64; Resp 18 S; Temp 98(O); Pulse Ox 98% on 4 lpm NC; Weight 181.44 ca1 kg; Height 5 ft. 10 in. (177.80 cm) (R); Pain 7/10; 14:30 BP 125 / 63; Pulse 54; Resp 15; Pulse Ox 100% ; jl7 12:22 Body Mass Index 57.39 (181.44 kg, 177.80 cm) ca1 MDM: 14:09 Patient medically screened. jr8 14:58 Data reviewed: vital signs. Data interpreted: Pulse oximetry: on room air is 100 %. pm1 Interpretation: normal. Counseling: I had a detailed discussion with the patient and/or guardian regarding: the historical points, exam findings, and any diagnostic results supporting the discharge/admit diagnosis, the need for outpatient follow up, for definitive care, a resource efficiency manager, to return to the emergency department if symptoms worsen or persist or if there are any questions or concerns that arise at home. 01/28 15:02 Order name: Glucose, Ancillary Testing; Complete Time: 17:24 EDNV 01/28 14:41 Order name: Glucose Level; Complete Time: 14:50 pm1 Administered Medications: 14:58 Not Given (Patient Refused): Atarax (hydrOXYzine) 50 mg PO once pm1 15:13 Drug: SOLU-Medrol (methylPREDNISolone sodium succinate) 80 mg Route: IM; Site: right jl7 deltoid; 15:15 Follow up: Response: Medication administered at discharge. jl7 Disposition: 18:33 Co-signature as Attending Physician, Prem Ng MD I agree with the assessment and kdr plan of care. Disposition Summary: 01/28/21 15:00 Discharge Ordered Location: Home pm1 Problem: new pm1 Symptoms: have improved pm1 Condition: Stable pm1 Diagnosis - Rash and other nonspecific skin eruption pm1 Followup: pm1 - With: Emergency Department - When: As needed - Reason: Worsening of condition Followup: pm1 - With: Private Physician - When: 2 - 3 days - Reason: Recheck today's complaints, Continuance of care, Re-evaluation by your physician Discharge Instructions: - Discharge Summary Sheet pm1 - Rash, Adult pm1 - Atopic Dermatitis pm1 Forms: - Medication Reconciliation Form pm1 - Thank You Letter pm1 - Antibiotic Education pm1 - Prescription Opioid Use pm1 Prescriptions: - Prednisone 20 mg Oral Tablet - take 2 tablets by ORAL route once daily for 5 days; 10 tablet; Refills: 0, pm1 Product Selection Permitted Signatures: Dispatcher [employer] EDPrem Roy MD MD kdr Roszak, Josh, PA PA jr8 Star Castle, LUIS M CRITICAL CARE PHYSICIAN pm1 Briseida Clayton RN RN jl7 Berenice Shine RN RN ca1
[2021-01-28] MEDS ORDERED: METHYLPREDNISOLONE 125 MG INJ ONE (15:29)
[2021-01-28 15:57] VITALS: TEMP 98
[2021-01-28 15:59] VITALS: BP 125/63; O2SAT 100
== END 2021-01-28 15:30 | disposition home or self-care (01) ==
LOC: ER 11:55
DX: R21 Rash and other nonspecific skin eruption (principal); E11.9 Type 2 diabetes mellitus without complications; I10 Essential (primary) hypertension; F17.210 Nicotine dependence, cigarettes, uncomplicated; Z79.01 Long term (current) use of anticoagulants; Z88.5 Allergy status to narcotic agent
CPT/HCPCS: 82947; 96372; 99283; J2930

== ENCOUNTER 2021-02-14 14:41 | Emergency (ER) | payer OTHER ==
--- OUTSIDE RECORDS SUMMARY | 2021-02-14 14:45 | XMS REPORT | Continuity of Care Document ---
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[facility] - embolus embolus 00:00: Medical 00 [place] KEITH KEITH Disease Active 2018-[address] [facility] (obstructi (obstructi 2-14 [facility] - ve sleep ve sleep 00:00: Medica l apnea) apnea) 00 [place] Chronic Chronic Disease Active 2018-[address] [facility] narcotic narcotic 2-14 [facility] dependence dependence 00:00: Me dical 00 [place] Allergies, Adverse Reactions, Alerts Allergy Allergy Status Severity Reaction(s) Onset Inactive Treating Comm ents Source Name Type Date Date Clinician Naloxone Drug Active Other (See 2018-[address] [facility] Allergy Comments) 2-14 [facility] - 00:[facility]: Medical 00 [place] Family History Family Member Diagnosis Comments Start Date Stop Date Source Natural mother Stroke [facility] - [facility] Social History Social Habit Start Date Stop Date Quantity Comments Source History SDOH [facility] - Alcohol Binge Medical [place] [facility] Sex Assigned At [facility] History SDOH [facility] - Alcohol Std Drinks Medica l [place] Tobacco use and 2019-06-27 2019-06-27 Never used [facility] - exposure [facility]:00 [facility]00 [facility] Alcohol intake 2019-06-27 2019-06-27 Current [facility] es - 00:00:00 00:00:00 non-drinker of Medical Ce nter alcohol (finding) History SDOH 2019-06-25 2019-06-[address] [facility] - Alcohol Frequency 00:00:00 [facility]:00 [facility] Smoking Status Start Date Stop Date Source Heavy tobacco smoker 2019-06-27 00:00:[address] [facility] Medications Ordered Filled Start Stop Current [...] Comments Source Future Scheduled 2022-06-27 Lipid panel [facility] - Test 00:00:00 (procedure) [code = [facility] [id number]] Future Scheduled 2020-03-13 INFLUENZA VACCINE (#1) C [...] NOT 1092) ACCURATE CRE ATININE CLEARANCE IN [place] EDICTING GLOMERULAR FILT RATION RATE. ESTIMATED GFR [...] WBC 0-0 (BEAKER) (test code = 413) [id number] 22:41:00 Test Item Value Reference Range Interpretation Comments PARTIAL THROMBOPLASTIN TIME 41.6 seconds 22.5-36.0 H (BEAKER) (test code = 760) [id number] 13:52:00 Test Item Value Reference Range Interpretation Comments PARTIAL THROMBOPLASTIN TIME 35.3 seconds 22.5-36.0 (BEAKER) (test code = 760) HEMOGLOBIN [id number] 08:28:00 Test Item Value Reference Range Interpretation Comments HEMOGLOBIN A1C (BEAKER) (test code = 6.4 % 4.3-6.1 H 368) [id number] 07:29:00 Test Item Value Reference Range Interpretation Comments PHOSPHORUS (BEAKER) (test code = 4.4 mg/dL 2.3-4.7 604) [id number] 07:29:00 Test Item Value Reference Range Interpretation Comments MAGNESIUM (BEAKER) (test code = 2.1 mg/dL 1.6-2.6 627) BASIC METABOLIC [id number] 07:29:00 Test Item Value Reference Range Interpretation [...] NOT APPLICABLE FOR DIALYSIS PATIEN TS. LIPID [id number] 07:29:00 Test Item Value Reference Range Interpretation [...] 130-159 High 160-189 Very High >=190HEPATIC FUNCTION [id number] 07:29:00 Test Item Value Reference Range Interpretation [...] (test code = 19 U/L 6-55 347) [id number] 06:48:00 Test Item Value Reference Range Interpretation [...] WBC 0-0 (BEAKER) (test code = 413) [id number] 00:10:00 Test Item Value Reference Range Interpretation Comments PARTIAL THROMBOPLASTIN TIME 35.6 seconds 22.5-36.0 (BEAKER) (test code = 760) [id number] 17:10:00 Test Item Value Reference Range Interpretation Comments PARTIAL THROMBOPLASTIN TIME 32.4 seconds 22.5-36.0 (BEAKER) (test code = 760) Prior to initiating heparinPLATELET [id number] 17:02:00 Test Item Value Reference Range Interpretation Comments PLATELET COUNT (BEAKER) (test 170 K/CU MM 150-450 code = 756) HEMOGLOBIN [id number] 08:48:00 Test Item Value Reference Range Interpretation Comments HEMOGLOBIN A1C (BEAKER) (test code = 6.5 % 4.3-6.1 H 368) [id number] 06:10:00 Test Item Value Reference Range Interpretation Comments PHOSPHORUS (BEAKER) (test code = 4.1 mg/dL 2.3-4.7 604) [id number] 06:10:00 Test Item Value Reference Range Interpretation Comments MAGNESIUM (BEAKER) (test code = 2.2 mg/dL 1.6-2.6 627) BASIC METABOLIC [id number] 06:10:00 Test Item Value Reference Range Interpretation [...] NOT APPLICABLE FOR DIALYSIS PATIEN TS. LIPID [id number] 06:10:00 Test Item Value Reference Range Interpretation [...] 130-159 High 160-189 Very High >=190HEPATIC FUNCTION [id number] 06:10:00 Test Item Value Reference Range Interpretation [...] (test code = 19 U/L 6-55 347) [id number] 05:35:00 Test Item Value Reference Range Interpretation [...] mechanical heart valves.CBC W/PLT COUNT & AUTO [id number] 05:26:00 Test Item Value Reference Range Interpretation [...] 0-1 PERCENT (BEAKER) (test code = 2801) [id number] 09:48:00 Test Item Value Reference Range Interpretation Comments PARTIAL THROMBOPLASTIN TIME 71.3 seconds 22.5-36.0 H (BEAKER) (test code = 760) HEMOGLOBIN [id number] 09:40:00 Test Item Value Reference Range Interpretation Comments HEMOGLOBIN A1C (BEAKER) (test code = 6.5 % 4.3-6.1 H 368) POCT-GLUCOSE [id number] 07:32:00 Test Item Value Reference Range Interpretation Comments POC-GLUCOSE METER 120 mg/dL 70-110 H : TESTED A T [facility] 67[address] (BEJASON) (test code = LOLY [place], 1538) [address]: Property Man/Techni jossue ID = [id number] for RITA CHARLES TROPONIN [id number] 02:29:00 Test Item Value Reference Range Interpretation [...] failure, acidosis, acute neurological disease, and persistent tachyarrhythmia.[id number] 02:19:00 Test Item Value Reference Range Interpretation Comments MAGNESIUM (BEAKER) 2.1 mg/dL 1.6-2.6 Specimen slightly (test code = 627) hemolyzed [id number] 02:19:00 Test Item Value Reference Range Interpretation Comments PHOSPHORUS (BEAKER) 3.3 mg/dL 2.3-4.7 Specimen slightly (test code = 604) hemolyzed BASIC METABOLIC [id number] 02:19:00 Test Item Value Reference Range Interpretation [...] NOT APPLICABLE FOR DIALYSIS PATIEN TS. LIPID [id number] 02:19:00 Test Item Value Reference Range Interpretation [...] 130-159 High 160-189 Very High >=190HEPATIC FUNCTION [id number] 02:19:00 Test Item Value Reference Range Interpretation [...] Specimen slightly (test code = 347) hemolyzed [id number] 02:01:00 Test Item Value Reference Range Interpretation Comments PARTIAL THROMBOPLASTIN TIME 46.5 seconds 22.5-36.0 H (BEAKER) (test code = 760) Prior to initiating heparinPOCT-GLUCOSE [id number] 01:59:00 Test Item Value Reference Range Interpretation Comments POC-GLUCOSE METER 126 mg/dL 70-110 H : TESTED A T [facility] 6720 (BEAKER) (test code [facility], = 1538) 17757: Property Man/Techni jossue ID = [id number] for ELEANOR ORANTES CBC W/PLT COUNT & AUTO [id number] 01:57:00 Test Item Value Reference Range Interpretation [...] % 0-1 PERCENT (BEAKER) (test code = 0378)
--- NOTE | 2021-02-14 18:25 | ER ---
Nurse's Notes [facility] Name: Ihsan Montoya Age: 50 yrs Sex: Male : 1970 Arrival Date: 02/14/2021 Time: 14:53 Bed Waiting Private MD: Diagnosis: Presentation: 02/14 15:20 Chief complaint: Patient states: My PCP sent me her or my L leg. It's swollen, red, and ca1 leaking. Was here 2 - 3 weeks ago, was prescribed steroids for my leg but it did not get better. Coronavirus screen: Client denies travel out of the [place] in the last 14 days. At this time, the client does not indicate any symptoms associated with coronavirus-19. Ebola Screen: Patient negative for fever greater than or equal to 101.5 degrees Fahrenheit, and additional compatible Ebola Virus Disease symptoms Patient denies exposure to infectious person. Patient denies travel to an Ebola-affected area in the 21 days before illness onset. No symptoms or risks identified at this time. Initial Sepsis Screen: Does the patient meet any 2 criteria? No. Patient's initial sepsis screen is negative. Does the patient have a suspected source of infection? No. Patient's initial sepsis screen is negative. Risk Assessment: Do you want to hurt yourself or someone else? Patient reports no desire to harm self or others. Onset of symptoms was February 14, 2021. 15:20 Method Of Arrival: Wheelchair ca1 15:20 Acuity: STEFAN 3 ca1 Historical: - Allergies: 15:21 Narcan; "body fits"; ca1 - Home Meds: 15:21 carvedilol 6.25 mg Oral tab 1 tab 2 times per day [Active]; Eliquis 5 mg Oral tab 1 tab ca1 2 times per day [Active]; losartan 50 mg Oral tab 1 tab once daily [Active]; metformin 500 mg Oral tab 1 tab 2 times per day [Active]; methadone 40 mg Oral TbSO 2 tab once daily [Active]; omeprazole 40 mg Oral cpDR 1 cap once daily [Active]; Vitamin D2 50,000 unit Oral cap 1 cap once daily [Active]; spironolactone 25 mg Oral tab 1 tab once daily [Active]; - PMHx: 15:21 Anxiety; Diabetes - NIDDM; drug abuse; EDEMA; Hypertension; Obesity; Panic Attacks; PE; ca1 - Immunization history:: Client reports receiving the 2nd dose of the Covid vaccine, Client reports receiving the 1st dose of the Covid vaccine. - Social history:: Smoking status: Patient denies any tobacco usage or history of. Assessment: 18:23 Reassessment: Registration Michelle states, "Pt left 30 mins ago". ca1 Vital Signs: 15:20 BP 124 / 63; Pulse 66; Resp 18; Temp 98.1; Pulse Ox 96% on R/A; Weight 190.51 kg (R); ca1 Height 5 ft. 11 in. (180.34 cm) (R); 15:20 Body Mass Index 58.58 (190.51 kg, 180.34 cm) ca1 ED Course: 14:53 Patient arrived in ED. mr 15:21 Triage completed. ca1 15:21 Arm band placed on right wrist. ca1 Administered Medications: No medications were administered Outcome: 18:24 Patient left the ED. ca1 Signatures: Michelle Beckham mr Berenice Shine, RN RN ca1
== END 2021-02-14 18:24 | disposition left against medical advice (07) ==
LOC: ER 14:41
DX: Z53.21 Procedure and treatment not carried out due to patient leaving prior to being seen by health care provider (principal)
CPT/HCPCS: 99281

== ENCOUNTER 2021-10-04 11:25 | Emergency (ER) | payer OTHER ==
--- OUTSIDE RECORDS SUMMARY | 2021-10-04 11:29 | XMS REPORT | Continuity of Care Document ---
:1970 Author Organization [facility] t Address [address] [place] [address] Dr. [address]. [address] [place] [address] Care Team Providers Name Role Phone PCP, DOES NOT HAVE A Primary Care Physician Unavailable Eliu LIGHT Attending Clinician Unavailable Leandro DYKES, K Attending Clinician Unavailable Eliu Light MD Attending Clinician Gurinder Gamble PT Attending Clinician Unavailable Jaycee Mckee MD Attending Clinician Doctor Unassigned, Name Attending Clinician Unavailable Dionisio MORALES Attending Clinician JAYCEE MCKEE Attending Clinician Unavailable He VASQUEZ Attending Clinician Unavailable JOHN Attending Clinician Unavailable OMHELENA Admitting Clinician Unavailable Payers Payer Name Policy Type Policy Number Effective Date Expiration Date Trudi bro [facility] [id number] 2019 00:00:00 PLUS Problems Condition Condition Condition Status Onset Resolution Last Treating Co mments Source Name Details Category Date Date Treatment Clinician Date Morbid Morbid Disease Active Univers obesity obesity 4-21 [place] index 00 [place] of of Branch 40.0-49.9 40.0-49.9 Morbid Morbid Disease Active Univers obesity obesity 4-21 [place] body [place] mass [place] mass index 00 Me dical of 50 or of 50 or Branch higher higher Obesity Obesity Disease Active Univers 9-10 ity of 00:00: [place] 00 Medical Branch Methadone Methadone Disease Active Uni vers overdose overdose - ity of 00:00: [place] 00 Medical Branch Allergies, Adverse Reactions, Alerts Allergy Allergy Status Severity Reaction(s) Onset Inactive Treating Comm ents Source Name Type Date Date Clinician NALOXONE DRUG Active Other-Cmnt Univ ers HCL INGREDI 4-21 ity of 00:00: [place] 00 Medical Branch Naloxone Propensi Active Other - See Shaking Univers Hcl ty to comments 4-21 ity of adverse 00:00: [place] reaction 00 Medical s Branch NALOXONE Allergy Active [facility] Social History Social Habit Start Date Stop Date Quantity Comments Source Exposure to Not sure [facility] SARS-CoV-2 (event) Medica l Branch Alcohol intake 2016-03-23 2016-03-23 0 /d [facility] 00:00:00 00:00:00 [facility] Cigarette pack-years 2016-03-21 2016-03-21 [facility] 00:00:00 00:00:00 [facility] Cigarettes smoked 2016-03-21 2016-03-21 [facility] current (pack per 00:00:00 00:00:00 Medical Branch day) - Reported Sex Assigned At [birth year] [facility] 00:00:00 00:00:00 [facility] Smoking Status Start Date Stop Date Source Current every day smoker 2016-03-21 00:00:00 [facility] Medications Ordered Filled Start Stop Current Ordering Indication Dosage Frequency Signature Comments Components Source Medication Medication Date Date Medication? Clinician (SIG) Name Name bryce 2020-07 Yes [id number] Apply to Univers ne 0-04 area(s) 2 ity of acetonide 00:00: (two) [place] 0.1 % 00 times Medical ointment daily. Moose bryce 2020-07 Yes [id number] Apply to Univers ne 0-04 area(s) 2 ity of acetonide 00:00: (two) [place] 0.1 % 00 times Medical ointment daily. Moose wu 2020-07 Yes [id number] Apply to Univers ne 0-04 area(s) 2 ity of acetonide 00:00: (two) [place] 0.1 % 00 times Medical ointment daily. Moose wu 2020-07 Yes [id number] Apply to Univers ne 0-04 area(s) 2 ity of acetonide 00:00: (two) [place] 0.1 % 00 times Medical ointment daily. Branch vanessaolo 2020-07 Yes [id number] Apply to Univers ne 0-04 area(s) 2 ity of acetonide 00:00: (two) [place] 0.1 % 00 times Medical ointment daily. Branch triamcinolo 2020-07 Yes [id number] Apply to Univers ne 0-04 area(s) 2 ity of acetonide 00:00: (two) [place] 0.1 % 00 times Medical ointment daily. Branch triamcinolo 2020-07 Yes [id number] Apply to Univers ne 0-04 area(s) 2 ity of acetonide 00:00: (two) [place] 0.1 % 00 times Medical ointment daily. Branch triamcinolo 2020-07 Yes [id number] Apply to Univers ne 0-04 area(s) 2 ity of acetonide 00:00: (two) [place] 0.1 % 00 times Medical ointment daily. Branch doxycycline Yes [id number] 100mg Take 1 Univers monohydrate 9-28 capsule by it y of 100 mg 00:00: mouth 2 [place] capsule 00 (two) Medical times Branch daily. triamcinolo Yes [id number] Apply to Univers ne 9-28 area(s) 2 ity of acetonide 00:00: (two) [place] 0.1 % 00 times Medical ointment daily. Branch mupirocin 2 Yes [id number] Apply to Univers % ointment 9-28 area(s) 3 ity of 00:00: (three) [place] 00 times Medical daily. Branch doxycycline Yes [id number] 100mg Take 1 Univers monohydrate 9-28 capsule by it y of 100 mg 00:00: mouth 2 [place] capsule 00 (two) Medical times Branch daily. triamcinolo Yes [id number] Apply to Univers ne 9-28 area(s) 2 ity of acetonide 00:00: (two) [place] 0.1 % 00 times Medical ointment daily. Branch mupirocin 2 Yes [id number] Apply to Univers % ointment 9-28 area(s) 3 ity of 00:00: (three) [place] 00 times Medical daily. Branch doxycycline Yes [id number] 100mg Take 1 Univers monohydrate 9-28 capsule by it y of 100 mg 00:00: mouth 2 [place] capsule 00 (two) Medical times Branch daily. triamcinolo 2020-0 Yes [id number] Apply to Univers ne 9-28 area(s) 2 ity of acetonide 00:00: (two) [place] 0.1 % 00 times Medical ointment daily. Branch mupirocin 2 2020-0 Yes [id number] Apply to Univers % ointment 9-28 area(s) 3 ity of 00:00: (three) [place] 00 times Medical daily. Branch doxycycline 2020-0 Yes [id number] 100mg Take 1 Univers monohydrate 9-28 capsule by it y of 100 mg 00:00: mouth 2 [place] capsule 00 (two) Medical times Branch daily. triamcinolo 2020-0 Yes [id number] Apply to Univers ne 9-28 area(s) 2 ity of acetonide 00:00: (two) [place] 0.1 % 00 times Medical ointment daily. Branch mupirocin 2 2020-0 Yes [id number] Apply to Univers % ointment 9-28 area(s) 3 ity of 00:00: (three) [place] 00 times Medical daily. Branch doxycycline 2020-0 Yes [id number] 100mg Take 1 Univers monohydrate 9-28 capsule by it y of 100 mg 00:00: mouth 2 [place] capsule 00 (two) Medical times Branch daily. triamcinolo 2020-0 Yes [id number] Apply to Univers ne 9-28 area(s) 2 ity of acetonide 00:00: (two) [place] 0.1 % 00 times Medical ointment daily. Branch mupirocin 2 2020-0 Yes [id number] Apply to Univers % ointment 9-28 area(s) 3 ity of 00:00: (three) [place] 00 times Medical daily. Branch doxycycline 2020-0 Yes [id number] 100mg Take 1 Univers monohydrate 9-28 capsule by it y of 100 mg 00:00: mouth 2 [place] capsule 00 (two) Medical times Branch daily. triamcinolo 2020-0 Yes [id number] Apply to Univers ne 9-28 area(s) 2 ity of acetonide 00:00: (two) [place] 0.1 % 00 times Medical ointment daily. Branch mupirocin 2 2020-0 Yes [id number] Apply to Univers % ointment 9-28 area(s) 3 ity of 00:00: (three) [place] 00 times Medical daily. Branch doxycycline 2020-0 Yes [id number] 100mg Take 1 Univers monohydrate 9-28 capsule by it y of 100 mg 00:00: mouth 2 [place] capsule 00 (two) Medical times Branch daily. triamcinolo 2020-0 Yes [id number] Apply to Univers ne 9-28 area(s) 2 ity of acetonide 00:00: (two) [place] 0.1 % 00 times Medical ointment daily. Branch mupirocin 2 2020-0 Yes [id number] Apply to Univers % ointment 9-28 area(s) 3 ity of 00:00: (three) [place] 00 times Medical daily. Branch doxycycline 2020-0 Yes [id number] 100mg Take 1 Univers monohydrate 9-28 capsule by it y of 100 mg 00:00: mouth 2 [place] capsule 00 (two) Medical times Branch daily. triamcinolo 2020-0 Yes [id number] Apply to Univers ne 9-28 area(s) 2 ity of acetonide 00:00: (two) [place] 0.1 % 00 times Medical ointment daily. Branch mupirocin 2 2020-0 Yes [id number] Apply to Univers % ointment 9-28 area(s) 3 ity of 00:00: (three) [place] 00 times Medical daily. Branch doxycycline 2020-0 Yes [id number] 100mg Take 1 Univers monohydrate 9-28 capsule by it y of 100 mg 00:00: mouth 2 [place] capsule 00 (two) Medical times Branch daily. triamcinolo 2020-0 Yes [id number] Apply to Univers ne 9-28 area(s) 2 ity of acetonide 00:00: (two) [place] 0.1 % 00 times Medical ointment daily. Branch mupirocin 2 2020-0 Yes [id number] Apply to Univers % ointment 9-28 area(s) 3 ity of 00:00: (three) [place] 00 times Medical daily. Branch doxycycline 2020-0 Yes [id number] 100mg Take 1 Univers monohydrate 9-28 capsule by it y of 100 mg 00:00: mouth 2 [place] capsule 00 (two) Medical times Branch daily. triamcinolo Yes [id number] Apply to Univers ne -28 area(s) 2 ity of acetonide 00:00: (two) [place] 0.1 % 00 times Medical ointment daily. Branch mupirocin 2 Yes [id number] Apply to Univers % ointment 04-09 area(s) 3 ity of 00:00: (three) [place] 00 times Medical daily. Branch doxycycline Yes [id number] 100mg Take 1 Univers monohydrate 04-09 capsule by it y of 100 mg 00:00: mouth 2 [place] capsule 00 (two) Medical times Branch daily. triamcinolo Yes [id number] Apply to Univers ne 9- area(s) 2 ity of acetonide 00:00: (two) [place] 0.1 % 00 times Medical ointment daily. Branch mupirocin 2 Yes [id number] Apply to Univers % ointment 04-09 area(s) 3 ity of 00:00: (three) [place] 00 times Medical daily. Branch METHADONE 0 Yes Take by Univ ers HCL 9-11 mouth. ity of (METHADONE 14:41: [place] ORAL) 54 Medical Branch METHADONE 2015-0 Yes Take by Univ ers HCL 9-11 mouth. ity of (METHADONE 14:41: [place] ORAL) Medical Branch METHADONE 2015-0 Yes Take by Univ ers HCL 9-11 mouth. ity of (METHADONE 14:41: [place] ORAL) Medical Branch METHADONE 2016-0 Yes Take by Univ ers HCL 9-11 mouth. ity of (METHADONE 14:41: [place] ORAL) 54 Medical Branch METHADONE 2016-0 Yes Take by Univ ers HCL 9-11 mouth. ity of (METHADONE 14:41: [place] ORAL) Medical Branch METHADONE 2016-0 Yes Take by Univ ers HCL 9-11 mouth. ity of (METHADONE 14:41: [place] ORAL) 54 Medical Branch METHADONE 2016-0 Yes Take by Univ ers HCL 9-11 mouth. ity of (METHADONE 14:41: [place] ORAL) Medical Branch METHADONE 2016-0 Yes Take by Univ ers HCL 9-11 mouth. ity of (METHADONE 14:41: [place] ORAL) Medical Branch METHADONE 2016-0 Yes Take by Univ ers HCL 9-11 mouth. ity of (METHADONE 14:41: [place] ORAL) 54 Medical Branch METHADONE 2016-0 Yes Take by Univ ers HCL 9-11 mouth. ity of (METHADONE 14:41: [place] ORAL) 54 Medical Branch METHADONE 2016-0 Yes Take by Univ ers HCL 9-11 mouth. ity of (METHADONE 14:41: [place] ORAL) 54 Medical Branch Immunizations Ordered Filled Immunization Date Status Comments [facility] e Immunization Name Name SARS-COV-2 COVID-19 2020-10-25 Completed Unive rsity of PFIZER VACCINE 00:00:00 [facility] SARS-COV-2 COVID-19 2020-10-25 Completed Unive rsity of PFIZER VACCINE 00:00:00 [facility] SARS-COV-2 COVID-19 2020-10-25 Completed Unive rsity of PFIZER VACCINE 00:00:00 [facility] SARS-COV-2 COVID-19 2020-10-25 Completed Unive rsity of PFIZER VACCINE 00:00:00 [facility] SARS-COV-2 COVID-19 2020-10-25 Completed Unive rsity of PFIZER VACCINE 00:00:00 [facility] SARS-COV-2 COVID-19 2020-10-25 Completed Unive rsity of PFIZER VACCINE 00:00:00 [facility] SARS-COV-2 COVID-19 2020-10-25 Completed Unive rsity of PFIZER VACCINE 00:00:00 [facility] SARS-COV-2 COVID-19 2020-10-25 Completed Unive rsity of PFIZER VACCINE 00:00:00 [facility] SARS-COV-2 COVID-19 2020-10-25 Completed Unive rsity of PFIZER VACCINE 00:00:00 [facility] SARS-COV-2 COVID-19 2020-10-25 Completed Unive rsity of PFIZER VACCINE 00:00:00 [facility] SARS-COV-2 COVID-19 2020-10-25 Completed Unive rsity of PFIZER VACCINE 00:00:00 [facility] SARS-COV-2 COVID-19 2020-10-04 Completed Unive rsity of PFIZER VACCINE 00:00:00 [facility] SARS-COV-2 COVID-19 2020-10-04 Completed Unive rsity of PFIZER VACCINE 00:00:00 [facility] SARS-COV-2 COVID-19 2020-10-04 Completed Unive rsity of PFIZER VACCINE 00:00:00 [facility] SARS-COV-2 COVID-19 2020-10-04 Completed Unive rsity of PFIZER VACCINE 00:00:00 [facility] SARS-COV-2 COVID-19 2020-10-04 Completed Unive rsity of PFIZER VACCINE 00:00:00 [facility] SARS-COV-2 COVID-19 2020-10-04 Completed Unive rsity of PFIZER VACCINE 00:00:00 [facility] SARS-COV-2 COVID-19 2020-10-04 Completed Unive rsity of PFIZER VACCINE 00:00:00 [facility] SARS-COV-2 COVID-19 2020-10-04 Completed Unive rsity of PFIZER VACCINE 00:00:00 [facility] SARS-COV-2 COVID-19 2020-10-04 Completed Unive rsity of PFIZER VACCINE 00:00:00 [facility] SARS-COV-2 COVID-19 2020-10-04 Completed Unive rsity of PFIZER VACCINE 00:00:00 [facility] SARS-COV-2 COVID-19 2020-10-04 Completed Unive rsity of PFIZER VACCINE 00:00:00 [facility] Procedures Procedure Date / Time Performed Performing Clinician [facility] e ASSIGNMENT OF BENEFITS 2021-04-15 14:33:06 Doctor Unassigned, No [facility] Encounters Start End Encounter Admission Attending Care Care Encounter Source Date/Time Date/Time Type Type Clinicians Facility Department ID 2021-05-16 2021-05-16 Outpatient R NADEGE [facility] [id number] Univers 09:40:00 09:40:00 VALE allen [facility] 2021-05-16 2021-05-16 Outpatient R [facility] [id number] Univers 09:40:00 09:40:00 [id number] itclement [facility] 2021-05-14 2021-05-14 Ancillary Lisa Reeves [facility] 1.2.840 .114 [id number] Univers 10:02:47 11:02:47 Visit [place] [id number] [id number] [phone] La dical NAL 179 [facility] 2021-05-14 2021-05-14 Outpatient [facility] [id number] Univers 10:20:00 10:20:00 [id number] ity [facility] 2021-05-09 2021-05-09 Ancillary Lisa Reeves [facility] 1.2.840 .114 [id number] Univers 13:02:53 13:48:58 Visit [place] [id number] ity [facility] [id number] [phone] La dical NAL 179 [facility] 2021-05-09 2021-05-09 [facility] [id number] Univers 13:00:00 13:48:58 VALE ity [facility] 2021-05-09 2021-05-09 Outpatient R [facility] [id number] Univers 13:00:00 13:00:00 [id number] ity [facility] 2021-05-07 2021-05-07 Ancillary Lisa Reeves [facility] 1.2.840 .114 [id number] Univers 09:51:46 11:00:21 Visit [place] [id number] ity [facility] [id number] [phone] La dical nal 179 [facility] 2021-05-07 2021-05-07 Outpatient R [facility] [id number] Univers 10:20:00 10:20:00 [id number] ity [facility] 2021-05-02 2021-05-02 Ancillary Lisa Reeves [facility] 1.2.840 .114 [id number] Univers 13:54:55 14:54:55 Visit [place] [id number] ity of [id number] [id number] La dical nal 179 [facility] 2021-05-02 2021-05-02 Outpatient [facility] [id number] Univers 09:00:00 09:00:00 [id number] ity of [facility] 2021-04-30 2021-04-30 Ancillary Lisa Reeves [facility] 1.2.840 .114 [id number] Univers 09:20:25 10:20:25 Visit [place] [id number] ity of [place] [id number] [id number] La dical nal 179 [facility] 2021-04-30 2021-04-30 Outpatient [facility] [id number] Univers 09:20:00 09:20:00 [id number] ity of [facility] 2021 2021 Outpatient [facility] [id number] Univers 08:20:00 08:20:00 [id number] ity of [facility] 2021-04-23 2021-04-23 Ancillary Gurinder Gamble Ngoc [facility] 1 .2.840.114 [id number] Univers 14:31:49 17:41:33 Visit [place] [id number] ity of [id number] [phone] La dical nal 179 [facility] 2021-04-23 2021-04-23 Outpatient [facility] [id number] Univers 14:20:00 14:20:00 [id number] ity of [facility] 2021-04-18 2021-04-18 Outpatient [facility] [id number] Univers 08:40:00 08:40:00 ity of [facility] 2021-04-15 2021-04-16 Ancillary Gurinder GambleMoraa [facility] 1 .2.840.114 [id number] Univers 09:30:06 08:00:09 Visit Jonathan Mckee [id number] ity of [place] [id number] [place] Professio [phone] La dical nal 179 [facility] 2021-04-16 2021-04-16 Telephone Jonathan Mckee [facility] 1.2.840.114 [id number] Univers 00:00:00 00:00:00 Jaycee MULTISPEC [id number] ity [id number] C[place] [phone] [facility] [address] [place] [facility] 2021-04-15 2021-04-15 Outpatient R [facility] [id number] Univers 09:00:00 09:00:00 [id number] ity of [facility] 2021-04-15 2021-04-15 Orders Doctor [place] 1.2.840.114 [id number] Univers 00:00:00 00:00:00 Only Unassigned, [place] [id number] ity of [place] [facility] [id number] K[place] as [id number] [facility] 009 Branch 2021-04-15 2021-04-15 Telephone TANNER Nichole 1.2.840.[id number] [facility] 00:00:00 [facility]:00[facility] [id number] ity of CL[place]ICS [id number] [phone] [facility] 027 Branch 2021-04-09 2021-04-09 Office Kadi Nichole [facility] 1.2.840.11 [id number] Univers 14:35:44 15:17:00 Visit Jonathan Mckee MULTISPEC 350.1.13.10 ity [id number] [id number] [address] [facility] 2021-04-09 2021-04-09 Outpatient R JONATHAN MCKEE [facility] [id number] Univers 14:30:00 15:17:00 ity of [facility] 2020-09-20 2020-09-20 Outpatient R PEDRO [facility] [id number] Univers 16:40:00 16:40:00 LUPE [facility] 2006-11-23 2006-11-23 Outpatient [facility] [id number] Univers 00:00:00 00:00:00 [id number] [facility] Results Test Description Test Time Test Comments [...] NOT 1092) ACCURATE CRE ATININE CLEARANCE IN AR EDICTING GLOMERULAR FILT RATION RATE. ESTIMATED GFR [...] WBC 0-0 (BEAKER) (test code = 413) [id number] 22:41:00 Test Item Value Reference Range Interpretation Comments PARTIAL THROMBOPLASTIN TIME 41.6 seconds 22.5-36.0 H (BEAKER) (test code = 760) [id number] 13:52:00 Test Item Value Reference Range Interpretation Comments PARTIAL THROMBOPLASTIN TIME 35.3 seconds 22.5-36.0 (BEAKER) (test code = 760) HEMOGLOBIN [id number] 08:28:00 Test Item Value Reference Range Interpretation Comments HEMOGLOBIN A1C (BEAKER) (test code = 6.4 % 4.3-6.1 H 368) [id number] 07:29:00 Test Item Value Reference Range Interpretation Comments PHOSPHORUS (BEAKER) (test code = 4.4 mg/dL 2.3-4.7 604) [id number] 07:29:00 Test Item Value Reference Range Interpretation Comments MAGNESIUM (BEAKER) (test code = 2.1 mg/dL 1.6-2.6 627) BASIC METABOLIC [id number] 07:29:00 Test Item Value Reference Range Interpretation [...] NOT APPLICABLE FOR DIALYSIS PATIEN TS. LIPID [id number] 07:29:00 Test Item Value Reference Range Interpretation [...] 130-159 High 160-189 Very High >=190HEPATIC FUNCTION [id number] 07:29:00 Test Item Value Reference Range Interpretation [...] (test code = 19 U/L 6-55 347) [id number] 06:48:00 Test Item Value Reference Range Interpretation Comments PARTIAL THROMBOPLASTIN TIME 40.1 seconds 22.5-36.0 H (BEAKER) (test code = 760) 6 hours after starting heparin infusion and as indicated per sliding scaleCBC (HEMOGRAM ONLY)2019-06-27 06:46:00 Test Item Value Reference [...] WBC 0-0 (BEAKER) (test code = 413) [id number] 00:10:00 Test Item Value Reference Range Interpretation Comments PARTIAL THROMBOPLASTIN TIME 35.6 seconds 22.5-36.0 (BEAKER) (test code = 760) [id number] 17:10:00 Test Item Value Reference Range Interpretation Comments PARTIAL THROMBOPLASTIN TIME 32.4 seconds 22.5-36.0 (BEAKER) (test code = 760) Prior to initiating heparinPLATELET [id number] 17:02:00 Test Item Value Reference Range Interpretation Comments PLATELET COUNT (BEAKER) (test 170 K/CU MM 150-450 code = 756) HEMOGLOBIN [id number] 08:48:00 Test Item Value Reference Range Interpretation Comments HEMOGLOBIN A1C (BEAKER) (test code = 6.5 % 4.3-6.1 H 368) [id number] 06:10:00 Test Item Value Reference Range Interpretation Comments PHOSPHORUS (BEAKER) (test code = 4.1 mg/dL 2.3-4.7 604) [id number] 06:10:00 Test Item Value Reference Range Interpretation Comments MAGNESIUM (BEAKER) (test code = 2.2 mg/dL 1.6-2.6 627) BASIC METABOLIC [id number] 06:10:00 Test Item Value Reference Range Interpretation [...] NOT APPLICABLE FOR DIALYSIS PATIEN TS. LIPID [id number] 06:10:00 Test Item Value Reference Range Interpretation [...] 130-159 High 160-189 Very High >=190HEPATIC FUNCTION [id number] 06:10:00 Test Item Value Reference Range Interpretation [...] (test code = 19 U/L 6-55 347) [id number] 05:35:00 Test Item Value Reference Range Interpretation [...] mechanical heart valves.CBC W/PLT COUNT & AUTO [id number] 05:26:00 Test Item Value Reference Range Interpretation [...] 0-1 PERCENT (BEAKER) (test code = 2801) [id number] 09:48:00 Test Item Value Reference Range Interpretation Comments PARTIAL THROMBOPLASTIN TIME 71.3 seconds 22.5-36.0 H (BEAKER) (test code = 760) HEMOGLOBIN [id number] 09:40:00 Test Item Value Reference Range Interpretation Comments HEMOGLOBIN A1C (BEJASON) (test code = 6.5 % 4.3-6.1 H 368) POCT-GLUCOSE [id number] 07:32:00 Test Item Value Reference Range Interpretation Comments POC-GLUCOSE METER 120 mg/dL 70-110 H : TESTED A T [facility] 6720 (JEN) (test code = LOLY [place], 1538) 84311: Security Investigator/Techni jossue ID = [id number] for RITA CHARLES TROPONIN [id number] 02:29:00 Test Item Value Reference Range Interpretation Comments TROPONIN I (JEN) (test code = 0.68 ng/mL 0.00-0.03 397) [...] failure, acidosis, acute neurological disease, and persistent tachyarrhythmia.LIPID [id number] 02:19:00 Test Item Value Reference Range Interpretation [...] 130-159 High 160-189 Very High >=190HEPATIC FUNCTION [id number] 02:19:00 Test Item Value Reference Range Interpretation [...] Specimen slightly (test code = 347) hemolyzed [id number] 02:19:00 Test Item Value Reference Range Interpretation Comments MAGNESIUM (BEAKER) 2.1 mg/dL 1.6-2.6 Specimen slightly (test code = 627) hemolyzed [id number] 02:19:00 Test Item Value Reference Range Interpretation Comments PHOSPHORUS (BEAKER) 3.3 mg/dL 2.3-4.7 Specimen slightly (test code = 604) hemolyzed BASIC METABOLIC [id number] 02:19:00 Test Item Value Reference Range Interpretation [...] S NOT APPLICABLE FOR DIALYSIS PATIEN TS. [id number] 02:01:00 Test Item Value Reference Range Interpretation Comments PARTIAL THROMBOPLASTIN TIME 46.5 seconds 22.5-36.0 H (BEAKER) (test code = 760) Prior to initiating heparinPOCT-GLUCOSE [id number] 01:59:00 Test Item Value Reference Range Interpretation Comments POC-GLUCOSE METER 126 mg/dL 70-110 H : TESTED A T [facility] 6720 (BEAKER) (test code [facility], = 1538) 76092: Security Investigator/Techni jossue ID = [id number] for ELEANOR ORANTES CBC W/PLT COUNT & AUTO [id number] 01:57:00 Test Item Value Reference Range Interpretation [...] % 0-1 PERCENT (BEAKER) (test code = 6865)
[2021-10-04] MEDS ORDERED: ACETAMINOPHEN 500 MG TAB ONE (12:34)
--- NOTE | 2021-10-04 14:08 | RAD REPORT ---
EXAM DESCRIPTION: RAD - Foot Right 3 View - 10/04/2021 1:35 pm CLINICAL HISTORY: PAIN COMPARISON: Foot Right 3 View dated 09/28/2014 FINDINGS: No fracture, dislocation or periosteal reaction. The patient has previously detailed proxi mal fifth metatarsal fracture site is identified. There is bony remodeling and what appears to be com plete bony union. Recurrent fracture at this site is not identifiable. Patient has very minimal spurring at the Achilles and plantar tendon attachments. Soft tissues appear edematous but there is no air or foreign body in the soft tissues. IMPRESSION: No acute or recurrent right foot fracture identified. No acute bone or joint finding. Soft tissue edema is evident with no air or foreign body in the soft tissues.
--- NOTE | 2021-10-04 14:20 | EDPHYS ---
Physician Documentation [facility] [place] Name: Ihsan Montoya Age: 51 yrs Sex: Male : 1970 Arrival Date: 10/04/2021 Time: 11:30 Bed 18 Private MD: ED Physician Angel Thomas HPI: 10/04 12:35 This 51 yrs old Male presents to ER via Ambulatory with complaints of Leg Swelling - cp Leaking fluid,left, Foot Injury - Right. 12:35 The patient presents with pain, that is acute. The complaints affect the lateral aspect cp of right foot. Context: resulted from an unknown cause, the patient can fully bear weight, the patient is able to ambulate, with moderate difficulty, Problem is a result from a previous injury: No. Onset: The symptoms/episode began/occurred 2 week(s) ago. 12:35 Associated signs and symptoms: Pertinent negatives calf tenderness, fever. cp 12:35 Patient reports concern for infection to left lower leg as he reports skin drainage, cp discoloration. Historical: - Allergies: 12:12 Narcan; "body fits"; ph - Home Meds: 12:12 carvedilol 6.25 mg Oral tab 1 tab 2 times per day [Active]; Eliquis 5 mg Oral tab 1 tab ph 2 times per day [Active]; losartan 50 mg Oral tab 1 tab once daily [Active]; metformin 500 mg Oral tab 1 tab 2 times per day [Active]; methadone 40 mg Oral TbSO 2 tab once daily [Active]; omeprazole 40 mg Oral cpDR 1 cap once daily [Active]; spironolactone 25 mg Oral tab 1 tab once daily [Active]; Vitamin D2 50,000 unit Oral cap 1 cap once daily [Active]; - PMHx: 12:12 Anxiety; Diabetes - NIDDM; drug abuse; EDEMA; Hypertension; Obesity; Panic Attacks; PE; ph - Immunization history:: Adult Immunizations up to date. - Social history:: Smoking status: Patient denies any tobacco usage or history of. ROS: 12:40 Constitutional: Negative for body aches, chills, fever, poor PO intake. cp 12:40 Eyes: Negative for injury, pain, redness, and discharge. cp 12:40 Cardiovascular: Negative for chest pain. 12:40 Respiratory: Negative for shortness of breath, wheezing. 12:40 MS/extremity: Positive for pain, of the lateral aspect of right foot. 12:40 Skin: Positive for discoloration, erythema, swelling, of the anterior aspect of left lower leg. 12:40 All other systems are negative. Exam: 12:45 Constitutional: The patient appears in no acute distress, alert, awake, cp non-diaphoretic, non-toxic, well developed, well nourished, obese. 12:45 Head/Face: Normocephalic, atraumatic. cp 12:45 Eyes: Periorbital structures: appear normal, Conjunctiva: normal, no exudate, no injection, Lids and lashes: appear normal, bilaterally. 12:45 ENT: External ear(s): are unremarkable, Nose: is normal, Mouth: Lips: moist, Posterior pharynx: Airway: no evidence of obstruction, patent. 12:45 Chest/axilla: Inspection: normal. 12:45 Cardiovascular: Rate: normal, Edema: bilateral lower leg edema, JVD: is not appreciated. 12:45 Respiratory: the patient does not display signs of respiratory distress, Respirations: normal, no use of accessory muscles, no retractions, labored breathing, is not present, Breath sounds: decreased breath sounds, that are mild, throughout. 12:45 Abdomen/GI: Exam negative for discomfort, distension, guarding, Inspection: obese 12:45 Musculoskeletal/extremity: Extremities: grossly normal except: noted in the lateral aspect of right foot: pain, tenderness, Pulses: noted to be 2+ in the right dorsalis pedis artery, the right foot Sensation intact. 12:45 Skin: area od mild erythema and discoloration noted to anterior aspect left lower leg with no drainage. 12:45 Neuro: Orientation: to person, place \\T\\ time. Mentation: is normal, Motor: moves all fours, strength is normal. Vital Signs: 12:10 BP 139 / 70; Pulse 77; Resp 18; Temp 97.0; Pulse Ox 100% on 2 lpm NC; Weight 195.04 kg; ph Height 5 ft. 11 in. (180.34 cm); 14:38 BP 131 / 74; Pulse 53; Resp 20 S; Pulse Ox 95% on NC; Pain 0/10; ag7 12:10 Body Mass Index 59.97 (195.04 kg, 180.34 cm) ph MDM: 12:07 Patient medically screened. cp 13:00 Differential diagnosis: closed fracture, contusion, strain, cellulitis. cp 14:20 Data reviewed: vital signs, nurses notes, radiologic studies, plain films, I have cp discussed the patient's presentation/case with the attending Emergency Department Physician; and as a result, I will discharge patient. 14:20 Test interpretation: by ED physician or midlevel provider: plain radiologic studies. cp Counseling: I had a detailed discussion with the patient and/or guardian regarding: the historical points, exam findings, and any diagnostic results supporting the discharge/admit diagnosis, radiology results, the need for outpatient follow up, a family practitioner, to return to the emergency department if symptoms worsen or persist or if there are any questions or concerns that arise at home. Response to treatment: the patient's symptoms have mildly improved after treatment, and as a result, I will discharge patient. ED course: VSS. Xrays of right foot compared to previous xrays dated 09/28/2014 that showed proximal right fifth metatarsal fracture. Radiologist reports no acute fracture on todays xrays, but patient with significant pain to area. Will treat for stress fracture to proximal right metatarsal with walking boot and recommendation of f/u next 1-2 weeks. Will treat for infection with oral and topical antibiotic to left lower leg as patient reports this area where patient was diagnosed with cellulitis and he is starting to have drainage, pain and redness to area. Will discharge to home for continued monitoring. 10/04 12:29 Order name: XRAY Foot RIGHT 3 View; Complete Time: 14:13 cp 10/04 13:48 Order name: Walking boot; Complete Time: 14:23 cp Administered Medications: 12:36 Drug: Tylenol 1000 mg Route: PO; jd3 13:35 Follow up: Response: No adverse reaction jd3 Disposition Summary: 10/04/21 14:20 Discharge Ordered Location: Home cp Problem: new cp Symptoms: have improved cp Condition: Stable cp Diagnosis - Pain in right foot cp - Local infection of the skin and subcutaneous tissue, unspecified - left lower leg cp Followup: cp - With: Private Physician - When: 7 - 10 days - Reason: right foot pain Discharge Instructions: - Discharge Summary Sheet cp - Cellulitis, Adult cp - Foot Pain cp Forms: - Medication Reconciliation Form cp - Thank You Letter cp - Antibiotic Education cp - Prescription Opioid Use cp Prescriptions: - mupirocin 2 % Topical ointment - apply 1 application by TOPICAL route 3 times per day for 7 days; 30 gram; cp Refills: 0, Product Selection Permitted - Ibuprofen 800 mg Oral Tablet - take 1 tablet by ORAL route every 8 hours As needed take with food; 30 tablet; cp Refills: 0, Product Selection Permitted - Doxycycline Hyclate 100 mg Oral Tablet - take 1 tablet by ORAL route every 12 hours; 20 tablet; Refills: 0, Product cp Selection Permitted - Triamcinolone Acetonide 0.5 % Topical Cream - apply 1 application by TOPICAL route 2 times per day As needed; 1 tube; cp Refills: 0, Product Selection Permitted Addendum: 10/07/2021 19:25 Co-signature as Attending Physician, Angel Thomas MD. r n Signatures: Dispatcher [employer] EDMS Angel Thomas MD MD rn Hall, Patricia, RN RN ph Hernando Olvera PA PA Jose Urbina RN RN jd3 Corrections: (The following items were deleted from the chart) 10/05 00:38 10/04 14:20 ED course: VSS. Xrays of right foot compared. cp cp
--- NOTE | 2021-10-04 14:20 | ER ---
Nurse's Notes [facility] [place] Name: Ihsan Montoya Age: 51 yrs Sex: Male : 1970 Arrival Date: 10/04/2021 Time: 11:30 Bed 18 Private MD: Diagnosis: Pain in right foot;Local infection of the skin and subcutaneous tissue, unspecified-left lower leg Presentation: 10/04 12:10 Chief complaint: Patient states: R foot pain x approx 2 weeks, states, " I've broken ph that foot in the past and it hurts in the same place." denies injury. Also c/o edema w/ weeping to L leg, reports hx of edema and CHF, states that he has been taking his lasix, denies chest pain or SOB, arrived to ED on home oxygen. Coronavirus screen: Vaccine status: Patient reports receiving the 2nd dose of the covid vaccine. Ebola Screen: No symptoms or risks identified at this time. Initial Sepsis Screen: Does the patient meet any 2 criteria? No. Patient's initial sepsis screen is negative. Does the patient have a suspected source of infection? No. Patient's initial sepsis screen is negative. Risk Assessment: Do you want to hurt yourself or someone else? Patient reports no desire to harm self or others. Onset of symptoms was October 04, 2021. 12:10 Method Of Arrival: Ambulatory 12:10 Acuity: STEFAN 3 ph Triage Assessment: 12:13 General: Appears in no apparent distress. Behavior is calm, cooperative, Denies fever. ph Pain: Complains of pain in dorsum of right foot. Neuro: No deficits noted. Cardiovascular:. Respiratory: Respiratory effort is even, unlabored. Musculoskeletal: Circulation, motion, and sensation intact. Range of motion: intact in all extremities. Musculoskeletal: Swelling present in right leg and left leg. 12:17 Injury Description: right mid dorsal patient c/o swelling and pain. ag7 Historical: - Allergies: 12:12 Narcan; "body fits"; ph - Home Meds: 12:12 carvedilol 6.25 mg Oral tab 1 tab 2 times per day [Active]; Eliquis 5 mg Oral tab 1 tab ph 2 times per day [Active]; losartan 50 mg Oral tab 1 tab once daily [Active]; metformin 500 mg Oral tab 1 tab 2 times per day [Active]; methadone 40 mg Oral TbSO 2 tab once daily [Active]; omeprazole 40 mg Oral cpDR 1 cap once daily [Active]; spironolactone 25 mg Oral tab 1 tab once daily [Active]; Vitamin D2 50,000 unit Oral cap 1 cap once daily [Active]; - PMHx: 12:12 Anxiety; Diabetes - NIDDM; drug abuse; EDEMA; Hypertension; Obesity; Panic Attacks; PE; ph - Immunization history:: Adult Immunizations up to date. - Social history:: Smoking status: Patient denies any tobacco usage or history of. Screenin:16 Abuse screen: Denies threats or abuse. Nutritional screening: No deficits noted. ag7 Tuberculosis screening: No symptoms or risk factors identified. Fall Risk Fall in past 12 months (25 points). No secondary diagnosis (0 pts). No IV (0 pts). Ambulatory Aid- None/Bed Rest/Nurse Assist (0 pts). Gait- Impaired (20 pts.). Mental Status- Oriented to own ability (0 pts). Total Razo Fall Scale indicates High Risk Score (45 or more points). Fall prevention measures have been instituted. Placed Close to Nursing Station Frequent Obs/Assessments Occuring As available patient and family educated on Fall Prevention Program and Strategies. Assessment: 12:06 Pain: Complains of pain in dorsum of right foot Pain does not radiate. Pain currently ag7 is 9 out of 10 on a pain scale. Quality of pain is described as sharp, Pain began suddenly, Is intermittent, Alleviated by rest, Aggravated by weight bearing. Neuro: Level of Consciousness is awake, alert, obeys commands, Oriented to person, place, time, situation, Appropriate for age [employer] are equal bilaterally Cardiovascular: Reports None Capillary refill < 3 seconds Patient's skin is warm and dry. Respiratory: Airway is patent Trachea midline Respiratory effort is even, unlabored, Respiratory pattern is regular, symmetrical, continuous 02 from home. Musculoskeletal: Capillary refill < 3 seconds, toes. Range of motion: intact in all extremities, Swelling present in right foot and left allen Reports pain in dorsum of right foot Patient c/o numbness to the left anterior leg that's intermittent. 13:06 Reassessment: Patient and/or family updated on plan of care and expected duration. Pain ag7 level reassessed. Patient is alert, oriented x 3, equal unlabored respirations, skin warm/dry/pink. Patient states symptoms have improved. 14:06 Reassessment: Patient and/or family updated on plan of care and expected duration. Pain ag7 level reassessed. Patient is alert, oriented x 3, equal unlabored respirations, skin warm/dry/pink. Vital Signs: 12:10 BP 139 / 70; Pulse 77; Resp 18; Temp 97.0; Pulse Ox 100% on 2 lpm NC; Weight 195.04 kg; ph Height 5 ft. 11 in. (180.34 cm); 14:38 BP 131 / 74; Pulse 53; Resp 20 S; Pulse Ox 95% on NC; Pain 0/10; ag7 12:10 Body Mass Index 59.97 (195.04 kg, 180.34 cm) ph ED Course: 11:30 Patient arrived in ED. kz 11:37 Hernando Olvera PA is PHCP. cp 11:37 Angel Thomas MD is Attending Physician. shanique 11:57 Ary Redd, GENNA is Primary Nurse. ag7 12:12 Triage completed. ph 12:13 Arm band placed on Patient placed in an exam room, on a stretcher. ph 12:17 Patient has correct armband on for positive identification. Bed in low position. Call ag7 light in reach. 13:36 XRAY Foot RIGHT 3 View In Process Unspecified. EDMS 14:51 No provider procedures requiring assistance completed. ag7 14:52 Patient did not have IV access during this emergency room visit. ag7 Administered Medications: 12:36 Drug: Tylenol 1000 mg Route: PO; jd3 13:35 Follow up: Response: No adverse reaction jd3 Outcome: 14:20 Discharge ordered by . cp 14:51 Discharged to home via wheelchair. ag7 14:51 Condition: stable 14:51 Discharge instructions given to patient, Instructed on discharge instructions, follow up and referral plans. medication usage, Demonstrated understanding of instructions, follow-up care, medications, Prescriptions given X 4. 14:52 Patient left the ED. ag7 Signatures: Dispatcher [employer] EDCO Carleen Prasad RN RN Hernando Olvera PA PA cp Davies, Jonathon, RN RN jd3 Zapata, Kelly Ary Redd RN RN ag7
[2021-10-04 15:04] VITALS: TEMP 97
[2021-10-04 15:11] VITALS: BP 131/74; O2SAT 95
== END 2021-10-04 14:52 | disposition home or self-care (01) ==
LOC: ER 11:25
DX: M79.671 Pain in right foot (principal); L03.116 Cellulitis of left lower limb; L08.89 Other specified local infections of the skin and subcutaneous tissue; E11.8 Type 2 diabetes mellitus with unspecified complications; R60.9 Edema, unspecified; I10 Essential (primary) hypertension; Z88.8 Allergy status to other drugs, medicaments and biological substances
CPT/HCPCS: 99283